=== PATIENT | female | born 1940 | race Caucasian/White ===

== ENCOUNTER 2020-01-11 17:25 | Emergency (ER) | payer MEDICARE, OTHER ==
[~2020-01-11] VITALS: Ht 167.6 cm; Wt 65.8 kg
--- OUTSIDE RECORDS SUMMARY | ~2020-01-11 | XMS | Encounter Summary ---
Demographics + + + | Address | [address] | | | [place] [address] | + + + | Home Phone | | + + + | Preferred Language | Unknown | + + + | Marital Status | | + + + | Uatsdin Affiliation | Unknown | + + + | Race | Unknown | + + + | Ethnic Group | Unknown | + + + Author + + + | Author | [facility] | | | and Petey | + + + | Organization | [facility] | | | and [place] | + + + | Address | Unknown | + + + | Phone | Unavailable | + + + Support + + + + + | Name | Relationship | Address | Phone | + + + + + | Alejandro Corea | ECON | [address] | | | | | [place] [address] | | + + + + + Care Team Providers + +------+ + | Care Embryology Teacher Name | Role | Phone | + +------+ + | Avel Neville MD | PCP | | + +------+ + Reason for Visit + + + | Reason | Comments | + + + | Hand Pain | hands locking | + + + Evaluate & Treat (Routine) +--------+--------+ + + + + | Status | Reason | Specialty | Diagnoses / | Referred By | Referred To | | | | | Procedures | Contact | Contact | +--------+--------+ + + + + | Closed | | Physical | Diagnoses | | [place], | | | | Medicine and | Disturbance | [place], | Aristides Moran MD | | | | Rehabilitatio | of skin | Aristides Moran MD | [address] | | | | n | sensation | [address] | [place] | | | | | Procedures | [place] | [place], [place] | | | | | [place] | [place], [place] | [address] Phone: | | | | | &/SENS 1-2 | [address] | [phone] | | | | | NRV CNDJ | Phone: | Fax: | | | | | PRECONF | [phone] | [phone] | | | | | ELTRODE LIMB | Fax: | | | | | | bilateral | [phone] | | | | | | upper ext | | | | | | | NCS/EMG-weak | | | | | | | ness, | | | | | | | possible CT | | | +--------+--------+ + + + + Encounter Details +--------+ + + + + | Date | Type | Department | Care Team | Description | +--------+ + + + + | 05/08/ | Procedure | [facility] [place] | Aristides Fernandez | Hand weakness | | 2013 | visit | PHYSIATRY [address] | [address] | (Primary Dx) | | | | [address] | [place] | | | | | [place], [place] | [address] | | | | | [address] | | | | | | [phone] | | | +--------+ + + + + Social History + + + +--------+------+ | Tobacco Use | Types | Packs/Day | Years | Date | | | | | Used | | + + + +--------+------+ | Former Smoker | Cigarettes | 1 | 20 | | + + + +--------+------+ + + +---------+ + | Alcohol Use | Drinks/Week | oz/Week | Comments | + + +---------+ + | Yes | | | 1 drink per day | + + +---------+ + + + + | Sex Assigned at | Date Recorded | | | | + + + | Not on file | | + + + + + + + | Job Start Date | Occupation | Industry | + + + + | Not on file | Not on file | Not on file | + + + + + + + + | Travel History | Travel Start | Travel End | + + + + + + | No recent travel history available. | + + documented as of this encounter Last Filed Vital Signs + + + + + | Vital Sign | Reading | Time Taken | Comments | + + + + + | Blood Pressure | 120/74 | 05/08/2014 11:17 AM | | | | | PDT | | + + + + + | Pulse | 59 | 05/08/2014 11:17 AM | | | | | PDT | | + + + + + | Temperature | - | - | | + + + + + | Respiratory Rate | - | - | | + + + + + | Oxygen Saturation | - | - | | + + + + + | Inhaled Oxygen | - | - | | | Concentration | | | | + + + + + | Weight | 67.1 kg (148 lb) | 05/08/2014 11:17 AM | | | | | PDT | | + + + + + | Height | 166.4 cm (5' 5.5") | 05/08/2014 11:17 AM | | | | | PDT | | + + + + + | Body Mass Index | 24.25 | 05/08/2014 11:17 AM | | | | | PDT | | + + + + + documented in this encounter Progress Notes Aristides Fernandez MD - 05/09/2014 7:14 AM PDT [facility] Musculoskeletal, Sports and Spine, Physiatry [facility] [address] [address] Test Date: 05/08/2014 Patient Name: Yen Corea : 1940 Physician: Aristides Fernandez MD MR #: [id number] Sex: Female Referring Physician: Clayton [place] MD HISTORY: Ms. Yen Corea is a pleasant 73 year-old female who is being seen today at the request of Dr. Clayton [place] for complaints of bilateral hand cramping and pain. She has a lso noticed atrophy of the muscles of the thenar eminences, especially on the left, and weak ness of the hands. She denies any hand cramping. She also denies any significant pain. Geronimo dumont has had a thyroidectomy and takes thyroid supplements. She denies any diabetes, cancer or alcohol abuse. Nerve Conduction Studies Anti Sensory Summary Table Site NR Peak (ms) Norm Peak (ms) P-T Amp (V) Norm P-T Amp Site1 Site2 Delta-P (ms) Dist (cm) Mervin (m/s) Norm Mervin (m/s) Left Radial Anti Sensory (Base 1st Digit) Wrist 3.0 <3.1 33.9 Wrist Base 1st Digit 3.0 0.0 Motor Summary Table Site NR Onset (ms) Norm Onset (ms) O-P Amp (mV) Norm O-P Amp Site1 Site2 Delta-0 (ms) Dist (cm) Mervin (m/s) Norm Mervin (m/s) Left Median Motor (Abd Poll Brev) Wrist 3.7 <4.2 10.6 >5 Elbow Wrist 3.9 22.0 56 >50 Elbow 7.6 9.1 Left Ulnar Motor (Abd Dig Minimi) Wrist 3.1 <4.2 6.7 >3 B Elbow Wrist 3.7 20.0 54 >53 B Elbow 6.8 6.6 A Elbow B Elbow 1.8 10.0 56 >53 A Elbow 8.6 6.1 Comparison Summary Table Site NR Peak (ms) Norm Peak (ms) P-T Amp (V) Site1 Site2 Delta-P (ms) Norm Delta (ms) Left Median/Ulnar Palm Comparison (Wrist - 8cm) Median Palm 2.0 <2.2 108.8 Median Palm Ulnar Palm 0.1 <0.3 Ulnar Palm 2.1 <2.2 30.4 Nerve Conduction Studies Motor Left/Right Comparison Site L Lat (ms) R Lat (ms) L-R Lat (ms) L Amp (mV) R Amp (mV) L-R Amp (%) Site1 Site2 L Ve l (m/s) R Mervin (m/s) L-R Mervin (m/s) Median Motor (Abd Poll Brev) Wrist 3.7 10.6 Elbow Wrist 56 Elbow 7.6 9.1 Ulnar Motor (Abd Dig Minimi) Wrist 3.1 6.7 B Elbow Wrist 54 B Elbow 6.8 6.6 A Elbow B Elbow 56 A Elbow 8.6 6.1 Anti Sensory Left/Right Comparison Site L Lat (ms) R Lat (ms) L-R Lat (ms) L Amp (V) R Amp (V) L-R Amp (%) Site1 Site2 L Mervin (m/s) R Mervin (m/s) L-R Mervin (m/s) Radial Anti Sensory (Base 1st Digit) Wrist 3.0 33.9 Wrist Base 1st Digit Comparison Left/Right Comparison Site L Lat (ms) R Lat (ms) L-R Lat (ms) L Amp (V) R Amp (V) L-R Amp (%) Median/Ulnar Palm Comparison (Wrist - 8cm) Median Palm 2.0 108.8 Ulnar Palm 2.1 30.4 NCV FINDINGS: All nerve conduction studies (as indicated in the preceding tables) were well within normal limits. EMG FINDINGS: No needle EMG was performed today per the patient s request. IMPRESSION: Normal nerve conduction studies on the left upper extremity without any neurologic explanat ion for the patient s symptoms. Specifically, there was no evidence of carpal tunnel syndrome, ulnar neuropathy or peripher al neuropathy. She does report a history of chronic cramping of the feet and hands. She has noticed that this improves with good hydration and intake of electrolytes such as potassium. She does also have a lot of arthritis in the hands which may have contributed to some disco mfort and weakness. I do often see thenar eminence atrophy without denervation in patients with significant 1st CMC arthritis. The study was requested as testing of bilateral upper extremities but after the left upper extremity was found to be normal testing was discontinued per the patient request. Thank you for allowing me to perform neurodiagnostic testing on your patient. If you have a ny further questions or comments, please do not hesitate to call. Aristides Fernandez MD Fellow, [employer]. documented in thi s encounter Plan of Treatment +--------+---------+ + + + | Date | Type | Specialty | Care Team | Description | +--------+---------+ + + + | 05/27/ | Office | Cardiology | [place], | | | 2019 | Visit | | MD [address]ooja LEAL | | | | | | [place] | | | | | | [address] | | | | | | | | +--------+---------+ + + + documented as of this encounter Visit Diagnoses + + | Diagnosis | + + | Hand weakness - Primary Muscle weakness (generalized) | + + documented in this encounter
--- OUTSIDE RECORDS SUMMARY | ~2020-01-11 | XMS | Encounter Summary ---
Demographics + + + | Address | [address] | | | [place] [address] | + + + | Home Phone | | + + + | Preferred Language | Unknown | + + + | Marital Status | | + + + | Yarsanism Affiliation | Unknown | + + + | Race | Unknown | + + + | Ethnic Group | Unknown | + + + Author + + + | Author | [facility] | | | and [place]ey | + + + | Organization | [facility] | | | and [place] | + + + | Address | Unknown | + + + | Phone | Unavailable | + + + Support + + + + + | Name | Relationship | Address | Phone | + + + + + | Alejandro Corea | ECON | [address] | | | | | [place] [address] | | + + + + + Care Team Providers + +------+ + | Care Cold Water Machine Operator Name | Role | Phone | + +------+ + PCP | Unavailable | + +------+ + Encounter Details +--------+ + + + + | Date | Type | Department | Care Team | Description | +--------+ + + + + | 06/06/ | Hospital | [facility] | | | | 1990 - | Encounter | MED CTR GENERIC OP | | | | | | CONV DEPT [address] | | | | 09/05/ | | [place], | | | | 1990 | | [place] [address] | | | | | | [phone] | | | +--------+ + + + + Social History + +-------+ +--------+------+ | Tobacco Use | Types | Packs/Day | Years | Date | | | | | Used | | + +-------+ +--------+------+ | Never Assessed | | | | | + +-------+ +--------+------+ + + + | Sex Assigned at [...] + + documented as of this encounter Plan of Treatment +--------+---------+ + + + | Date | Type | Specialty | Care Team | Description | +--------+---------+ + + + | 02/14/ | Office | Cardiology | [place], | | | 2019 | Visit | | MD [address]ooja LEAL | | | | | | [place] | | | | | | [id number] | | | | | | | | +--------+---------+ + + + documented as of this encounter Visit Diagnoses Not on filedocumented in this encounter"
--- OUTSIDE RECORDS SUMMARY | ~2020-01-11 | XMS | Encounter Summary ---
Demographics + + + | Address | [address] | | | [place] [address] | + + + | Home Phone | | + + + | Preferred Language | Unknown | + + + | Marital Status | | + + + | Baptist Affiliation | Unknown | + + + | Race | Unknown | + + + | Ethnic Group | Unknown | + + + Author + + + | Author | [facility] | | | and [place] | + + + | Organization | [facility] | | | and [place] | + + + | Address | Unknown | + + + | Phone | Unavailable | + + + Support + + + + + | Name | Relationship | Address | Phone | + + + + + | Alejandro Corea | ECON | [address] | | | | | [place] [address] | | + + + + + Care Team Providers + +------+ + | Care Deburring And Tooling Machine Operator Name | Role | Phone | + +------+ + | Avel Neville MD | PCP | | + +------+ + Reason for Visit +--------+ + | Reason | Comments | +--------+ + | Asthma | follow up | +--------+ + Encounter Details +--------+---------+ + + + | Date | Type | Department | Care Team | Description | +--------+---------+ + + + | 12/17/ | Office | [facility] [place] | [place], | Chronic bronchitis | | 2016 | Visit | PULMONARY [address] | Bela Funez MD | with productive | | | | [place], | | mucopurulent cough | | | | [place] [address] | | (HCC) (Primary Dx); | | | | [phone] | | Moderate persistent | | | | | | asthma with acute | | | | | | exacerbation; | | | | | | Allergic rhinitis | | | | | | due to pollen | +--------+---------+ + + + Social History + + + +--------+ + | Tobacco Use | Types | Packs/Day | Years | Date | | | | | Used | | + + + +--------+ + | Former Smoker | Cigarettes | 0.7 | 30 | Quit: 09/04/1999 | + + + +--------+ + + + +---------+ + | Alcohol Use | Drinks/Week | oz/Week | Comments | + + +---------+ + | Yes | 7 Standard drinks | 7.0 | About 2oz per day | | | or equivalent | | | + + +---------+ + + + [...] + + + | Blood Pressure | 104/62 | 12/18/2015 3:05 PM | | | | | PDT | | + + + + + | Pulse | 71 | 12/18/2015 3:05 PM | | | | | PDT | | + + + + + | Temperature | - | - | | + + + + + | Respiratory Rate | - | - | | + + + + + | Oxygen Saturation | 98% | 12/18/2015 3:05 PM | | | | | PDT | | + + + + + | Inhaled Oxygen | - | - | | | Concentration | | | | + + + + + | Weight | 72.3 kg (159 lb 8 | 12/18/2015 3:05 PM | | | | oz) | PDT | | + + + + + | Height | 167.6 cm (5' 6") | 12/18/2015 3:05 PM | | | | | PDT | | + + + + + | Body Mass Index | 25.74 | 12/18/2015 3:05 PM | | | | | PDT | | + + + + + documented in this encounter Patient Instructions Patient Instructions Bela Eric MD - 12/18/2015 4:02 PM PDTNo changes today. I think overall you are doing well. We will give you the methylprednisolone injection today. If you do not improve, let me know . documented in this encounter Progress Notes Bela Eric MD - 12/18/2015 3:11 PM PDTFormatting of this note might be differe nt from the original. Pulmonary Follow Up Note HPI Yen Corea is a 75 y.o. female patient of Avel Neville here today for follo w up of asthma and chronic bronchitis. At their last visit, we increased her Advair to twice daily. They return today for routine follow up. Since last seen, she feels like overall she has done well. She has not been sick or had to take prednisone. Her controller regimen consists of Advair 250 mcg 1 inhalation twice daily theophylline 300 mg daily and Singulair 10mg daily. She used her albuterol once since last seen. She notes that in the spring, she usually gets a cough with a sticky clear mucous and hoars e voice. She often gets a Kenalog shot for this as she finds it helps. She typically gets on e steroid shot per year. She does not have symptoms of nasal congestion, rhinorrhea and post nasal drip. She is on c etirizine 10mg daily for treatment of this. She does have symptoms of heartburn or acid reflux. She is taking Prilosec once daily. Past Medical History Past Medical History Diagnosis Date Asthma Allergic rhinitis Fractured nose Osteopenia COPD (chronic obstructive pulmonary disease) ([facility]) Constipation, chronic Hyperlipidemia Hypothermia due to non-environmental cause Hypothyroidism Lichen planus Osteoarthritis Raynaud's syndrome Spinal stenosis Thrombophlebitis Vitamin D deficiency Radiculopathy, lumbosacral region Edema Essential hypertension GERD (gastroesophageal reflux disease) Low back pain Menopausal disorder Osteoarthrosis Exanthem Contact urticaria Varicose veins of lower extremities with complications Venous insufficiency Vaginitis TIA (transient ischemic attack) echo @ [facility] 08/06/15 unsrue of results Heart beat abnormality Anxiety Osteoporosis Bilateral low back pain with sciatica 11/19/2015 Lumbar radiculopathy 11/19/2015 Past Surgical History Past Surgical History Procedure Laterality Date Anastacio and bso 1979 Appendectomy Thyroidectomy 2000 Tonsillectomy Micro venectomy Bilateral 01/04/2014 legs Breast cyst excision Total knee arthroplasty 01/2015 Dr. 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 Social History Main Topics Smoking status: Former Smoker -- 0.70 packs/day for 30 years Types: Cigarettes Quit date: 09/04/1999 Smokeless tobacco: Not on file Alcohol Use: 4.2 oz/week 7 Standard drinks or equivalent per week Comment: About 2oz per day Drug Use: No Sexual Activity: No Other Topics Concern None Social History Narrative Lives: in [place] With: her anastasiya Grew up: in [place], [place] Has previously lived in: [place], [place], [place], [place] Exposure to toxic chemicals: yes, not sure of type Exposure to asbestos: no Exposure to tuberculosis: no Has had a PPD or Quantiferon before: yes, last many years ago Has pets at home: 1 cat Has ever owned birds: no Other animal exposures: no Hobbies: art, travel camping, fishing Allergies: Allergies Allergen Reactions Amoxicillin Hives and Rash Dust Mite Extract Meperidine Molds & Smuts Oxycodone Medications: Outpatient Encounter Prescriptions as of 12/18/2015 Medication Sig Dispense Refill albuterol (PROAIR HFA) 90 mcg/puff inhaler Inhale 2 puffs into the lungs every 6 hours as needed for Wheezing or Shortness of Breath. 1 Inhaler 3 albuterol 2.5 mg/3 mL nebulizer solution Take 2.5 mg by nebulization every 6 hours as n eeded. aspirin 325 mg tablet Take 325 mg by mouth Daily. busPIRone (BUSPAR) 10 MG tablet Take 5 mg by mouth every morning. CTGLQRY-SPSRODLEX-WCXP PO TABS. 2 tablets by mouth daily Calcium-Vitamin D 600-200 MG-UNIT TABS Take 1 tablet by mouth Daily. cetirizine (ZYRTEC) 10 mg tablet Take 1 tablet by mouth Daily. 30 tablet 11 Cholecalciferol (VITAMIN D3 PO) CAPS. 2 capsules by mouth daily Cranberry 300 MG TABS Take 1 tablet by mouth Daily. estradiol (CHAD) 0.05 mg/24 hr One tablet by mouth daily fluticasone (FLONASE) 50 mcg/nasal spray instill 2 sprays into each nostril once daily 16 g 11 fluticasone-salmeterol (ADVAIR DISKUS) 250-50 mcg/puff diskus inhaler inhale 1 dose by mouth twice a day 60 each 6 HYDROcodone-acetaminophen (VICODIN) 5-500 mg per tablet Take 1 tablet by mouth every 6 hours as needed. ipratropium (ATROVENT HFA) 17 mcg/puff inhaler 2 puffs inhaled every 4 hours as needed for shortness of breath Lactobacillus (ACIDOPHILUS) TABS 4 tablets by mouth daily levothyroxine (LEVOXYL) 112 mcg tablet Take 112 mcg by mouth Every other day. montelukast (SINGULAIR) 10 mg tablet Take 1 tablet by mouth Daily. 30 tablet 6 multivitamin (THERAGRAN) per tablet 1 tablet by mouth daily omeprazole (PRILOSEC) 40 MG capsule Take 40 mg by mouth every morning (before breakfast ). potassium chloride (KLOR-CON) 10 mEq CR tablet Take 20 mEq by mouth 2 times daily. promethazine-codeine (PHENERGAN WITH CODEINE) 6.25-10 mg/5 mL syrup Take 5-10 mLs by [facility] 4 times daily as needed for Cough. tacrolimus (PROTOPIC) 0.1 % ointment Apply topically 2 times daily. theophylline (THEOPHYLLINE) 300 mg 12 hr tablet Take 300 mg by mouth 2 times daily. thyroid (ARMOUR) 15 MG tablet Take 15 mg by mouth Daily. triamcinolone (KENALOG) 0.1% paste Place onto teeth 2 times daily. triamterene-hydrochlorothiazide (MAXZIDE) 75-50 mg per tablet Take 75-50 mg by mouth as needed. No facility-administered encounter medications on file as of 12/18/2015. Review of Systems: General: [x]Weight loss/gain (over 10 lbs) []Fever/chills/sweats []Night sweats EENT: []Hearing loss []Vision loss/change [x]Sinus congestion/nasal drainage []Nosebleeds []Hoarseness Cardiac: []Chest pain []Palpitations/heart racing []Swelling of legs/ankles []Waking up at night s hort of breath []Difficulty sleeping flat Gastrointestinal: []Nausea/vomiting []Difficulty swallowing [x]Heartburn/acid reflux []Loss of appetite []A bdominal pain Urologic: []Blood in urine []Frequent urination at night []Burning/painful urination []Difficulty wit h urination Objective BP 104/62 mmHg | Pulse 71 | Ht 1.676 m (5' 6") | Wt 72.349 kg (159 lb 8 oz) | BMI 25.76 kg/ m2 | SpO2 98% General Appearance: Alert, cooperative, no distress, appears stated age Head: Normocephalic, without obvious abnormality, atraumatic Eyes: PERRL, conjunctiva clear, no scleral icterus, EOM's intact Ears: Normal TM's, external auditory canals, normal acuity Nose: Nares normal, septum midline, mucosa edematous Mouth: No oral lesions or exudate Neck: Supple, symmetrical, no adenopathy Lungs: No accessory muscle use, breath sounds are somewhat diminished bilaterally with so me prolongation of the expiratory phase, no wheezes, crackles or rhonchi Chest Wall: No deformity Heart: Regular rate and rhythm, no murmur, rub or gallop Abdomen: Soft, non-tender, non-distended Extremities: No cyanosis, clubbing, or edema Pulses: Radial pulses 2+ and symmetric Skin: Warm and dry Lymph nodes: Cervical and supraclavicular nodes normal Data: Immunization History Administered Date(s) Administered INFLUENZA, TRIVALENT PRESERVATIVE FREE (PED/ADOL/ADULT) 05/05/2015 PNEUMOCOCCAL CONJUGATE 13-VALENT (PCV13) 05/05/2015 Assessment ICD-10-CM ICD-9-CM 1. Chronic bronchitis with productive mucopurulent cough (HCC) J41.1 491.1 She feels she ne eds a steroid injection today as she is slipping down the pathway towards worsening. Otherwise we will continue her current regimen. methylprednisoLONE acetate (DEPO-MEDROL) 80 mg/mL injection 80 mg 2. Moderate persistent asthma with acute exacerbation J45.41 493.92 On Singulair, Advair an d theophylline. She feels like this has worked well for some time for her. 3. Allergic rhinitis due to pollen J30.1 477.0 No current symptoms. On Singulair, cetirizin e and fluticasone nasal spray. Plan 1.Continue on Advair 250 mcg dose. If she has more exacerbations, consider change to 500 mc g dose, though as I recall, she never felt she did better on this. 2.Continue theophylline 300mg once daily. 3.Continue on montelukast 10mg daily. 4. Continue on fluticasone nasal spray 2 sprays to each nostril daily and cetirizine 10mg d aily. 5. Medications were refilled for 1 year. 6. Methylprednisolone 80mg IM given x 1 today. She was advised to call if new pulmonary symptoms were to develop. Return to clinic in 6 months, or sooner with concerns. CC: Avel Neville Portions of this report were transcribed using voice recognition software. Every effort wa s made to ensure accuracy; however, inadvertent computerized corporate claims examiner errors may be pre sent. documented in t his encounter Plan of Treatment +--------+---------+ + + + | Date | Type | Specialty | Care Team | Description | +--------+---------+ + + + | 02/14/ | Office | Cardiology | [place], | | | 2019 | Visit | | MD [address]ooja LEAL | | | | | | [place] | | | | | | [id number] | | | | | | | | +--------+---------+ + + + documented as of this encounter Visit Diagnoses + + | Diagnosis | + + | Chronic bronchitis with productive mucopurulent cough (HCC) - Primary Mucopurulent | | chronic bronchitis | + + | Moderate persistent asthma with acute exacerbation | + + | Allergic rhinitis due to pollen | + + documented in this encounter
--- OUTSIDE RECORDS SUMMARY | ~2020-01-11 | XMS | Encounter Summary ---
Demographics + + + | Address | [address] | | | [place] [address] | + + + | Home Phone | | + + + | Preferred Language | Unknown | + + + | Marital Status | | + + + | Zoroastrianism Affiliation | Unknown | + + + | Race | Unknown | + + + | Ethnic Group | Unknown | + + + Author + + + | Author | [facility] | | | and [place] | + + + | Organization | [facility] | | | and [place] | + + + | Address | Unknown | + + + | Phone | Unavailable | + + + Support + + + + + | Name | Relationship | Address | Phone | + + + + + | Alejandro Corea | ECON | [address] | | | | | [place] [address] | | + + + + + Care Team Providers + +------+ + | Care Structural Drafter Name | Role | Phone | + +------+ + PCP | Unavailable | + +------+ + Encounter Details +--------+ + + + + | Date | Type | Department | Care Team | Description | +--------+ + + + + | 06/02/ | Abstract | [place] [facility] | DATA MIGRATION JONATHAN | | | 2011 | | Conversion Location | SR | | | | | [facility] | | | | | | [place], [place] | | | | | | [address] | | | | | | [phone] | | | +--------+ + + + [...] + + + | Blood Pressure | 120/78 | 04/21/2012 12:00 AM | | | | | PDT | | + + + + + | Pulse | - | - | | + [...] + + + + | Weight | 71.4 kg (157 lb 8 | 04/21/2012 12:00 AM | | | | oz) | PDT | | + + + + + | Height | 168.9 cm (5' 6.5") | 05/13/2010 12:00 AM | | | | | PDT | | + + + + + | Body Mass Index | 25.04 | 05/13/2010 12:00 AM | | | | | PDT | | + + + + + documented in this encounter Plan of Treatment +--------+---------+ + + + | Date | Type | Specialty | Care Team | Description | +--------+---------+ + + + | 02/14/ | Office | Cardiology | Jon [place], | | | 2019 | Visit | | MD Pooja LEAL | | | | | | [place] | | | | | | [address] | | | | | | | | +--------+---------+ + + + documented as of this encounter Visit Diagnoses Not on filedocumented in this encounter
--- OUTSIDE RECORDS SUMMARY | ~2020-01-11 | XMS | Encounter Summary ---
Demographics + + + | Address | [address] | | | [place] [address] | + + + | Home Phone | | + + + | Preferred Language | Unknown | + + + | Marital Status | | + + + | Synagogue Affiliation | Unknown | + + + | Race | Unknown | + + + | Ethnic Group | Unknown | + + + Author + + + | Author | [facility] | | | and [place] | + + + | Organization | [facility] | | | and [place] | + + + | Address | Unknown | + + + | Phone | Unavailable | + + + Support + + + + + | Name | Relationship | Address | Phone | + + + + + | Alejandro Corea | ECON | [address] | | | | | [place] [address] | | + + + + + Care Team Providers + +------+ + | Care Electric Meter Tester Name | Role | Phone | + +------+ + | Avel Neville MD | PCP | | + +------+ + Reason for Referral Surgical (Routine) +--------+ + + + + + | Status | Reason | Specialty | Diagnoses / | Referred By | Referred To | | | | | Procedures | Contact | Contact | +--------+ + + + + + | Closed | Specialty | Surgery / | Diagnoses | Field, | Field, | | | Services | General | Varicose | Jignesh Roca, | Jignesh Roca, | | | Required | Surgery | veins of | MD, FACS | MD, FACS [address] | | | | | lower | [address] | [address] | | | | | extremities | [place], | | | | | with other | [place], [place] | [place] [address] | | | | | complication | [id number] | Phone: | | | | | s | Phone: | [phone] | | | | | Procedures | [phone] | Fax: | | | | | SD PHLEB | Fax: | [phone] | | | | | VEINS - | [phone] | | | | | | EXTREM - TO | | | | | | | [address] SD | | | | | | | INJECTION | | | | | | | THERAPY | | | | | | | VEIN,MULT | | | | | | | VEINS | | | +--------+ + + + + + Reason for Visit + + + | Reason | Comments | + + + | 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 | Jignesh Benjamin | Varicose veins of | | 2012 | Visit | SURGERY [address] | MD Chanelle, FACS [address] | lower extremities | | | | [place], [place] | [address] [facility] | with other | | | | [address] | [place] [address] | complications | | | | [phone] | [phone] | (Primary Dx) | | | | | | | +--------+---------+ + + + Social History [...] Comments | + + +---------+ + | Not Asked | | | | + + +---------+ + [...] + + + | Blood Pressure | 122/68 | 08/10/2013 9:09 AM | | | | | PST | | + + + + + | Pulse | 60 | 08/10/2013 9:09 AM | | | | | PST | | + + + + + | Temperature | 35.8 C (96.5 F) | 08/10/2013 9:09 AM | | | | | PST | | + + + + + | Respiratory Rate | - | - | | + + + + + | Oxygen Saturation | 100% | 08/10/2013 9:09 AM | | | | | PST | | + + + + + | Inhaled Oxygen | - | - | | | Concentration | | | | + + + + + | Weight | 64 kg (141 lb) | 08/10/2013 9:09 AM | | | | | PST | | + + + + + | Height | 166.4 cm (5' 5.5") | 08/10/2013 9:09 AM | | | | | PST | | + + + + + | Body Mass Index | 23.11 | 08/10/2013 9:09 AM | | | | | PST | | + + + + + documented in this encounter Progress Notes Ines Bullard RN - 08/11/2013 4:19 PM PST Fr max Hawthorne MD - 08/10/2013 9:07 AM PSTFormatting of this note might be different from the o riginal. Patient Identification: Yen Corea 1940 Is a 73 y.o. female, a patient of Avel Neville. 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 Eg- pain, heaviness, unsightly, bleeding, clots. Burning, deep ache , bleed easily--if scratches, then gets knots and the veins bleed. Oft en bleeds in the shower. Puts legs up. Which leg is the worst? right When did you start getting varicose veins ? In the 80's, or early 70;s Have you tried wearing compression or support stockings? yes Have you had previous treatment for varicosities? Eg injection sclerotherapy, laser or r adiofrequency ablation or surgery ? Yes, laser treatments--Dr from [place] to the [facility] in [place]. Turned brown a nd stayed there. Was the little veins. Physician notes: Notes the big veins bother her. Had ultrasound at [facility] and said the valves are gone. And Dr Gary said unrepairable. Right one hurts the worse. Not concerned about appeara nce, just the health of her legs. When they break they burn and bleed. And it feels like a bite. Also deep inside, questionable ached. From calf to medial thigh. Relieved with Elevating legs. Pain runs through. --happens frequently, but doesn't stay. Wearing comp ression stockings helps somewhat. Wear with travel and plane. And when she exercises. Wa lked a [place] two years ago. Did the [place] Did 10 Hours. 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 4 lbs. Avel Neville's notes were reviewed in clinic today. PAST MEDICAL HISTORY She has a past medical history of Asthma; Allergic rhinitis; Sprained ankle; Fractured nose ; and BRONCHITIS, OBSTRUCTIVE CHRONIC. Past Surgical History She Past Surgical History Procedure Date Anastacio and bso Appendectomy Thyroidectomy Tonsillectomy Allergies Allergen Reactions Amoxicillin Oxycodone Medications: She has a current medication list which includes the following prescription(s): advair disk us, proair hfa, thyroid, buspirone, lpttaxh-cxsakfffv-aivy, caltrate 600+d, cholecalciferol, kvng, fluticasone, atrovent hfa, acidophilus, levothyroxine, levothyroxine, claritin, mult ivitamin, omeprazole, potassium chloride, theophylline, triamterene-hydrochlorothiazide, and accolate. Family History: Her family history includes Allergies in her father; Colon cancer in an unspecified family member; and Coronary artery disease in her father. Social History: She reports that she has quit smoking. Her smoking use included Cigarettes. She has a 20 pa ck-year smoking history. She does not have any smokeless tobacco history on file. REVIEW OF SYSTEMS General: []Weight loss/gain (over 10 lbs) []Fever/chills []Night sweats Hematologic: []Bleeding/brusing tendencies []Blood transfusion []Anemia Heent: []Hearing loss []Vision loss []Sinus problems/nosebleeds []Hoarseness Respiratory: []Wheezing []Shortness of breat [x]Cough []Spitting up blood []On oxygen Cardiac: []Chest pain []Palpitations/heart racing []Swelling of ankles/hands []Unusual shortness of breath []Difficulty sleeping flat Gastrointestinal: []Nausea/vomiting []Difficulty swallowing [x]Heartburn []Loss of appetite []Abdominal mateo n []Stomach Ulcers []Diarrhea []Constipation []Blood in stool Vascular: []Perry/TIAs []Fainting []Difficulty with speech [x]Leg cramps []Pain in feet/legs at rest []Foot ulcers/sores [x]Varicose veins []Phlebitis/blood clots Musculoskeletal: [x]Joint stiffness/swelling []Join pain []Back pain []Arthritis []Gout Urologic: []Blood in urine []Frequent urination at night []Burning/painful urination []Kidney stones []Difficulty urination [x]Sexual difficulties Neuro/Psychiatric: []Headaches []Seizures []Depression []Pain/anxiety attacks []Memory loss or confusion PHYSICAL EXAM BP 122/68 | Pulse 60 | Temp 35.8 C (96.5 F) (Temporal) | Ht 1.664 m (5' 5.5") | Wt 63.9 57 kg (141 lb) | BMI 23.11 kg/m2 | SpO2 100% General Appearance: Alert, cooperative, no distress, appears stated age Head: Normocephalic, without obvious abnormality, atraumatic Eyes: PERRL, conjunctiva/corneas clear, EOM's intact Ears: Hearing adequate Nose: Nares normal Throat: Lips, mucosa, and tongue normal; teeth and gums normal Neck: Supple, symmetrical, no adenopathy, no neck bruits Lungs: Breath sounds are equal bilaterally, no wheezes or crackles Chest Wall/Back: No tenderness or deformity. No CVA tenderness Heart: Regular rate and rhythm, no murmur. Abdomen: Soft, non-tender, no pulsatile nor other masses, scars Extremities: Varicosities: LEFT leg Knee 3 mm varicosity , fonseca 3 mm varicosity RIGHT leg 5 mm varicosity, Anterior thigh maria del rosario 4 mm varicosity. Skin: Hemosiderin scattered ankle Ulceration none Edema: None Palpable Pulses*: Femoral Popliteal Dorsalis pedis Post tibial LEFT 2+ 2+ trace 2+ RIGHT 2+ 2+ 2+ 2+ Ultrasound: See report. Neurologic: Cranial nerves II-XII grossly intact, Gait normal ULTRASOUND REPORT: PATIENT NAME : Yen Corea EQUIPMENT: SonDataSync M-Turbo with 10-5 mHertz probe. INDICATIONS: Bleeding spider varicosities bilateral ankles FINDING: Right: GSV 2.9 mm with no reflux and becomes subcutaneous in the mid thigh. LSV 1.8 mm with no reflux. Left: GSV 2.4 mm with no reflux and becomes subcutaneous in the mid thigh. IMPRESSION: No significant refluxing greater or lesser saphenous veins, bilateral. Assessment Yen was seen today for new patient. Diagnoses and associated orders for this visit: Varicose veins of lower extremities with other complications - Ambulatory referral to General Surgery Plan 1)Recommend bilateral microvenectomy (left and right leg), two days off work.) Then one m onth later will need schlerotherapy.--probably 2-3 sessions per leg. Once obliteration of varicosities had accomplished then may benefit from diprosone cream. Return to clinic per patients schedule. Jignesh Benjamin MD, FACS Vascular and General Surgery CC: Avel Neville documented in this encounter Plan of Treatment +--------+---------+ + + + | Date | Type | Specialty | Care Team | Description | +--------+---------+ + + + | 02/14/ | Office | Cardiology | Jon Koehler, | | | 2019 | Visit | | MD Pooja LEAL | | | | | | [place] | | | | | | [address] | | | | | | | | +--------+---------+ + + + + + +--------+ + + | Name | Type | Priori | Associated Diagnoses | Order Schedule | | | | ty | | | + + +--------+ + + | Ambulatory referral | Outpatient | Routin | Varicose veins of | Ordered: 08/11/2013 | | to General Surgery | Referral | e | lower extremities | | | | | | with other | | | | | | complications | | + + +--------+ + + documented as of this encounter Visit Diagnoses + + | Diagnosis | + + | Varicose veins of lower extremities with other complications - Primary | + + documented in this encounter
--- OUTSIDE RECORDS SUMMARY | ~2020-01-11 | XMS | Encounter Summary ---
Demographics + + + | Address | [address] | | | [place] [address] | + + + | Home Phone | | + + + | Preferred Language | Unknown | + + + | Marital Status | | + + + | Christian Affiliation | Unknown | + + + | Race | Unknown | + + + | Ethnic Group | Unknown | + + + Author + + + | Author | [facility] | | | and Petey | + + + | Organization | [facility] | | | and [place] | + + + | Address | Unknown | + + + | Phone | Unavailable | + + + Support + + + + + | Name | Relationship | Address | Phone | + + + + + | Alejandro Corea | ECON | [address] | | | | | [place] [address] | | + + + + + Care Team Providers + +------+ + | Care Double Needle Operator Lockstitch Name | Role | Phone | + +------+ + | Avel Neville MD | PCP | | + +------+ + Reason for Referral Evaluate & Treat (Routine) +--------+ + + + + + | Status | Reason | Specialty | Diagnoses / | Referred By | Referred To | | | | | Procedures | Contact | Contact | +--------+ + + + + + | Closed | Specialty | Physical | Diagnoses | | [facility] | | | Services | Therapy | Bilateral | Danette, | ANTON[facility] | | | Required | | low back | Misty, | HOSPITAL | | | | | pain with | PA-C [address] | | | | | sciatica, | [address], | [address]VE | | | | | sciatica | [address] | [place], [place] | | | | | laterality | [place] | [address] | | | | | unspecified | [address] | Phone: | | | | | Spinal | Phone: | [phone] | | | | | stenosis of | [phone] | Fax: | | | | | lumbar | Fax: | [phone] | | | | | region | [phone] | | | | | | Lumbar | | | | | | | radiculopath | | | | | | | y | | | +--------+ + + + + + Reason for Visit + + + | Reason | Comments | + + + | Back Pain | low back pain | + + + | Groin Pain | both, right worse than left | + + + Evaluate & Treat (Routine) +--------+ + + + + + | Status | Reason | Specialty | Diagnoses / | Referred By | Referred To | | | | | Procedures | Contact | Contact | +--------+ + + + + + | Closed | Specialty | Physical | Diagnoses | Derek, | Rebecca, | | | Services | Medicine and | Acquired | Rene Franco, | Aristides Moran MD | | | Required | Rehabilitatio | spondylolist | PA-C [address] | | | | n | hesis | [address] | [address] [place] | | | | | Lumbar | [address] | [place], [place] | | | | | spinal | [place], | [address] Phone: | | | | | stenosis | [place] [address] | [phone] | | | | | Lumbar | Phone: | Fax: | | | | | foraminal | [phone] | [phone] | | | | | stenosis | Fax: | | | | | | Lumbar | [phone] | | | | | | radiculopath | | | | | | | y | | | +--------+ + + + + + Encounter Details +--------+---------+ + + + | Date | Type | Department | Care Team | Description | +--------+---------+ + + + | / | Office | [facility] | Danette, | Bilateral low back | | 2015 | Visit | PHYSIATRY [address] | [address] | pain with sciatica, | | | | [address] | [address] | sciatica laterality | | | | [place], [place] | [place] [address] | unspecified (Primary | | | | [address] | [phone] | Dx); Spinal | | | | [phone] | | stenosis of lumbar | | | | | | region; Lumbar | | | | | | radiculopathy | +--------+---------+ + + + Social History [...] + + + | Blood Pressure | 111/68 | 11/19/2015 1:47 PM | | | | | PST | | + + + + + | Pulse | 70 | 11/19/2015 1:47 PM | | | | | PST | | + + + + + | Temperature | - | - | | + + + + + | Respiratory Rate | 16 | 11/19/2015 1:47 PM | | | | | PST | | + + + + + | Oxygen Saturation | - | - | | + + + + + | Inhaled Oxygen | - | - | | | Concentration | | | | + + + + + | Weight | 70.9 kg (156 lb 4.8 | 11/19/2015 1:47 PM | | | | oz) | PST | | + + + + + | Height | 167.6 cm (5' 6") | 11/19/2015 1:47 PM | | | | | PST | | + + + + + | Body Mass Index | 25.23 | 11/19/2015 1:47 PM | | | | | PST | | + + + + + documented in this encounter Patient Instructions Patient Instructions Misty Samaniego PA-C - 11/19/2015 2:30 PM PST1) [facility]. I'd like them to do the [facility] Therapy Protocol 2) Steroid injection with Dr. Fernandez Foraminal Stenosis/Radicular Pain: Foraminal stenosis is a narrowing of the spinal foramen, the hole through which passes a s roman nerve as it exits the spine. It is usually a form of degenerative spine disease which occurs slowly over time with wear and tear of the spinal column. Arthritic changes of the s pine, a herniated discs, soft tissue swelling and bony growth can all impinge on the formal foramen and compress the nerve. Because the narrowing (stenosis) of the foramen pinches a nerve, the primary symptoms relat ed to this disorder is directly related to that nerve which is affected. This obviously vari es depending on which foramina are involved. The pinched nerve can lead to basically two cl asses of symptoms. Symptoms include pain in the distribution of that nerve as well as numbne ss, tingling and or weakness can occur. Steroids are a very strong anti-inflammatory, this helps reduce pain by reducing swelling. Complications of steroids are bleeding, infection, and an increase of blood sugars if you are diabetic. correction risk can lead to osteoporosis which is why we limited the number of injections to 3 times per year. With an epidural injection, the nerve root that comes out of the spine and travels down your leg is targeted. The procedure is about 20 minutes long . You will lie on your back while x-rays are taken. Once the region is marked, it is numbe d and then injected with steroids. Spinal Stenosis: Stenosis refers to the narrowing of the spinal cord. This most often occurs with age and generative changes of the spine. Narrowing of the spinal cord causes compression and inflam mation of nerves in the lower back and can cause numbness, pain, and weakness in the back, b uttocks and legs. You may notice you have more pain with standing and walking. It feels be tter to walk more bent over at the waist, while pushing a grocery cart or walker. You get r elief with sitting down. Treatment includes pain medicine, gabapentin, transforaminal epidu ral steroid injections to help reduce swelling, physical therapy and surgery. Steroids are a very strong anti-inflammatory, this helps reduce pain by reducing swelling. Complications of steroids are bleeding, infection, and an increase of blood sugars if you are diabetic. correction risk can lead to osteoporosis which is why we limited the number of injections to 3 times per year. Epidural injections target the spinal stenosis by putting the steroid around the nerves that come out of the spine with hopes the steroid gets into t he region of the stenosis. The procedure is about 20 minutes long. You will lie on your gianfranco k while x-rays are taken. Once the region is marked, it is numbed and then injected with st eroids. Follow-up at the hospital thirty minutes before your scheduled procedure to allow for time to check in. You may eat and drink as usual on the day of the procedure. If you are scheduled for an epidural injection do not take any blood thinning medications f or at least 5-7 days prior to your procedure unless you have been instructed by another phys ician not to discontinue blood thinning medications. If you are having a procedure other than an epidural injection (i.e. facet injection, media l branch block, SI joint injection or other joint injection) it is not absolutely necessary to discontinue blood thinning medications but doing so will decrease the risk of bruising or bleeding. If you have had a prior stroke, DVT or PE or if you are taking blood thinning medication be cause you have atrial fibrillation, a prosthetic cardiac valve replacement or heart stenting do not stop taking your blood thinning medications unless you have permission from your car diologist or primary care provider. All other medications should be taken as usual on the day of the procedure. Common blood thinning medications include: Aspirin (a baby aspirin is o.k.) Ibuprofen (Advil or Motrin) Naproxen (Aleve) Nabumetone (Relafen) Clopidogrel (Plavix) Dipyridamole/ASA (Aggrenox) Warfarin (Coumadin) Dabigatran (Pradaxa) Rivaroxaban (Xarelto) There are many others. If you have questions about your medications and whether or not you should stop any medications please contact our office. If you are having an epidural injection or if you take any medication for relaxation/sedati on on the day of the procedure you must provide a service parts driver to take you home. For all procedur es it is recommended that someone else drive you home. documented in this encounter Progress Notes Misty Samaniego PA-C - 11/19/2015 1:51 PM PSTFormatting of this note might be differe nt from the original. CHIEF COMPLAINT: Chief Complaint Patient presents with Back Pain low back pain Groin Pain both, right worse than left HISTORY OF PRESENT ILLNESS: The patient is a 75 y.o. female being seen today for complaint s of low back pain that began over 25 years ago, but she states has worsened in the last yea r from no known injury or insult. She describes the pain as a aching and sharp feeling to her buttocks region. She rates the pain as mild. Her symptoms worsen with walking. Her symptoms improve with sitting. She reports to have leg symptoms bilaterally, they go into her anterior thighs and posterio r thighs. The patient does not describe numbness of the legs. She does report weakness of the legs and states last month walking with her girlfriends and she was in extreme pain with walking. She does not have bowel and bladder dysfunction. She does not have saddle anesthesia. Treatments for these complaints have included PT over 1-year ago, massage, TENS unit, NSAID S, muscle relaxants. Patient's medications, allergies, past medical, surgical, social and family histories were reviewed and updated as appropriate. PAST MEDICAL HISTORY: Past Medical History Diagnosis Date Asthma Allergic rhinitis Fractured nose Osteopenia COPD (chronic obstructive pulmonary disease) (HCC) Constipation, chronic Hyperlipidemia Hypothermia due to non-environmental cause Hypothyroidism Lichen planus Osteoarthritis Raynaud's syndrome Spinal stenosis Thrombophlebitis Vitamin D deficiency Radiculopathy, lumbosacral region Edema Essential hypertension GERD (gastroesophageal reflux disease) Low back pain Menopausal disorder Osteoarthrosis Exanthem Contact urticaria Varicose veins of lower extremities with complications Venous insufficiency Vaginitis TIA (transient ischemic attack) echo @ [facility] 08/06/15 unsrue of results Heart beat abnormality Anxiety Osteoporosis Bilateral low back pain with sciatica 11/19/2015 Lumbar radiculopathy 11/19/2015 PAST SURGICAL HISTORY: Past Surgical History Procedure Laterality Date Anastacio and bso 1979 Appendectomy Thyroidectomy 2000 Tonsillectomy Micro venectomy Bilateral 01/04/2014 legs Breast cyst excision Total knee arthroplasty 01/2015 [facility] CURRENT MEDICATIONS: Current Outpatient Prescriptions Medication Sig Dispense Refill albuterol (PROAIR HFA) [...] Take 5 mg by mouth every morning. [id number] PO TABS. 2 tablets by mouth daily [...] mg/5 mL syrup Take 5-10 mLs [facility] 4 times daily as needed for Cough. [...] 75-50 mg by mouth as needed. No current facility-administered medications for this visit. ALLERGIES: Allergies Allergen Reactions Amoxicillin Hives and Rash Dust Mite Extract Meperidine Molds & Smuts Oxycodone SOCIAL HISTORY: The patient reports that she quit smoking about 16 years ago. Her smoking use included Cig arettes. She has a 21 pack-year smoking history. She does not have any smokeless tobacco his tory on file. She reports that she drinks about 4.2 oz of alcohol per week. She reports that she does not use illicit drugs. FAMILY HISTORY: Family History Problem Relation Age of Onset Coronary artery disease Father Allergies Father Cancer Father lymphoma Colon cancer Paternal Grandmother Lung cancer Sister Muscle Disease Mother ALS Hypertension Brother Heart disease Maternal Grandfather Cancer Maternal Grandmother REVIEW OF SYSTEMS: GENERALLY: No fever, chills, no night sweats, + weight gain, no weight loss, no anemia, n o fatigue. EYES: No eye problems, no impaired sight, + eye glasses/contacts, no eye injury, no double vision, no transient blindness. EARS, NOSE, THROAT and MOUTH: No change in sense taste/smell, no hearing difficulty, no ri nging in ears, no drainage from ears, no ear injury, no dizziness, no voice change, no diffi culty swallowing, no snoring, no sleep apnea/CPAP, no sinus trouble, no dental work. NEUROMUSCULAR: No numbness/pain of arms, no numbness/pain of legs, no awake with numbness/ pain, + weakness, + muscle aching, no coordination difficulty, + change in walk, no head inj ury, no neck injury, no back injury, + pain in neck, + pain in back, no stroke, no fainting spells, no loss of consciousness, no tremor/shaking, no seizures, no headaches, no migraines , no memory loss, no speech difficulty, no confusion, no numbness of face. PSYCHIATRIC: No depression, no difficulty sleeping, + anxiety, no bipolar disorder. CARDIOVASCULAR/PULMONARY: No heart attack, + heart murmur, no fluttering heart, no shortne ss of breath, no cough, no Tuberculosis, no chest pain, no swelling ankles, no bloody coughi ng, + asthma, + COPD/emphysema. GASTROINTESTINAL: No bowel disease, no nausea/vomiting, no rectal bleeding/hemorroids, + c onstipation, no fecal/stool incontinence, no liver/gallbladder disease, no abdominal pain. KIDNEY DISEASE: No frequent urination, no painful/difficult with urination, + urinary incon tinence, no bladder problems, no impotence, no irregular period, no vaginal discharge. ENDOCRINE: No diabetes, + thyroid disease, + osteoporosis/osteopenia, no drainage from taryn sts. INTEGUMENTARY/SKIN: No lump in breasts, no skin disease or skin changes, no rash/itch. HEMATOLOGIC: No enlarged lymph nodes, no ease or unusual bleeding, no cancer. RHEUMATOLOGIC: + joint pain/arthritis, no Rheumatoid Arthritis PHYSICAL EXAMINATION: Filed Vitals: 11/19/15 1347 BP: 111/68 Pulse: 70 Resp: 16 PainSc: 3 PainLoc: Buttocks Body mass index is 25.24 kg/(m^2). GENERAL: The patient is well developed and well nourished. She does not appear uncomfortab le when seated. HEENT: HEAD/FACE: EYES: EARS: NASOPHARNYX: OROPHARNYX: Normocephalic and atraumatic. There are no areas of recent trauma. Normal sclerae without icterus. No drainage or tenderness. Clear without drainage. Clear without erythema. SKIN Limited skin exam shows no significant rashes or lesions. There are not scars in the lumbar region. CHEST: The patient is in no acute respiratory distress with unlabored respirations. HEART: There is not lower extremity edema. ABDOMEN: The patient is not overweight. NEUROLOGIC: The patient is awake, alert, and oriented to time, place, person. She follows simple and complex commands. Her speech is fluent. She comprehends speech well. She has no apparent deficits with short or alf memory. She has appropriate fund of knowledge Cranial nerves 2-12 appear grossly intact. Sensory exam does not show diminished sensation to light touch in the lower extremities. REFLEX: RIGHT LEFT PATELLAR 2+ 2+ ACHILLES 1+ 1+ MUSCULOSKELETAL There is no major palpable deformity of the spine. Straight leg raise and slump-sit are negative. Rico's maneuver and impingement testing were negative for any groin pain. There was no tenderness to palpation over the greater tr ochanters or sacral sulci. The patient localized the majority of the pain to the gluteal cl eff region. Lumbar facet loading was negative. Strength testing showed 5/5 strength throug hout the lower extremities. The patient was able to heel and toe walk without difficulty. There was no redness, effusion, warmth or joint line tenderness in the knees or ankles. RADIOGRAPHIC REVIEW: The patient's imaging was reviewed in detail with the patient today during the visit. The Lumbar MRI from January 2013 shows levoscoliosis of the upper lumbar spine. There is significant degenerative disc disease with near [id number] articulation of multiple lumbar vertebrae. There is facet arthropathy with hypertrophy causing varying degrees of spinal stenosis rang ing from mild to moderately severe. There is also spondylolisthesis noted at L2-L3. There is also multiple levels of foraminal stenosis that are worse on the left. ASSESSMENT: 1. Bilateral low back pain with sciatica, sciatica laterality unspecified 2. Spinal stenosis of lumbar region 3. Lumbar radiculopathy PLAN: 1. We discussed patients symptoms and lumbar MRI. She appears to be suffering from lumbar spinal stenosis as it's worse at L4-L5 and L5-S1. We discussed steroid injections and she would like to try this, I have ordered bilateral L5/S1 TFESI to be done in the near future. 2. We discussed physical therapy, she has never done the [facility]ice Protocol for spinal steno sis, she would like to learn this, I have sent a rx to [facility] to have this done. 3. She may be a candidate in the future for neuropathic pain medications. 4. She will mail in the post-injection questionnaire and we will call her for follow up. ELECTRONICALLY SIGNED BY: Misty Samaniego PA-C, 11/19/2015 CC: Jamin documented in t his encounter Plan of Treatment +--------+---------+ + + + | Date | Type | Specialty | Care Team | Description | +--------+---------+ + + + | 02/14/ | Office | Cardiology | Jon Koehler, | | | 2019 | Visit | | MD Pooja LEAL | | | | | | [place] | | | | | | [id number] | | | | | | | | +--------+---------+ + + + + + +--------+ + + | Name | Type | Priori | Associated Diagnoses | Order Schedule | | | | ty | | | + + +--------+ + + | * [facility] | Outpatient | Routin | Bilateral low back | Ordered: 11/19/2015 | | Therapy - AMB | Referral | e | pain with sciatica, | | | Referral | | | sciatica laterality | | | | | | unspecified Spinal | | | | | | stenosis of lumbar | | | | | | region Lumbar | | | | | | radiculopathy | | + + +--------+ + + documented as of this encounter Results [facility]IZ Lumbar Transforaminal (12/11/2015 2:45 PM PDT) + + | Specimen | + + | | + + + + + | Narrative | Performed At | + + + | 12/11/2015 Bilateral Transforaminal Epidural Steroid Injections | [facility] | | Diagnosis: Lumbar radiculopathy ICD-10 Code M54.16 Yen | Samy GIN | | Rylee Anmol presents to the fluoroscopy suite for | [facility] | | fluoroscopically-guided bilateral L5-S1 transforaminal epidural | - IMAGING | | steroid injections as part of conservative management for chronic | | | pain with lumbar radiculopathy and degenerative disk disease. After | | | informed consent was obtained, the patient lay in the prone position | | | on the fluoroscopy table. The areas were identified under | | | fluoroscopic guidance. The areas were prepped and draped in sterile | | | fashion. A 25-gauge, 1.5-inch needle was inserted into each region | | | and approximately 3 mL of buffered 1% lidocaine was infused. Then, a | | | 22-gauge spinal needle was inserted into the posterior superior | | | transforaminal space bilaterally and advanced into the epidural | | | space under fluoroscopic guidance. Confirmation into the epidural | | | space was obtained with infusion of approximately 1 mL of Omnipaque | | | contrast which showed epidural flow as well as nerve sheath flow. | | | Then, a combination of 2 mL of 1% lidocaine and 2 mL of 6 mg/mL | | | Celestone was infused, divided between the two sides. The patient | | | tolerated the procedure well without complications. Pre- and | | | post-procedure blood pressures were stable. The patient was given | | | verbal as well as written follow-up instructions. Prior to the | | | start of the procedure, the following were performed and/or | | | verified, including correct patient identity, correct site/side marked | | | and visible, agreement on the procedure to be done, correct patient | | | positioning and an accurate procedure consent form. Any safety | | | precautions based on clinical history and/or medication use have | | | been addressed. I personally performed the procedure above. | | | Estimated blood loss: Minimal Complications: None Findings: As | | | expected Anesthesia: Local 1% Lidocaine | | + + + + + + + + | Performing | Address | City/State/Zipcode | Phone Number | | Organization | | | | + + + + + | [facility] | [address] | [place] | [phone] | | [facility] | | [address] | | | - IMAGING | | | | + + + + + documented in this encounter Visit Diagnoses + + | Diagnosis | + + | Bilateral low back pain with sciatica, sciatica laterality unspecified - Primary | + + | Spinal stenosis of lumbar region Spinal stenosis, lumbar region, without neurogenic | | claudication | + + | Lumbar radiculopathy Thoracic or lumbosacral neuritis or radiculitis, unspecified | + + documented in this encounter
--- OUTSIDE RECORDS SUMMARY | ~2020-01-11 | XMS | Encounter Summary ---
Demographics + + + | Address | [address] | | | [place] [address] | + + + | Home Phone | | + + + | Preferred Language | Unknown | + + + | Marital Status | | + + + | Protestant Affiliation | Unknown | + + + | Race | Unknown | + + + | Ethnic Group | Unknown | + + + Author + + + | Author | [facility] | | | and [place] | + + + | Organization | [facility] | | | and [place] | + + + | Address | Unknown | + + + | Phone | Unavailable | + + + Support + + + + + | Name | Relationship | Address | Phone | + + + + + | Alejandro Corea | ECON | [address] | | | | | [place] [address] | | + + + + + Care Team Providers + +------+ + | Care Die Designer Apprentice Name | Role | Phone | + +------+ + | Avel Neville MD | PCP | | + +------+ + Reason for Visit +---------+ + | Reason | Comments | +---------+ + | Post Op | vein stripping | +---------+ + Encounter Details +--------+---------+ + + + | Date | Type | Department | Care Team | Description | +--------+---------+ + + + | 01/10/ | Office | [facility] | Jignesh Benjamin | Varicose veins of | | 2013 | Visit | SURGERY [address] | MD Chanelle, FACS [address] | lower extremities | | | | [place], [place] | [address] [place] | with other | | | | [address] | [place] [address] | complications | | | | [phone] | [phone] | (Primary Dx) | | | | [...] + + + | Blood Pressure | 110/64 | 01/10/2014 9:37 AM | | | | | PDT [...] + + + + | Weight | 65.3 kg (144 lb) | 01/10/2014 9:37 AM | | | | | PDT | | + + + + + | Height | 166.4 cm (5' 5.5") | 01/10/2014 9:37 AM | | | | | PDT | | + + + + + | Body Mass Index | 23.6 | 01/10/2014 9:37 AM | | | | | PDT | | + + + + + documented in this encounter Progress Notes Jignesh Benjamin MD - 01/10/2014 9:38 AM PDT Patient Identification: Yen Corea 1940 Is a 73 y.o. female , a patient o lucía Neville. Patient is here alone . S: Date of surgery 01/04/2014 . Title of surgery : Bilateral microvenectomy . Physician notes: Patient with mild pain after procedure. She was able to keep the dressings in place. Past Medical History She has a past medical history of Asthma; Allergic rhinitis; Sprained ankle; Fractured nose ; BRONCHITIS, OBSTRUCTIVE CHRONIC; and Osteopenia. Past Surgical History She Past Surgical History Procedure Date Anastacio and bso Appendectomy Thyroidectomy Tonsillectomy Microvenectomy 01/04/2014 Bilateral legs Allergies Allergen Reactions Amoxicillin Oxycodone Medications: She has a current medication list which includes the following prescription(s): advair disk us, proair hfa, thyroid, buspirone, oomrlru-tznmfzmzf-ened, caltrate 600+d, cholecalciferol, chad, fluticasone, atrovent hfa, acidophilus, levothyroxine, levothyroxine, claritin, mult ivitamin, omeprazole, potassium chloride, theophylline, triamterene-hydrochlorothiazide, and accolate. Outpatient Encounter Prescriptions as of 01/10/2014 Medication Sig Dispense Refill ADVAIR DISKUS 250-50 MCG/DOSE diskus inhaler inhale 1 dose by mouth twice a day 60 eac h 11 albuterol (PROAIR HFA) 90 mcg/puff inhaler 2 puffs every 4 hours as needed for shortnes s of breath ARMOUR THYROID PO Take 1 tablet by mouth Daily. busPIRone (BUSPAR) 10 MG tablet Take 5 mg by mouth every morning. YCXRXON-XPTIFINFQ-YDJF PO TABS. 2 tablets by mouth daily calcium-vitamin D (CALTRATE 600+D) 600-400 MG-UNIT TABS 2 tablets by mouth daily Cholecalciferol (VITAMIN D3 PO) CAPS. 2 capsules by mouth daily estradiol (CHAD) 0.05 mg/24 hr One tablet by mouth daily fluticasone (FLONASE) 50 mcg/nasal spray instill 2 sprays into each nostril once daily 16 g 11 ipratropium (ATROVENT HFA) 17 mcg/puff inhaler 2 puffs inhaled every 4 hours as needed for shortness of breath Lactobacillus (ACIDOPHILUS) TABS 4 tablets by mouth daily levothyroxine (LEVOXYL) 112 mcg tablet Take 112 mcg by mouth Every other day. levothyroxine (LEVOXYL) 125 mcg tablet Take 125 mcg by mouth Every other day. loratadine (CLARITIN) 10 mg tablet Take 10 mg by mouth Daily. multivitamin (THERAGRAN) per tablet 1 tablet by mouth daily omeprazole (PRILOSEC) 20 mg capsule Take 20 mg by mouth every morning (before breakfast ). potassium chloride (KLOR-CON) 10 mEq CR tablet Take 20 mEq by mouth 2 times daily. theophylline (THEOPHYLLINE) 300 mg 12 hr tablet Take 300 mg by mouth 2 times daily. triamterene-hydrochlorothiazide (MAXZIDE) 75-50 mg per tablet Take 75-50 mg by mouth as needed. zafirlukast (ACCOLATE) 20 mg tablet Take 20 mg by mouth 2 times daily. Family History: Her family history includes Allergies in her father; Colon cancer in an unspecified family member; and Coronary artery disease in her father. Social History: She reports that she has quit smoking. Her smoking use included Cigarettes. She has a 20 pa ck-year smoking history. She does not have any smokeless tobacco history on file. PE: Lower extremities: Incisions clean and dry. All sutures removed and wounds were Steri-St ripped. A: Good recovery status post microvenectomy bilateral. P: Wear compression wraps in any leg swelling. Return in 4-5 months for possible injection sclerotherapy. Jignesh Benjamin MD, FACS Vascular and General Surgery documented in this encounter Plan of Treatment +--------+---------+ + + + | Date | Type | Specialty | Care Team | Description | +--------+---------+ + + + | 02/14/ | Office | Cardiology | Jon [address], | | | 2019 | Visit | | MD [address] | | | | | | [place] | | | | | | [address] | | | | | | | | +--------+---------+ + + + documented as of this encounter Visit Diagnoses + + | Diagnosis | + + | Varicose veins of lower extremities with other complications - Primary | + + documented in this encounter
--- OUTSIDE RECORDS SUMMARY | ~2020-01-11 | XMS | Encounter Summary ---
Demographics + + + | Address | [address] | | | [place] [address] | + + + | Home Phone | | + + + | Preferred Language | Unknown | + + + | Marital Status | | + + + | Voodoo Affiliation | Unknown | + + + | Race | Unknown | + + + | Ethnic Group | Unknown | + + + Author + + + | Author | [facility] | | | and [place] | + + + | Organization | [facility] | | | and [place] | + + + | Address | Unknown | + + + | Phone | Unavailable | + + + Support + + + + + | Name | Relationship | Address | Phone | + + + + + | Alejandro Corea | ECON | [address] | | | | | [place] [address] | | + + + + + Care Team Providers + +------+ + | Care Monorail Car Operator Name | Role | Phone | + +------+ + | Avel Neville MD | PCP | | + +------+ + Reason for Visit + + + | Reason | Comments | + + + | Procedure | | + + + Encounter Details +--------+ + + + + | Date | Type | Department | Care Team | Description | +--------+ + + + + | 09/07/ | Telephone | [facility] | Jignesh Benjamin | Procedure | | 2012 | | SURGERY [address] | MD Chanelle, FACS [address] | | | | | [place], [place] | [address] [facility] | | | | | [address] | [place] [address] | | | | | [phone] | [phone] | | | | | | | | +--------+ + + + [...] | | | | | [place] | | | | | | [address] | | | | | | | | +--------+---------+ + + + documented as of this encounter Visit Diagnoses Not on filedocumented in this encounter"
--- OUTSIDE RECORDS SUMMARY | ~2020-01-11 | XMS | Encounter Summary ---
Demographics + + + | Address | [address] | | | [place] [address] | + + + | Home Phone | | + + + | Preferred Language | Unknown | + + + | Marital Status | | + + + | Gnosticism Affiliation | Unknown | + + + | Race | Unknown | + + + | Ethnic Group | Unknown | + + + Author + + + | Author | [facility] | | | and [place] | + + + | Organization | [facility] | | | and [place] | + + + | Address | Unknown | + + + | Phone | Unavailable | + + + Support + + + + + | Name | Relationship | Address | Phone | + + + + + | Alejandro Corea | ECON | [address] | | | | | [place] [address] | | + + + + + Care Team Providers + +------+ + | Care Passenger Conductor Name | Role | Phone | + +------+ + | Mynor Vogt MD | PCP | | + +------+ + Reason for Visit + + + | Reason | Comments | + + + | Medication Refill | | + + + Encounter Details +--------+--------+ + + + | Date | Type | Department | Care Team | Description | +--------+--------+ + + + | 05/31/ | Refill | [facility] [place] | [facility] | Medication Refill | | 2014 | | PULMONARY [address] | [address] | | | | | [place], | [place], [place] | | | | | [place] [address] | [address] | | | | | [phone] | | | +--------+--------+ + + + Social History + + [...] | | | | | [place], [place] | | | | | | [address] | | | | | | | | +--------+---------+ + + + documented as of this encounter Visit Diagnoses Not on filedocumented in this encounter"
--- OUTSIDE RECORDS SUMMARY | ~2020-01-11 | XMS | Encounter Summary ---
Demographics + + + | Address | [address] | | | [place] [address] | + + + | Home Phone | | + + + | Preferred Language | Unknown | + + + | Marital Status | | + + + | Yarsani Affiliation | Unknown | + + + | Race | Unknown | + + + | Ethnic Group | Unknown | + + + Author + + + | Author | [facility] | | | and [place] | + + + | Organization | [facility] | | | and [place] | + + + | Address | Unknown | + + + | Phone | Unavailable | + + + Support + + + + + | Name | Relationship | Address | Phone | + + + + + | Alejandro Corea | ECON | [address] | | | | | [place] [address] | | + + + + + Care Team Providers + +------+ + | Care Manager Credit Collections Name | Role | Phone | + [...] | | | | | Lumbar | [address] | [place], [place] | | | | | spinal | [place], | [address] Phone: | | | | | stenosis | [place] [address] | [phone] | | | | | Lumbar | Phone: | Fax: | | | | | foraminal | [phone] | [phone] | | | | | stenosis | Fax: | | | | | | Lumbar | [phone] | | | | | | radiculopath | | | | | | | y | | | +--------+ + + + + + Reason for Visit + + + | Reason | Comments | + + + | New Patient | Back pain | + + + Evaluate & Treat (Routine) +--------+--------+ + + + + | Status | Reason | Specialty | Diagnoses / | Referred By | Referred To | | | | | Procedures | Contact | Contact | +--------+--------+ + + + + | Closed | | Neurosurgery | Diagnoses | Jamin, | Chandra, | | | | | | Avel | Alex Rosales DO | | | | | Radiculopath | MD Caleb | [address] | | | | | y, | [address] | [address] | | | | | lumbosacral | [place] | [place] | | | | | region | [address] | [address] Phone: | | | | | Procedures | Shai, | [phone] | | | | | [place] OFFICE | [place] | Fax: | | | | | CONSULTATION | [address] | [phone] | | | | | NEW/ESTAB | Phone: | | | | | | PATIENT 60 | [phone] | | | | | | MIN | Fax: | | | | | | | [phone] | | +--------+--------+ + + + + Encounter Details +--------+---------+ + + + | Date | Type | Department | Care Team | Description | +--------+---------+ + + + | 10/05/ | Office | [facility] [place] | Rene Reed Joan, | Acquired | | 2015 | Visit | NEUROSURGERY [address] | PA-C [address] | spondylolisthesis | | | | [address] | [address] [place] | (Primary Dx); Lumbar | | | | [place], [place] | [place] [address] | spinal stenosis; | | | | [address] | [phone] | Lumbar foraminal | | | | [phone] | | stenosis; Lumbar | | | | | | radiculopathy | +--------+---------+ + + + Social History + + + +--------+ + | Tobacco Use | Types | Packs/Day | Years | Date | | | | | Used | | + + + +--------+ + | Former Smoker | Cigarettes | 0.7 | 30 | Quit: 09/04/1990 | + + + +--------+ + + [...] + + + | Blood Pressure | 109/64 | 10/05/2015 9:49 AM | | | | | PST | | + + + + + | Pulse | 62 | 10/05/2015 9:49 AM | | | | | PST | | + + + + + | Temperature | - | - | | + + + + + | Respiratory Rate | 16 | 10/05/2015 9:49 AM | | | | | PST | | + + + + + | Oxygen Saturation | - | - | | + + + + + | Inhaled Oxygen | - | - | | | Concentration | | | | + + + + + | Weight | 65.8 kg (145 lb) | 10/05/2015 9:49 AM | | | | | PST | | + + + + + | Height | 167.6 cm (5' 6") | 10/05/2015 9:49 AM | | | | | PST | | + + + + + | Body Mass Index | 23.4 | 10/05/2015 9:49 AM | | | | | PST | | + + + + + documented in this encounter Patient Instructions Patient Instructions Rene Reed PA - 10/05/2015 10:54 AM PSTI would encourage you t o continue and do walking as you have done. This is extremely good for your core and will m inimize how rapidly your back deteriorates. In the meantime, I am sending you to Dr. Itzel nelson to establish care. He will help you maximize nonsurgical treatment options. If you're symptoms progress and her pain becomes more severe I would be happy to see you to consider surgery if you have failed conservative treatment with Dr. Fernandez. documented in this encounter Progress Notes Tsering Smith, Database Operator - 10/05/2015 10:09 AM PST RENEA Yost [address] [facility], [address] [place] [address] FAX: NEUROSURGERY HISTORY AND PHYSICAL EXAMINATION CHIEF COMPLAINT: Chief Complaint Patient presents with New Patient Back pain HISTORY OF PRESENT ILLNESS: The patient is a 75 y.o. female with the complaint of back mateo n symptoms that began 40 years ago. However, it wasn't until November 2014 the patient experie nced severe back pain and severe bilateral leg pain. Since then her symptoms have improved significantly. The patient now describes mild to moderate back pain. Her worst pain occurs in the certified cytotechnologist when she first gets up and rates her pain as a 5-6 out of 10. Once th e patient goes to work her pain is down to about a 2 out of 10 and remains there until 2 in the afternoon. After this her back pretty typically will worsen to about a 5 out of 10. Th e pain she has in her back is constant with varying degrees of severity. Usually her pain i s described as an ache on occasion she can have sharp twinges of pain that come on unexpecte dly. Patient denies any weakness in her legs. Patient states she has no limitation in how far she can walk. As a matter of fact, 2 years ago patient ran a 26 mile marathon at the ag e of 73. Patient's symptoms are aggravated I sitting and relieved by walking. The pain reymundo t she has in her back on occasion it will radiate into her buttocks. Rarely does it radiate below her buttocks. Patient denies any trouble with balance or coordination. Patient has tried physical therapy, massage, TENS units, anti-inflammatories and muscle rel axers. All of these have given her partial temporary relief. She has not had any injection s up to this point time. PAST MEDICAL HISTORY: Past Medical History Diagnosis [...] of results Heart beat abnormality Anxiety Osteoporosis PAST SURGICAL HISTORY: Past Surgical History Procedure Laterality Date Anastacio and bso 1979 Appendectomy Thyroidectomy 1999 Tonsillectomy Micro venectomy Bilateral 01/04/2014 legs Breast cyst excision Total knee arthroplasty 01/2015 [facility] CURRENT MEDICATIONS: Current Outpatient Prescriptions Medication [...] Take 5 mg by mouth every morning. WJAXFIO-[id number]-NLPW PO TABS. 2 tablets by mouth daily [...] 112 mcg by mouth Every other day. loratadine (CLARITIN) 10 mg tablet Take 10 mg by mouth Daily. montelukast (SINGULAIR) 10 mg tablet Take 1 [...] mg/5 mL syrup Take 5-[address] [facility] 4 times daily as needed for Cough. [...] patient reports that she quit smoking about 25 years ago. Her smoking use included Cig [...] Maternal Grandfather Cancer Maternal Grandmother REVIEW OF SYSTEMS GENERALLY: + fever, + night sweats, + anemia, + fatigue, + recent profound weight changes . EYES: + eye problems, no use of corrective lenses, + eye injury, no double vision, no blin dness. EARS, NOSE, AND THROAT: No changes in taste or smell, no hearing difficulty, no ringing in the ears, no ear drainage, no dizziness, + voice changes, no difficulty swallowing, no sign ificant snoring, no sleep apnea, + sinus problems, + major dental work. NEUROLOGICALLY: Please see the review of systems discussed above in the history of present illness. In addition, the patient has numbness/pain of legs, weakness, muscle aching, pain in back. PSYCHIATRIC: No depression, no sleep disorders, + anxiety, no bipolar disorder, no psychot ic episodes. CARDIOVASCULAR: No heart attacks, no heart murmur, no heart fluttering, no chest pain, + a nkle swelling. LUNG DISEASE: No shortness of breath, + cough, no tuberculosis, +bloody cough, + asthma, + emphysema/COPD. GASTROINTESTINAL: No bowel disease, no nausea or vomiting, no rectal bleeding, + constipat ion, no stool incontinence, no liver disease, no gallbladder disease, no abdominal pain, no ulcers. KIDNEY DISEASE: No urinary frequency, no painful or difficult urination, + incontinence, v aginal discharge. ENDOCRINE: No diabetes, + thyroid disease, + osteopenia or no osteoporosis, no breast drai nage. SKIN: + breast lumps, no skin changes, no rashes, no itches. HEMATOLOGIC/LYMPHATIC: No enlarged lymph nodes, no easy or unusual bleeding, no personal h istory of cancer. RHEUMATOLOGIC: + joint arthritis, no rheumatoid arthritis. PHYSICAL EXAMINATION: Blood pressure 109/64, pulse 62, resp. rate 16, height 1.676 m (5' 6"), weight 65.772 kg (1 45 lb). Body mass index is 23.41 kg/(m^2). GENERAL: Yen Corea is in no acute distress with unlabored respirations. The yared ent does not appear uncomfortable throughout the exam today. HEENT: Head: Normocephalic/atraumatic with no areas of recent trauma. Eyes: Normal sclerae without icterus. Ears: No drainage or tenderness. Nasopharnyx: Clear without drainage. Oropharnyx: Clear without erythema. NECK (ANTERIOR): Supple and without palpable masses. CHEST: Clear to ausculation without crackles or wheeze. HEART: Regular rate and rhythm without murmurs. ABDOMEN: Soft, non-tender, non-distended, and without palpable masses. The patient is not o bese. SPINE: There is no tenderness of there cervical or thoracic spine. The lumbar spine shows there is no tenderness in the midline of the L1, L2, L3, L4, L5, S1 levels. To palpation, there is no significant myofascial tenderness. There is no significant pain to provacative testing of the SI joint. There is no major deformity noted. EXTREMITIES: No cyanosis, clubbing, or edema. Distal pulses are palpable. NEUROLOGICAL EXAM: MENTAL STATUS: The patient is awake, alert, and oriented. She follows simple and complex commands. Her speech is fluent, she comprehends speech well, and she repeats well. She has no apparent deficits with short or watermelon harvesting supervisor memory. CRANIAL NERVES: II: Acuity is intact. Fernandes are full to confrontation. III, IV, : The pupils are reactive. Extraocular movements are intact. No ptosis is note d. V: Facial sensation is intact and symmetric. VII: Facial movements are symmetric. VIII: Hearing is intact bilaterally. IX, X: The uvula and palate move appropriately. XI: Shrug is equal bilaterally. XII: Tongue protrusion is midline. MOTOR EXAM: (5 IS NORMAL) * Indicates pain limited MUSCLE/ MOVEMENT: RIGHT LEFT Deltoids 5 5 Biceps 5 5 Triceps 5 5 Wrist Flexion 5 5 Wrist Extension 5 5 Median Intrinsics 5 5 Ulnar Intrinsics 5 5 Publications Sales Representative Strength 5 5 Hip Flexion 5 5 Hip Extension 5 5 Knee Flexion 5 5 Knee Extension 5 5 Dorsiflexion 5 5 Extensor Hallicus Longus 5 5 Plantarflexion 5 5 SENSORY EXAM: Sensory exam shows diminished sensation to light touch through the left lower extremity . REFLEXES: (2 OR 2+ IS NORMAL) REFLEX: RIGHT LEFT BICEPS 2+ 2+ BRACHIORADIALIS 2+ 2+ TRICEPS 2+ 2+ PATELLAR 1+ 1+ ACHILLES 1+ 1+ RANGEL'S ABSENT ABSENT PLANTAR DOWNGOING DOWNGOING GAIT: Gait is steady. PERIPHERAL NERVE/MISC: Tinel is negative at the wrists and elbows bilaterally. Phalen is negative. Straight leg raise is negative bilaterally. Rico's test of the hips is negative bilaterally. TEST AND RADIOGRAPHIC REVIEW: The patient's imaging was reviewed in detail with the patient today during the visit. The MRI from January 2013 shows levoscoliosis of the upper lumbar spine. There is significant degen erative disc disease with near jhdj-fj-ebrl articulation of multiple lumbar vertebrae. Ther e is facet arthropathy with hypertrophy causing varying degrees of spinal stenosis ranging f rom mild to moderately severe. There is also spondylolisthesis noted at L2-L3. There is al so multiple levels of foraminal stenosis that are worse on the left. Lumbar x-rays show spondylolisthesis at L2-L3 on flexion extension views. There is also si gnificant degenerative disc disease with near croa-kb-bevs articulation of the endplates at multiple vertebral bodies. ASSESSMENT: NEUROSURGICAL DIAGNOSES: Encounter Diagnoses Name Primary? Acquired spondylolisthesis Yes Lumbar spinal stenosis Lumbar foraminal stenosis Lumbar radiculopathy GENERAL DIAGNOSES: Past Medical History Diagnosis Date Asthma Allergic rhinitis Fractured nose Osteopenia COPD (chronic obstructive pulmonary disease) ([facility]) Constipation, chronic Hyperlipidemia Hypothermia due to [...] of results Heart beat abnormality Anxiety Osteoporosis PLAN: This pleasure meeting with wrist today discussing her neurosurgical concerns and her back p athology. The patient's MRI and plain x-rays are somewhat impressive. However, they seem t o be minimally affecting her quality of life at this time. She is coping very well and has not been limited in her activities of daily living since her leg is so much better in February. I do not think that she is a good surgical candidate at this time since there is very littl e to gain. I do feel that it is appropriate for her to establish care with physiatry and alem krueger nonsurgical options. For this, I have sent her to see Dr. Fernandez. If, in the fu ture, or back and leg symptoms return and do not respond to conservative treatment and be navarro ppy to meet with her again and discuss appropriate surgical options at that time. ELECTRONICALLY SIGNED BY: RENEA Yost, 10/05/2015 11:10 documented in this encounter Plan of Treatment +--------+---------+ + + + | Date | Type | Specialty | Care Team | Description | +--------+---------+ + + + | 02/14/ | Office | Cardiology | Jon Koehler, | | | 2019 | Visit | | MD Pooja LEAL | | | | | | [facility] [place] | | | | | | [address] | | | | | | | | +--------+---------+ + + + + + +--------+ + + | Name | Type | Priori | Associated Diagnoses | Order Schedule | | | | ty | | | + + +--------+ + + | Ambulatory referral | Outpatient | Routin | Acquired | Ordered: 10/05/2015 | | to Physical Medicine | Referral | e | spondylolisthesis | | | Rehab | | | Lumbar spinal | | | | | | stenosis Lumbar | | | | | | foraminal stenosis | | | | | | Lumbar radiculopathy | | + + +--------+ + + documented as of this encounter Visit Diagnoses + + | Diagnosis | + + | Acquired spondylolisthesis - Primary | + + | Lumbar spinal stenosis Spinal stenosis, lumbar region, without neurogenic | | claudication | + + | Lumbar foraminal stenosis Spinal stenosis, lumbar region, without neurogenic | | claudication | + + | Lumbar radiculopathy Thoracic or lumbosacral neuritis or radiculitis, unspecified | + + documented in this encounter
--- OUTSIDE RECORDS SUMMARY | ~2020-01-11 | XMS | Encounter Summary ---
Demographics + + + | Address | [address] | | | [place] [address] | + + + | Home Phone | | + + + | Preferred Language | Unknown | + + + | Marital Status | | + + + | Gnosticist Affiliation | Unknown | + + + | Race | Unknown | + + + | Ethnic Group | Unknown | + + + Author + + + | Author | [facility] | | | and [place] | + + + | Organization | [facility] | | | and [place] | + + + | Address | Unknown | + + + | Phone | Unavailable | + + + Support + + + + + | Name | Relationship | Address | Phone | + + + + + | Alejandro Corea | ECON | [address] | | | | | [place] [address] | | + + + + + Care Team Providers + +------+ + | Care Inspector Toys Name | Role | Phone | + +------+ + | Avel Neville MD | PCP | | + +------+ + Reason for Visit + + + | Reason | Comments | + + + | Follow-up | | + + + Encounter Details +--------+---------+ + + + | Date | Type | Department | Care Team | Description | +--------+---------+ + + + | 06/08/ | Office | [facility] | [place] | Asthma, intrinsic, | | 2013 | Visit | PULMONARY [address] | MD Eunice CHE | uncomplicated | | | | [place], | [facility], [place] | (Primary Dx); | | | | [place] [phone] | [address] | Allergic rhinitis | | | | [phone] | | due to pollen; | | | | | | Hoarseness of voice | +--------+---------+ + + + Social History [...] + + + | Blood Pressure | 106/62 | 06/08/2014 9:13 AM | | | | | PDT | | + + + + + | Pulse | 63 | 06/08/2014 9:13 AM | | | | | PDT | | + + + + + | Temperature | - | - | | + + + + + | Respiratory Rate | - | - | | + + + + + | Oxygen Saturation | 97% | 06/08/2014 9:13 AM | | | | | PDT | | + + + + + | Inhaled Oxygen | - | - | | | Concentration | | | | + + + + + | Weight | 64.5 kg (142 lb 3.2 | 06/08/2014 9:13 AM | | | | oz) | PDT | | + + + + + | Height | 166.4 cm (5' 5.5") | 06/08/2014 9:13 AM | | | | | PDT | | + + + + + | Body Mass Index | 23.3 | 06/08/2014 9:13 AM | | | | | PDT | | + + + + + documented in this encounter Patient Instructions Patient Instructions Perry Nuñez MD - 06/08/2014 9:31 AM PDTGreat job getting yo ur flu shot already. Continue your Advair and theophylline as you are. Try montelukast (Singulair) In place of Accolate. You only need to take it once daily. You may continue loratidine daily. Use Atrovent inhaler if needed. You could also use albuterol inhaler. Keep up the good work. documented in this encounter Progress Notes Perry Nuñez MD - 06/08/2014 9:44 AM PDTFormatting of this note might be differen t from the original. Perry Nuñez MD [facility] [address] [place] [address] 06/08/2014 Yen Corea 1940 History Yen Corea is a 73 y.o. female followed for asthma and chronic bronchitis, since . When first seen she did have some atypical chest pain as well. She does have a past his tory of smoking that may also have contributed to her chronic airway disease. When first see n, her inhaled steroid dose was increased and later she was placed on Advair and she noted s ignificant improvement in her respiratory symptoms. At present she is using short acting bro nchodilators very infrequently. In the past we did try to reduce her Advair to the lowest st rength, but she gradually had increased symptoms requiring a return to the medium strength. She has had a relatively good year, regarding her asthma. She only recalls using a relieve r inhaler a couple times the past year. At present, her reliever is Atrovent, but she has u sed albuterol in the past as well. Cost of medications are an issue. She asks about an alte rnative to Accolate, which now costs her over $100 per month. She has had some life stresses. Her recently had a myocardial infarction and was h ospitalized at [facility] for almost 2 weeks. He will be going home soon. She anticipates that she will need a right total knee replacement in the next year. She wa s getting steroid shots but they are no longer helping with her pain. Her last serious airway exacerbation of which I am aware was in June 2010. She remains v jonas satisfied with her current medication regimen. In addition to taking Advair, she takes t heophylline twice daily, and Claritin daily. She also uses fluticasone nasal spray most of t he time. Pertinent Prior Medical History Her asthma and most often flares in the fall around June. At those times she has found a single injection of Kenalog most helpful. Patient Active Problem List Diagnosis BRONCHITIS, OBSTRUCTIVE CHRONIC ASTHMA, INTRINSIC ALLERGIC RHINITIS DUE TO POLLEN ASTHMA, EXTRINSIC OTHER VOICE AND RESONANCE DISORDERS Hoarseness of voice Varicose veins of lower extremities with other complications Current Outpatient Prescriptions Medication Sig Dispense Refill ADVAIR DISKUS 250-50 MCG/DOSE diskus inhaler inhale 1 dose by mouth twice a day 60 eac h 5 albuterol (PROAIR HFA) 90 mcg/puff inhaler 2 puffs every 4 hours as needed for shortnes s of breath albuterol 2.5 mg/3 mL nebulizer solution Take 2.5 mg by nebulization every 6 hours as n eeded. ALPRAZolam (XANAX) 0.5 mg tablet Take 0.5 mg by mouth Daily. ARMOUR THYROID PO Take 1 tablet by mouth Daily. busPIRone (BUSPAR) 10 MG tablet Take 5 mg by mouth every morning. BJAZJVN-QTYMBLQZZ-VHME PO TABS. 2 tablets by mouth daily calcium-vitamin D (CALTRATE 600+D) 600-400 MG-UNIT TABS 2 tablets by mouth daily Cholecalciferol (VITAMIN D3 PO) CAPS. 2 capsules by mouth daily estradiol (CHAD) 0.05 mg/24 hr One tablet by mouth daily estrogens, conjugated, (PREMARIN) 0.3 mg tablet Take 0.3 mg by mouth Daily. fluticasone (FLONASE) 50 mcg/nasal spray instill 2 sprays into each nostril once daily 16 g 11 HYDROcodone-acetaminophen (VICODIN) 5-500 mg per tablet Take [...] tablet by mouth Daily. 30 tablet 11 multivitamin (THERAGRAN) per tablet 1 tablet by [...] Take 75-50 mg by mouth as needed. Current Facility-Administered Medications Medication Dose Route Frequency Provider Last Rate Last Dose lidocaine-prilocaine (EMLA) cream Topical PRN Jignesh Benjamin MD Allergies Allergen Reactions Amoxicillin Hives Past Medical History was reviewed and updated in the electronic record. Review of Systems Right knee pain is most significant. She has not been having edema if she is not standing all day. Physical Examination: BP 106/62 | Pulse 63 | Ht 1.664 m (5' 5.5") | Wt 64.501 kg (142 lb 3.2 oz) | BMI 23.29 kg/m 2 | SpO2 97% General: Pleasant middle-aged woman looking younger than chronologic age. Voice mildly hoar se. HEENT: Oropharynx clear. No thrush. Neck: No adenopathy. Lungs: Normal resonance to percussion. Breath sounds clear bilaterally without wheezes, woodworking craftsman ckles, rhonchi. Heart: Regular rate and rhythm. Extremities: No clubbing, cyanosis, or edema. Skin: No rash or eczema. Assessment: 1. Asthma, intrinsic, uncomplicated She may also have a slight component of chronic bronchitis related to her 15 to 20 year smo jacobo history. She has done very well the past year. She remains on medium strength Advair, a lthough is frequently only using one puff daily. She did not tolerate earlier attempts to re duce to low strength Advair. She has had cataract surgery in the past but has no other obvio us manifestations of steroid exposure. She continues to find theophylline beneficial. She navarro s already obtained a flu vaccine for the coming season. She remains very active. 2. Allergic rhinitis due to pollen She remains on Claritin, Accolate, and fluticasone nasal spray. Her symptoms are reasonably controlled. Largely for cost considerations, she will try montelukast in place of Accolate . 3. Hoarseness of voice She often developed hoarseness in response to exposure to allergens or dust. Dr. Montaño has previously performed laryngoscopy which has shown only some swelling of the larynx probably related to allergies. We have noted no significant progression of her hoarseness over the 1 1 years that I have followed her. PLAN: 1. Continue Advair Diskus 250/50 mcg one puff once to twice a day. 2. Discontinue Accolate and she will try montelukast in its place. 3. Continue theophylline 300 mg by mouth twice a day. 4. Continue Atrovent inhaler as needed for reliever. 5. Continue Claritin 10 mg by mouth daily. 6. Continue fluticasone nasal spray 50 mcg 2 sprays in each nostril daily as needed. 7. She was congratulated on obtaining the flu vaccine already this season. 8. Followup in one year or earlier if problems. Perry Nuñez Cc: Boris Neville. Portions of this documentation were transcribed using voice recognition software. Every eff ort has been made to ensure accuracy; however, unintended grammatical and/or spelling errors may be present due to inadvertent computerized turn out worker errors. If there are any ques tions regarding the turn out worker, please contact our office. documented in th is encounter Plan of Treatment +--------+---------+ + + + | Date | Type | Specialty | Care Team | Description | +--------+---------+ + + + | 02/14/ | Office | Cardiology | Jon [place], | | | 2019 | Visit | | MD Pooja LEAL | | | | | | [place] | | | | | | [id number] | | | | | | | | +--------+---------+ + + + documented as of this encounter Visit Diagnoses + + | Diagnosis | + + | Asthma, intrinsic, uncomplicated - Primary | + + | Allergic rhinitis due to pollen | + + | Hoarseness of voice Dysphonia | + + documented in this encounter
--- OUTSIDE RECORDS SUMMARY | ~2020-01-11 | XMS | Encounter Summary ---
Demographics + + + | Address | [address] | | | [place] [address] | + + + | Home Phone | | + + + | Preferred Language | Unknown | + + + | Marital Status | | + + + | Uatsdin Affiliation | Unknown | + + + | Race | Unknown | + + + | Ethnic Group | Unknown | + + + Author + + + | Author | [facility] | | | and [place] | + + + | Organization | [facility] | | | and [place] | + + + | Address | Unknown | + + + | Phone | Unavailable | + + + Support + + + + + | Name | Relationship | Address | Phone | + + + + + | Alejandro Corea | ECON | [address] | | | | | [place] [address] | | + + + + + Care Team Providers + +------+ + | Care Counter Top Maker Name | Role | Phone | + +------+ + | Avel Neville MD | PCP | | + +------+ + Reason for Visit + + + | Reason | Comments | + + + | Dressing Change | | + + + Encounter Details +--------+---------+ + + + | Date | Type | Department | Care Team | Description | +--------+---------+ + + + | 01/06/ | Office | [facility] | Jignesh Benjamin | Varicose vein | | 2013 | Visit | SURGERY [address] | MD Chanelle, FACS [address] | (Primary Dx) | | | | [place], [place] | [address] [facility] | | | | | [address] | [place] [address] | | | | | [phone] | [phone] | | | | | | | [...] + + documented as of this encounter Progress Notes Ines Bullard RN - 01/06/2014 12:31 PM PDTPatient arrived with leg wraps in place. State d her pain has been controlled with Tylenol. Her discomfort has primarily been over the left fonseca. Outer wraps came off easily. Two gauze pads soaked with saline, then removed easily. Sutures all intact but quite tender for patient and slightly red. Did not remove sutures, re-wrapped and instructed patient to leave them in place until Thursday's visit with Dr. Misha soni. Patient verbalized and understanding and stated that it is no problem for her to take s ponge baths until sutures are removed on Thursday. Instructed patient to call if she had any concerns or questions. documented in this encounter Plan of Treatment +--------+---------+ + + + | Date | Type | Specialty | Care Team | Description | +--------+---------+ + + + | 02/14/ | Office | Cardiology | Jon [place], | | | 2019 | Visit | | MD Pooja LEAL | | | | | | [place], [place] | | | | | | [address] | | | | | | | | +--------+---------+ + + + documented as of this encounter Visit Diagnoses + + | Diagnosis | + + | Varicose vein - Primary Asymptomatic varicose veins | + + documented in this encounter"
--- OUTSIDE RECORDS SUMMARY | ~2020-01-11 | XMS | Encounter Summary ---
Demographics + + + | Address | [address] | | | [place] [address] | + + + | Home Phone | | + + + | Preferred Language | Unknown | + + + | Marital Status | | + + + | Sabianist Affiliation | Unknown | + + + | Race | Unknown | + + + | Ethnic Group | Unknown | + + + Author + + + | Author | [facility] | | | and [place] | + + + | Organization | [facility] | | | and [place] | + + + | Address | Unknown | + + + | Phone | Unavailable | + + + Support + + + + + | Name | Relationship | Address | Phone | + + + + + | Alejandro Corea | ECON | [address] | | | | | [place] [address] | | + + + + + Care Team Providers + +------+ + | Care Concaver Name | Role | Phone | + +------+ + | Avel Neville MD | PCP | | + +------+ + Encounter Details +--------+ + + + + | Date | Type | Department | Care Team | Description | +--------+ + + + + | 07/05/ | Abstract | [facility] [place] | [place], | | | 2014 | | PULMONARY [address] | Bela Funez MD | | | | | [place], | | | | | | [place] [id number] | | | | | | [phone] | | | +--------+ + + + [...] | 7 Standard drinks | 7.0 | 1 drink per day | | | or equivalent [...] | | | | | | [place] | | | | | | [id number] | | | | | | | | +--------+---------+ + + + documented as of this encounter Procedures + +--------+ + + + | Procedure Name | Priori | Date/Time | Associated Diagnosis | Comments | | | ty | | | | + +--------+ + + + | EXTERNAL LAB: BUN | Routin | 01/05/2015 | | Results for this | | | e | | | procedure are in the | | | | | | results section. | + +--------+ + + + | EXTERNAL LAB: | Routin | 01/05/2015 | | Results for this | | GLUCOSE | e | | | procedure are in the | | | | | | results section. | + +--------+ + + + | EXTERNAL LAB: ALT | Routin | 01/05/2015 | | Results for this | | | e | | | procedure are in the | | | | | | results section. | + +--------+ + + + | EXTERNAL LAB: AST | Routin | 01/05/2015 | | Results for this | | | e | | | procedure are in the | | | | | | results section. | + +--------+ + + + | EXTERNAL LAB: | Routin | 01/05/2015 | | Results for this | | ALKALINE PHOSPHATASE | e | | | procedure are in the | | | | | | results section. | + +--------+ + + + | EXTERNAL LAB: | Routin | 01/05/2015 | | Results for this | | BILIRUBIN, TOTAL | e | | | procedure are in the | | | | | | results section. | + +--------+ + + + | EXTERNAL LAB: | Routin | 01/05/2015 | | Results for this | | ALBUMIN | e | | | procedure are in the | | | | | | results section. | + +--------+ + + + | EXTERNAL LAB: | Routin | 01/05/2015 | | Results for this | | PROTEIN, TOTAL | e | | | procedure are in the | | | | | | results section. | + +--------+ + + + | EXTERNAL LAB: | Routin | 01/05/2015 | | Results for this | | CALCIUM | e | | | procedure are in the | | | | | | results section. | + +--------+ + + + | EXTERNAL LAB: CARBON | Routin | 01/05/2015 | | Results for this | | DIOXIDE | e | | | procedure are in the | | | | | | results section. | + +--------+ + + + | EXTERNAL LAB: | Routin | 01/05/2015 | | Results for this | | CHLORIDE | e | | | procedure are in the | | | | | | results section. | + +--------+ + + + | EXTERNAL LAB: | Routin | 01/05/2015 | | Results for this | | POTASSIUM | e | | | procedure are in the | | | | | | results section. | + +--------+ + + + | EXTERNAL LAB: SODIUM | Routin | 01/05/2015 | | Results for this | | | e | | | procedure are in the | | | | | | results section. | + +--------+ + + + | EXTERNAL LAB: | Routin | 01/05/2015 | | Results for this | | URINALYSIS | e | | | procedure are in the | | | | | | results section. | + +--------+ + + + | EXTERNAL LAB: CBC | Routin | 01/05/2015 | | Results for this | | | e | | | procedure are in the | | | | | | results section. | + +--------+ + + + | EXTERNAL LAB: TSH | Routin | 01/05/2015 | | Results for this | | | e | | | procedure are in the | | | | | | results section. | + +--------+ + + + | EXTERNAL LAB: EGFR | Routin | 01/05/2015 | | Results for this | | | e | | | procedure are in the | | | | | | results section. | + +--------+ + + + | EXTERNAL LAB: | Routin | 01/05/2015 | | Results for this | | CREATININE | e | | | procedure are in the | | | | | | results section. | + +--------+ + + + | VITAMIN B-12 | Routin | 01/05/2015 | | Results for this | | | e | | | procedure are in the | | | | | | results section. | + +--------+ + + + | URINALYSIS, REFLEX | Routin | 01/05/2015 | | Results for this | | MICROSCOPIC AND/OR | e | | | procedure are in the | | CULTURE | | | | results section. | + +--------+ + + + | SEDIMENTATION RATE | Routin | 01/05/2015 | | Results for this | | | e | | | procedure are in the | | | | | | results section. | + +--------+ + + + | CBC WITH | Routin | 01/05/2015 | | Results for this | | DIFFERENTIAL | e | | | procedure are in the | | | | | | results section. | + +--------+ + + + | T3, FREE | Routin | 01/05/2015 | | Results for this | | | e | | | procedure are in the | | | | | | results section. | + +--------+ + + + | T4, FREE | Routin | 01/05/2015 | | Results for this | | | e | | | procedure are in the | | | | | | results section. | + +--------+ + + + | COMPREHENSIVE | Routin | 01/05/2015 | | Results for this | | METABOLIC PANEL | e | | | procedure are in the | | | | | | results section. | + +--------+ + + + documented in this encounter Results T4, Free (01/05/2015) + +-------+ + + + | Component | Value | Ref Range | Performed | Pathologist | | | | | At | Signature | + +-------+ + + + | FREE T4 | 1.67 | 0.71 1.7 | [facility] | | | (REF) | | | [facility] | | | | | | [facility] | | | | | | CENTER - | | | | | | LABORATORY | | + +-------+ + + + + + | Specimen | + + | Blood specimen | | (specimen) | + + + + + + + | Performing | Address | City/State/Zipcode | Phone Number | | Organization | | | | + + + + + | [facility] | [address] | [place], [place] | [phone] | | [facility] | | [id number] | | | - LABORATORY | | | | + + + + + External Lab: TSH (01/05/2015) + + + + + + | Component | Value | Ref Range | Performed | Pathologist | | | | | At | Signature | + + + + + + | TSH, | 0.133 (A) | 0.27 - 4.2 | EXTERNAL | | | External | | | LAB | | + + + + + + + + | Specimen | + + | Blood specimen | | (specimen) | + + + + | Resulting Agency Comment | + + | [facility] | + + + +---------+ + + | Performing | Address | City/State/Zipcode | Phone Number | | Organization | | | | + +---------+ + + | EXTERNAL LAB | | | | + +---------+ + + Urinalysis, Reflex Microscopic and/or Culture (01/05/2015) + + + + + + | Component | Value | Ref Range | Performed | Pathologist | | | | | At | Signature | + + + + + + | COLLECTION | Clean Catch | | [facility] | | | [facility] | | | [facility] | | | | | | MEDICAL | | | | | | CENTER - | | | | | | LABORATORY | | + + + + + + | Color | Straw | | [facility] | | | | | | [facility] | | | | | | [facility] | | | | | | CENTER - | | | | | | LABORATORY | | + + + + + + | Clarity | Clear | | [facility] | | | | | | [facility] | | | | | | [facility]ICAL | | | | | | CENTER - | | | | | | LABORATORY | | + + + + + + | Bilirubin, | Negative | Negative | [facility] | | | Urine | | | [facility] | | | | | | MEDICAL | | | | | | CENTER - | | | | | | LABORATORY | | + + + + + + | Nitrite, | Negative | Negative | [facility] | | | Urine | | | [facility] | | | | | | MEDICAL | | | | | | CENTER - | | | | | | LABORATORY | | + + + + + + | Urobilinoge | Normal | < 0.2 mg/dL, | [facility] | | | n, Urine | | 1.0 mg/dL, 4.0 | [facility] | | | | | mg/dL, Normal, | MEDICAL | | | | | 1.0 E.U./dL, | CENTER - | | | | | 0.2 E.U./dL, | LABORATORY | | | | | 0.2 mg/dL, | | | | | | Negative, 1 | | | | | | mg/dL, <2.0 | | | | | | mg/dL | | | + + + + + + | CASTS | Negative | | [facility] | | | | | | [facility] | | | | | | MEDICAL | | | | | | CENTER - | | | | | | LABORATORY | | + + + + + + | White Blood | 0-2 | 0 - 2 /HPF | [facility] | | | Cells, | | | [facility] | | | Urine | | | MEDICAL | | | | | | CENTER - | | | | | | LABORATORY | | + + + + + + | Epithelial | 1+Comment: epithelial | 0 1+ | [facility] | | | Cells, | Squamous | | [facility] | | | Fluid | | | MEDICAL | | | | | | CENTER - | | | | | | LABORATORY | | + + + + + + | Bacteria, | 1+ (A) | Negative /HPF | [facility] | | | Urine | | | [facility] | | | | | | MEDICAL | | | | | | CENTER - | | | | | | LABORATORY | | + + + + + + | CRYSTAL UA | 2+ | | [facility] | | | | | | [facility] | | | | | | MEDICAL | | | | | | CENTER - | | | | | | LABORATORY | | + + + + + + + + | Specimen | + + | Urine specimen | | (specimen) | + + + + + + + | Performing | Address | City/State/Zipcode | Phone Number | | Organization | | | | + + + + + | [facility] | [address] | [place] | [phone] | | [facility] | | [address] | | | - LABORATORY | | | | + + + + + Sedimentation Rate (01/05/2015) + +-------+ + + + | Component | Value | Ref Range | Performed | Pathologist | | | | | At | Signature | + +-------+ + + + | Erythrocyte | 20 | 0 - 20 mm/hr | [facility] | | | | | | [facility] | | | Sedimentati | | | MEDICAL | | | on Rate | | | CENTER - | | | | | | LABORATORY | | + +-------+ + + + + + | Specimen | + + | Blood specimen | | (specimen) | + + + + + + + | Performing | Address | City/State/Zipcode | Phone Number | | Organization | | | | + + + + + | [facility] | [address] | [place], [place] | [phone] | | [facility] | | [id number] | | | - LABORATORY | | | | + + + + + CBC with Differential (01/05/2015) + +-------+ + + + | Component | Value | Ref Range | Performed | Pathologist | | | | | At | Signature | + +-------+ + + + | MCH | 30.0 | 26.0 - 33.0 pg | | | + +-------+ + + + | MCHC | 33.0 | 30.0 - 36.0 % | | | + +-------+ + + + | % Basophils | 0.7 | 1.0 % | | | + +-------+ + + + + + | Specimen | + + | Blood specimen | | (specimen) | + + T3, Free (01/05/2015) + +-------+ + + + | Component | Value | Ref Range | Performed | Pathologist | | | | | At | Signature | + +-------+ + + + | T3, Free | 3.52 | 2.5 4.3 | [facility] | | | | | | [facility] | | | | | | MEDICAL | | | | | | CENTER - | | | | | | LABORATORY | | + +-------+ + + + + + | Specimen | + + | Blood specimen | | (specimen) | + + + + + + + | Performing | Address | City/State/Zipcode | Phone Number | | Organization | | | | + + + + + | [facility] | [address] | [place] | [phone] | | [facility] | | [address] | | | - LABORATORY | | | | + + + + + Vitamin B-12 (01/05/2015) + +-------+ + + + | Component | Value | Ref Range | Performed | Pathologist | | | | | At | Signature | + +-------+ + + + | Vitamin B12 | 485.4 | 211 - 946 | | | | Bind | | | | | | Capacity | | | | | + +-------+ + + + + + | Specimen | + + | Blood specimen | | (specimen) | + + Comprehensive Metabolic Panel (01/05/2015) + +-------+ + + + | Component | Value | Ref Range | Performed | Pathologist | | | | | At | Signature | + +-------+ + + + | Anion Gap | 16 | 7 - 21 mmol/L | [facility] | | | | | | [facility] | | | | | | MEDICAL | | | | | | CENTER - | | | | | | LABORATORY | | + +-------+ + + + | Bun/Creatin | 26.9 | 6.0 - 28.6 | [facility] | | | ine | | | [facility] | | | | | | MEDICAL | | | | | | CENTER - | | | | | | LABORATORY | | + +-------+ + + + | Globulin | 2.6 | 1.8 - 3.5 | [facility] | | | | | | [facility] | | | | | | MEDICAL | | | | | | CENTER - | | | | | | LABORATORY | | + +-------+ + + + | Albumin/Susan | 1.5 | 1.1 - 2.4 | [facility] | | | bulin Ratio | | | [facility] | | | | | | MEDICAL | | | | | | CENTER - | | | | | | LABORATORY | | + +-------+ + + + + + | Specimen | + + | Blood specimen | | (specimen) | + + + + + + + | Performing | Address | City/State/Zipcode | Phone Number | | Organization | | | | + + + + + | [facility] | [address] | [place], [place] | [phone] | | [facility] | | [address] | | | - LABORATORY | | | | + + + + + External Lab: LILLI (01/05/2015) + +-------+ + + + | Component | Value | Ref Range | Performed | Pathologist | | | | | At | Signature | + +-------+ + + + | BUN, | 21 | 6 - 23 | EXTERNAL | | | External | | | LAB | | + +-------+ + + + + + | Resulting Agency Comment | + + | [facility] | + + + +---------+ + + | Performing | Address | City/State/Zipcode | Phone Number | | Organization | | | | + +---------+ + + | EXTERNAL LAB | | | | + +---------+ + + External Lab: Glucose (01/05/2015) + +---------+ + + + | Component | Value | Ref Range | Performed | Pathologist | | | | | At | Signature | + +---------+ + + + | Glucose, | 139 (A) | 70 - 100 | EXTERNAL | | | External | | | LAB | | + +---------+ + + + + + | Resulting Agency Comment | + + | [facility] | + + + +---------+ + + | Performing | Address | City/State/Zipcode | Phone Number | | Organization | | | | + +---------+ + + | EXTERNAL LAB | | | | + +---------+ + + External Lab: ALT (01/05/2015) + +-------+ + + + | Component | Value | Ref Range | Performed | Pathologist | | | | | At | Signature | + +-------+ + + + | ALT, | 19 | 7 - 52 | EXTERNAL | | | External | | | LAB | | + +-------+ + + + + + | Resulting Agency Comment | + + | [facility] | + + + +---------+ + + | Performing | Address | City/State/Zipcode | Phone Number | | Organization | | | | + +---------+ + + | EXTERNAL LAB | | | | + +---------+ + + External Lab: AST (01/05/2015) + +-------+ + + + | Component | Value | Ref Range | Performed | Pathologist | | | | | At | Signature | + +-------+ + + + | AST, | 25 | 13 - 39 | EXTERNAL | | | External | | | LAB | | + +-------+ + + + + + | Resulting Agency Comment | + + | [facility] | + + + +---------+ + + | Performing | Address | City/State/Zipcode | Phone Number | | Organization | | | | + +---------+ + + | EXTERNAL LAB | | | | + +---------+ + + External Lab: Alkaline Phosphatase (01/05/2015) + +-------+ + + + | Component | Value | Ref Range | Performed | Pathologist | | | | | At | Signature | + +-------+ + + + | ALP, | 60 | 30 - 128 | EXTERNAL | | | External | | | LAB | | + +-------+ + + + + + | Resulting Agency Comment | + + | [facility] | + + + +---------+ + + | Performing | Address | City/State/Zipcode | Phone Number | | Organization | | | | + +---------+ + + | EXTERNAL LAB | | | | + +---------+ + + External Lab: Bilirubin, Total (01/05/2015) + +-------+ + + + | Component | Value | Ref Range | Performed | Pathologist | | | | | At | Signature | + +-------+ + + + | Bilirubin, | 0.6 | 0 - 1.2 | EXTERNAL | | | Total, | | | LAB | | | External | | | | | + +-------+ + + + + + | Resulting Agency Comment | + + | [facility] | + + + +---------+ + + | Performing | Address | City/State/Zipcode | Phone Number | | Organization | | | | + +---------+ + + | EXTERNAL LAB | | | | + +---------+ + + External Lab: Albumin (01/05/2015) + +-------+ + + + | Component | Value | Ref Range | Performed | Pathologist | | | | | At | Signature | + +-------+ + + + | Albumin, | 3.9 | 3.5 - 5 | EXTERNAL | | | External | | | LAB | | + +-------+ + + + + + | Resulting Agency Comment | + + | [facility] | + + + +---------+ + + | Performing | Address | City/State/Zipcode | Phone Number | | Organization | | | | + +---------+ + + | EXTERNAL LAB | | | | + +---------+ + + External Lab: Protein, Total (01/05/2015) + +-------+ + + + | Component | Value | Ref Range | Performed | Pathologist | | | | | At | Signature | + +-------+ + + + | Protein, | 6.5 | 6 - 8 | EXTERNAL | | | Total, | | | LAB | | | External | | | | | + +-------+ + + + + + | Resulting Agency Comment | + + | [facility] | + + + +---------+ + + | Performing | Address | City/State/Zipcode | Phone Number | | Organization | | | | + +---------+ + + | EXTERNAL LAB | | | | + +---------+ + + External Lab: Calcium (01/05/2015) + +-------+ + + + | Component | Value | Ref Range | Performed | Pathologist | | | | | At | Signature | + +-------+ + + + | Calcium, | 9.5 | 8.4 - 10.2 | EXTERNAL | | | External | | | LAB | | + +-------+ + + + + + | Resulting Agency Comment | + + | [facility] | + + + +---------+ + + | Performing | Address | City/State/Zipcode | Phone Number | | Organization | | | | + +---------+ + + | EXTERNAL LAB | | | | + +---------+ + + External Lab: Carbon Dioxide (01/05/2015) + +-------+ + + + | Component | Value | Ref Range | Performed | Pathologist | | | | | At | Signature | + +-------+ + + + | Carbon | 24 | 19 - 31 | EXTERNAL | | | Dioxide, | | | LAB | | | External | | | | | + +-------+ + + + + + | Resulting Agency Comment | + + | [facility] | + + + +---------+ + + | Performing | Address | City/State/Zipcode | Phone Number | | Organization | | | | + +---------+ + + | EXTERNAL LAB | | | | + +---------+ + + External Lab: Chloride (01/05/2015) + +-------+ + + + | Component | Value | Ref Range | Performed | Pathologist | | | | | At | Signature | + +-------+ + + + | Chloride, | 101 | 95 - 112 | EXTERNAL | | | External | | | LAB | | + +-------+ + + + + + | Resulting Agency Comment | + + | [facility] | + + + +---------+ + + | Performing | Address | City/State/Zipcode | Phone Number | | Organization | | | | + +---------+ + + | EXTERNAL LAB | | | | + +---------+ + + External Lab: Potassium (01/05/2015) + +-------+ + + + | Component | Value | Ref Range | Performed | Pathologist | | | | | At | Signature | + +-------+ + + + | Potassium, | 4.1 | 3.6 - 5.1 | EXTERNAL | | | External | | | LAB | | + +-------+ + + + + + | Resulting Agency Comment | + + | [facility] | + + + +---------+ + + | Performing | Address | City/State/Zipcode | Phone Number | | Organization | | | | + +---------+ + + | EXTERNAL LAB | | | | + +---------+ + + External Lab: Sodium (01/05/2015) + +-------+ + + + | Component | Value | Ref Range | Performed | Pathologist | | | | | At | Signature | + +-------+ + + + | Sodium, | 137 | 132 - 143 | EXTERNAL | | | External | | | LAB | | + +-------+ + + + + + | Resulting Agency Comment | + + | [facility] | + + + +---------+ + + | Performing | Address | City/State/Zipcode | Phone Number | | Organization | | | | + +---------+ + + | EXTERNAL LAB | | | | + +---------+ + + External Lab: Urinalysis (01/05/2015) + + + + + + | Component | Value | Ref Range | Performed | Pathologist | | | | | At | Signature | + + + + + + | UA Blood, | Negative | | EXTERNAL | | | External | | | LAB | | + + + + + + | UA Glucose, | Normal | | EXTERNAL | | | External | | | LAB | | + + + + + + | UA Ketones, | Negative | | EXTERNAL | | | External | | | LAB | | + + + + + + | UA Ph, | 7 | 5 - 9 | EXTERNAL | | | External | | | LAB | | + + + + + + | UA | Negative | | EXTERNAL | | | Proteins, | | | LAB | | | External | | | | | + + + + + + | UA RBC, | 0 | 0 - 4 | EXTERNAL | | | External | | | LAB | | + + + + + + | UA Specific | 1.013 | 1.005 - 1.03 | EXTERNAL | | | [place], | | | LAB | | | External | | | | | + + + + + + | UA | Negative | | EXTERNAL | | | Leukocyte | | | LAB | | | Esterase, | | | | | | External | | | | | + + + + + + + + | Resulting Agency Comment | + + | [facility] | + + + +---------+ + + | Performing | Address | City/State/Zipcode | Phone Number | | Organization | | | | + +---------+ + + | EXTERNAL LAB | | | | + +---------+ + + External Lab: CBC (01/05/2015) + + + + + + | Component | Value | Ref Range | Performed | Pathologist | | | | | At | Signature | + + + + + + | WBC, | 5.3 | 4.5 - 11 | EXTERNAL | | | External | | | LAB | | + + + + + + | HGB, | 12.7 | 12 - 16 | EXTERNAL | | | External | | | LAB | | + + + + + + | HCT, | 38 | 35 - 45 | EXTERNAL | | | External | | | LAB | | + + + + + + | PLT, | 354 | 140 - 440 | EXTERNAL | | | External | | | LAB | | + + + + + + | Neutrophils | 84.4 (A) | 39 - 80 | EXTERNAL | | | %, | | | LAB | | | External | | | | | + + + + + + | Lymphocytes | 13 (A) | 24 - 44 | EXTERNAL | | | %, | | | LAB | | | External | | | | | + + + + + + | Monocytes | 1.7 | 0 - 12 | EXTERNAL | | | %, External | | | LAB | | + + + + + + | Eosinophils | 0.2 | 0 - 6 | EXTERNAL | | | %, | | | LAB | | | External | | | | | + + + + + + | RBC, | 4.20 | 3.8 - 5.1 | EXTERNAL | | | External | | | LAB | | + + + + + + | MCV, | 92 | 81 - 99 | EXTERNAL | | | External | | | LAB | | + + + + + + | RDW, | 14 | 10.5 - 15 | EXTERNAL | | | External | | | LAB | | + + + + + + + + | Resulting Agency Comment | + + | [facility] | + + + +---------+ + + | Performing | Address | City/State/Zipcode | Phone Number | | Organization | | | | + +---------+ + + | EXTERNAL LAB | | | | + +---------+ + + External Lab: eGFR (01/05/2015) + +-------+ + + + | Component | Value | Ref Range | Performed | Pathologist | | | | | At | Signature | + +-------+ + + + | eGFR, | 73 | | EXTERNAL | | | External | | | LAB | | + +-------+ + + + + + | Specimen | + + | Blood specimen | | (specimen) | + + + + | Resulting Agency Comment | + + | [facility] | + + + +---------+ + + | Performing | Address | City/State/Zipcode | Phone Number | | Organization | | | | + +---------+ + + | EXTERNAL LAB | | | | + +---------+ + + External Lab: Creatinine (01/05/2015) + +-------+ + + + | Component | Value | Ref Range | Performed | Pathologist | | | | | At | Signature | + +-------+ + + + | Creatinine, | 0.78 | 0.7 - 1.18 | EXTERNAL | | | External | | | LAB | | + +-------+ + + + + + | Specimen | + + | Blood specimen | | (specimen) | + + + + | Resulting Agency Comment | + + | [facility] | + + + +---------+ + + | Performing | Address | City/State/Zipcode | Phone Number | | Organization | | | | + +---------+ + + | EXTERNAL LAB | | | | + +---------+ + + documented in this encounter Visit Diagnoses Not on filedocumented in this encounter"
--- OUTSIDE RECORDS SUMMARY | ~2020-01-11 | XMS | Encounter Summary ---
Demographics + + + | Address | [address] | | | [place] [address] | + + + | Home Phone | | + + + | Preferred Language | Unknown | + + + | Marital Status | | + + + | Anabaptist Affiliation | Unknown | + + + | Race | Unknown | + + + | Ethnic Group | Unknown | + + + Author + + + | Author | [facility] | | | and [place] | + + + | Organization | [facility] | | | and [place] | + + + | Address | Unknown | + + + | Phone | Unavailable | + + + Support + + + + + | Name | Relationship | Address | Phone | + + + + + | Alejandro Corea | ECON | [address] | | | | | [place] [address] | | + + + + + Care Team Providers + +------+ + | Care Ct Scan Special Procedures Technologist Name | Role | Phone | + +------+ + | Avel Neville MD | PCP | | + +------+ + Reason for Visit + + + | Reason | Comments | + + + | Procedure | bilateral microvenectomy | + + + Surgical (Routine) +--------+ + + + + + | Status | Reason | Specialty | Diagnoses / | Referred By | Referred To | | | | | Procedures | Contact | Contact | +--------+ + + + + + | Closed | Specialty | Surgery / | Diagnoses | Field, | Field, | | | Services | General | Varicose | Jignesh I, | Jignesh I, | | | Required | Surgery | veins of | MD, FACS | MD, FACS [address] | | | | | lower | [address] | [address] | | | | | extremities | [place], | | | | | with other | [place], [place] | [place] [address] | | | | | complication | [id number] | Phone: | | | | | s | Phone: | [phone] | | | | | Procedures | [phone] | Fax: | | | | | NE PHLEB | Fax: | [phone] | | | | | VEINS - | [phone] | | | | | | EXTREM - TO | | | | | | | [address] | | | | | | | INJECTION | | | | | | | THERAPY | | | | | | | VEIN,MULT | | | | | | | VEINS | | | +--------+ + + + + + Encounter Details +--------+ + + + + | Date | Type | Department | Care Team | Description | +--------+ + + + + | 01/04/ | Procedure | [facility] | Jignesh Benjamin | Varicose veins of | | 2013 | visit | SURGERY [address] | MD Chanelle, FACS [address] | lower extremities | | | | [place], [place] | [address] | with other | | | | [address] | [place] [address] | complications | | | | [phone] | [phone] | (Primary Dx) | | | | [...] + + + | Blood Pressure | 120/70 | 01/04/2014 1:04 PM | | | | | PDT | | + + + + + | Pulse | 68 | 01/04/2014 1:04 PM | | | | | PDT | | + + + + + | Temperature | 36.4 C (97.6 F) | 01/04/2014 1:04 PM | | | | | PDT | | + + + + + | Respiratory Rate | 16 | 01/04/2014 1:04 PM | | | | | PDT | | + + + + + | Oxygen Saturation | 99% | 01/04/2014 1:04 PM | | | | | PDT | | + + + + + | Inhaled Oxygen | - | - | | | Concentration | | | | + + + + + | Weight | 65.3 kg (144 lb) | 01/04/2014 1:04 PM | | | | | PDT | | + + + + + | Height | 166.4 cm (5' 5.5") | 01/04/2014 1:04 PM | | | | | PDT | | + + + + + | Body Mass Index | 23.6 | 01/04/2014 1:04 PM | | | | | PDT | | + + + + + documented in this encounter Patient Instructions Patient Instructions Jignesh Benjamin MD - 01/04/2014 3:17 PM PDT VARICOSE VEIN TREATMENT Microvenectomy POST-OPERATIVE INSTRUCTIONS 1. You will have an Dinh wrap in place when you leave the office. 2. Following this procedure, keep your leg elevated above the level of your heart. It is g ood to be up walking as needed. Avoid prolonged sitting still or standing. You should be up walking HOURLY during the day for the first 5 days following the procedure. No vigorous ex ercise for 1 week. 3. Sponge baths only for the first 2 days NO shower until after the Dinh wrap is removed. 4. If pain medication is needed, you may take Tylenol (acetaminophen), Motrin, Advil, Ibup rofen, Aleve. Avoid taking aspirin products. 5. You will be able to resume all your pre-procedure activities with-in a few days. Typ ically patients are off work 7 days. 6. If you are having extreme discomfort or bleeding notify the office immediately. 7. Resume a normal diet. Again, feel free to call the office if you have any questions - [phone] Benjamin: ____on Monday January 06, 2014 documented in this encounter Progress Notes Deneen Nava, Master of Arts - 01/04/2014 1:03 PM PDTPREOP DIAGNOSIS: VARICOSE VEINS Right and Left LEG SURGERY: Microvenectomy ANESTHESIA: Local anesthesia 1% xylocaine with epinephrine DURATION OF SURGERY: 1 hour FINDINGS: LEFT fonseca 4 sites of microvenectomy. RIGHT knee and fonseca- 12 sites of microvene ctomy PROCEDURE: The patient was brought to the procedure room after the nurse had confirmed the patient identification, patient allergies, and consent for signatures and procedure. W ith the patient in a standing position, I marked the protruding varicose veins with the fel t pen. The patient s Right and Left legs were prepped with Chloroprep and draped in a sterile m andrea. A pause for patient identification, procedure identification and review of allergies was performed. Xylocaine 0.5% plain was used to infiltrate at each site. Using the vein hook device, a 1 -2mm skin incision was made, the bulging varicosity was hooked using the armando hook. The v aricosity was withdrawn, clamped, divided and each end gently extracted as much as possible. Large veins were ligated with 4-0 Vicryl and smaller veins were compressed until no furthe r bleeding was noted. This process was repeated until all previously marked bulging varico sities were removed. A total of 4 microvenectomies on the left and 12 micro venectomies on the right were perfo rmed. Each wound was closed with 4-0 Vicryl or Steri-Strips. Gauze dressing, ABD dressing followed by snug compression wrap was then applied. Patient tolerated the procedure well. Was observed for 10-15 minutes allowed to be discharged home. Estimated blood loss: 2 ml Blood replace: none Specimen removed: varicose veins Jignesh Benjamin MD, FACS Vascular and General Surgery documented in this encounter Plan of Treatment +--------+---------+ + + + | Date | Type | Specialty | Care Team | Description | +--------+---------+ + + + | 02/14/ | Office | Cardiology | Jon Koehler, | | | 2019 | Visit | | MD Pooja LEAL | | | | | | [place], [place] | | | | | | [address] | | | | | | | | +--------+---------+ + + + documented as of this encounter Visit Diagnoses + + | Diagnosis | + + | Varicose veins of lower extremities with other complications - Primary | + + documented in this encounter
--- OUTSIDE RECORDS SUMMARY | ~2020-01-11 | XMS | Encounter Summary ---
Demographics + + + | Address | [address] | | | [place] [address] | + + + | Home Phone | | + + + | Preferred Language | Unknown | + + + | Marital Status | | + + + | Caodaism Affiliation | Unknown | + + + | Race | Unknown | + + + | Ethnic Group | Unknown | + + + Author + + + | Author | [facility] | | | and [place] | + + + | Organization | [facility] | | | and [place] | + + + | Address | Unknown | + + + | Phone | Unavailable | + + + Support + + + + + | Name | Relationship | Address | Phone | + + + + + | Alejandro Corea | ECON | [address] | | | | | [place] [address] | | + + + + + Care Team Providers + +------+ + | Care Clerical Adviser Name | Role | Phone | + +------+ + | Avel Neville MD | PCP | | + +------+ + Reason for Referral Diagnostic/Screening (Routine) +--------+--------+ + + + + | Status | Reason | Specialty | Diagnoses / | Referred By | Referred To | | | | | Procedures | Contact | Contact | +--------+--------+ + + + + | Closed | | Radiology | Diagnoses | | [address] | | | | | Chronic | [place], | [address] | | | | | bronchitis | Bela Funez, | [place], | | | | | with | [address] | [place] [address] | | | | | productive | [address] | Phone: | | | | | mucopurulent | [place], | [phone] | | | | | cough (HCC) | [place] [address] | Fax: | | | | | Procedures | | [phone] | | | | | CT Chest | | | | | | | wo Contrast | | | +--------+--------+ + + + + Reason for Visit Diagnostic/Screening (Routine) +--------+--------+ + + + + | Status | Reason | Specialty | Diagnoses / | Referred By | Referred To | | | | | Procedures | Contact | Contact | +--------+--------+ + + + + | Closed | | Radiology | Diagnoses | | [address] | | | | | Chronic | [place], | [address] | | | | | bronchitis | Bela B, | [place], | | | | | with | MD [address] | [place] [address] | | | | | productive | [address] | Phone: | | | | | mucopurulent | [place], | [phone] | | | | | cough (HCC) | [place] [address] | Fax: | | | | | Procedures | | [phone] | | | | | CT Chest | | | | | | | wo Contrast | | | +--------+--------+ + + + + Encounter Details +--------+ + + + + | Date | Type | Department | Care Team | Description | +--------+ + + + + | 07/31/ | Hospital | [facility] | [place], | Chronic bronchitis | | 2014 | Encounter | [facility] [address] | Bela Funez MD | with productive | | | | [address] [place], | | mucopurulent cough | | | | [place] [address] | | ([facility]) | | | | [phone] | | | +--------+ + + + + Social History + + + +--------+ + | Tobacco Use | Types | Packs/Day | Years | Date | | | | | Used | | + + + +--------+ + | Former Smoker | Cigarettes | 0.7 | 30 | Quit: 07/06/1991 | + + + +--------+ + + [...] + + documented as of this encounter Medications at Time of Discharge + + + +---------+ + + | Medication | Sig | Dispensed | Refills | Start | End Date | | | | | | Date | | + + + +---------+ + + | albuterol 2.5 mg/3 | Take 2.5 mg by | | 0 | | | | mL nebulizer | nebulization every 6 | | | | | | solution | hours as needed. | | | | | + + + +---------+ + + | aspirin 325 mg | Take 325 mg by mouth | | 0 | | | | tablet | Daily. | | | | | + + + +---------+ + + | busPIRone (BUSPAR) | Take 5 mg by mouth | | 0 | 06/03/20 | | | 10 MG tablet | every morning. | | | 12 | | + + + +---------+ + + | Calcium-Vitamin D | Take 1 tablet by | | 0 | | | | 600-200 MG-UNIT TABS | mouth Daily. | | | | | + + + +---------+ + + | Cranberry 300 MG | Take 1 tablet by | | 0 | | | | TABS | mouth Daily. | | | | | + + + +---------+ + + | levothyroxine | Take 1 tablet Thursday | | 0 | 06/03/20 | | | (LEVOXYL) 112 mcg | thru Thursday and | | | 12 | | | tablet | 1/2 tablet on Thursday | | | | | | | or as directed | | | | | + + + +---------+ + + | potassium chloride | Take 20 mEq by mouth | | 0 | 06/03/20 | | | (KLOR-CON) 10 mEq | 2 times daily. | | | 12 | | | CR tablet | | | | | | + + + +---------+ + + | thyroid (CASEY) | Take 15 mg by mouth | | 0 | | | | 15 MG tablet | Daily. | | | | | + + + +---------+ + + | albuterol (PROAIR | Inhale 2 puffs into | 1 | 3 | 07/06/20 | | | HFA) 90 mcg/puff | the lungs every 6 | Inhaler | | 15 | 7 | | inhaler | hours as needed for | | | | | | | Wheezing or | | | | | | | Shortness of Breath. | | | | | + + + +---------+ + + | | TABS. 2 tablets by | | 0 | 06/03/20 | | | RIMGKNN-PECJINYUX-YD | mouth daily | | | 12 | 7 | | NC PO | | | | | | + + + +---------+ + + | cetirizine | Take 1 tablet by | 30 | 11 | 07/31/20 | | | (ZYRTEC) 10 mg | mouth Daily. | tablet | | 15 | 7 | | tablet | | | | | | + + + +---------+ + + | Cholecalciferol | CAPS. 2 capsules by | | 0 | 06/03/20 | | | (VITAMIN D3 PO) | mouth daily | | | 12 | 7 | + + + +---------+ + + | estradiol (CHAD) | One tablet by mouth | | 0 | 06/30/20 | | | 0.05 mg/24 hr | daily | | | 12 | 7 | + + + +---------+ + + | fluticasone | instill 2 sprays | 16 g | 11 | 01/23/20 | | | (FLONASE) 50 | into each nostril | | | 15 | 6 | | mcg/nasal spray | once daily | | | | | + + + +---------+ + + | | inhale 1 dose by | 60 each | 6 | 07/11/20 | | | fluticasone-salmeter | mouth twice a day | | | 15 | 6 | | ol (ADVAIR DISKUS) | | | | | | | 250-50 mcg/puff | | | | | | | diskus inhaler | | | | | | + + + +---------+ + + | | Take 1 tablet by | | 0 | | | | HYDROcodone-acetamin | mouth every 6 hours | | | | 7 | | ophen (VICODIN) | as needed. | | | | | | 5-500 mg per tablet | | | | | | + + + +---------+ + + | ipratropium | 2 puffs inhaled | | 0 | 06/03/20 | | | (ATROVENT HFA) 17 | every 4 hours as | | | 12 | 6 | | mcg/puff inhaler | needed for shortness | | | | | | | of breath | | | | | + + + +---------+ + + | Lactobacillus | 4 tablets by mouth | | 0 | 06/03/20 | | | (ACIDOPHILUS) TABS | daily | | | 12 | 7 | + + + +---------+ + + | levothyroxine | Take 125 mcg by | | 0 | 06/03/20 | | | (LEVOXYL) 125 mcg | mouth Every other | | | 12 | 5 | | tablet | day. | | | | | + + + +---------+ + + | montelukast | Take 1 tablet by | 30 | 6 | 07/11/20 | | | (SINGULAIR) 10 mg | mouth Daily. | tablet | | 15 | 6 | | tablet | | | | | | + + + +---------+ + + | multivitamin | 1 tablet by mouth | | 0 | 06/03/20 | | | (THERAGRAN) per | daily | | | 12 | 7 | | tablet | | | | | | + + + +---------+ + + | omeprazole | Take 20 mg by mouth | | 0 | 07/30/20 | | | (PRILOSEC) 20 mg | every morning | | | 13 | 5 | | capsule | (before breakfast). | | | | | + + + +---------+ + + | tacrolimus | Apply topically 2 | | 0 | | | | (PROTOPIC) 0.1 % | times daily. | | | | 7 | | ointment | | | | | | + + + +---------+ + + | theophylline | Take 300 mg by mouth | | 0 | 06/03/20 | | | (THEOPHYLLINE) 300 | 2 times daily. | | | 12 | 6 | | mg 12 hr tablet | | | | | | + + + +---------+ + + | triamcinolone | Place onto teeth 2 | | 0 | | | | (KENALOG) 0.1% paste | times daily. | | | | 7 | + + + +---------+ + + | | Take 75-50 mg by | | 0 | 06/03/20 | | | triamterene-hydrochl | mouth as needed. | | | 12 | 7 | | orothiazide | | | | | | | (MAXZIDE) 75-50 mg | | | | | | | per tablet | | | | | | + + + +---------+ + + documented as of this encounter Plan of Treatment +--------+---------+ + + + | Date | Type | Specialty | Care Team | Description | +--------+---------+ + + + | 02/14/ | Office | Cardiology | Jon Koehler, | | | 2019 | Visit | | [address] | | | | | | [place], [place] | | | | | | [address] | | | | | | | | +--------+---------+ + + + documented as of this encounter Procedures + +--------+ + + + | Procedure Name | Priori | Date/Time | Associated Diagnosis | Comments | | | ty | | | | + +--------+ + + + | CT CHEST WO CONTRAST | Routin | 07/31/2015 | Chronic bronchitis | Results for this | | | e | 8:37 AM | with productive | procedure are in the | | | | PST | mucopurulent cough | results section. | | | | | (HCC) | | + +--------+ + + + documented in this encounter Results CT Chest wo Contrast (07/31/2015 8:37 AM PST) + + | Specimen | + + | | + + + + + | Narrative | Performed At | + + + | UNENHANCED CHEST CT 07/31/2015 8:28 AM CLINICAL HISTORY: chronic | [facility] | | cough for 2 months, history of COPD, did not resolve after treatment | . [facility] | | with steroids and antibiotics COMPARISON: None available | [facility] | | TECHNIQUE: Axial unenhanced images are performed through the chest, | - IMAGING | | along with multiplanar reformations. FINDINGS: There is minimal | | | calcified plaque within the thoracic aorta. The heart and thoracic | | | vasculature otherwise have an unremarkable unenhanced appearance. | | | Borderline enlarged right paratracheal node measuring 10 mm short | | | axis is noted on image 35, and additional subthreshold sized nodes are | | | scattered elsewhere throughout the mediastinum. No overtly | | | pathologic lymph node enlargement is evident on the basis of size | | | criteria. There is no pneumothorax or pleural effusion. There | | | is minimal biapical pleural thickening. Scattered mild bandlike | | | opacities in the basilar lungs favor atelectasis/scar. Few tiny, | | | calcified granulomata are present in the lungs. No suspicious | | | nodule, consolidation or airway abnormality is evident. There is | | | leftward upper thoracic curvature and mid to lower thoracic | | | degenerative disc disease and spondylosis. Bones, soft tissues and | | | imaged upper abdomen are otherwise unremarkable. IMPRESSION - | | | 1. MINIMAL DEPENDENT DENSITY AND BANDLIKE OPACITY IN THE BASILAR | | | LUNGS FAVORING ATELECTASIS/SCAR, WITHOUT CONSOLIDATION, SUSPICIOUS | | | NODULE, VISIBLE AIRWAY ABNORMALITY OR OTHER ABNORMALITY OF THE LUNG | | | ARCHITECTURE. 2. BORDERLINE ENLARGED RIGHT PARATRACHEAL LYMPH | | | NODE. 3. 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 Dictated and Signed by: Doc Ellis MD | | | Electronically signed: 07/31/2015 10:11 AM | | + + + + + | Procedure Note | + + | Luis, Rad Results In - 07/31/2015 10:14 AM PST UNENHANCED CHEST CT 07/31/2015 8:28 AM | | | | CLINICAL HISTORY: chronic cough for 2 months, history of COPD, did not resolve | | after treatment with steroids and antibiotics | | | | COMPARISON: None available | | | | TECHNIQUE: Axial unenhanced images are performed through the chest, along with | | multiplanar reformations. | | | | FINDINGS: There is minimal calcified plaque within the thoracic aorta. The | | heart and thoracic vasculature otherwise have an unremarkable unenhanced | | appearance. Borderline enlarged right paratracheal node measuring 10 mm short | | axis is noted on image 35, and additional subthreshold sized nodes are scattered | | elsewhere throughout the mediastinum. No overtly pathologic lymph node | | enlargement is evident on the basis of size criteria. There is no pneumothorax | | or pleural effusion. | | | | There is minimal biapical pleural thickening. Scattered mild bandlike opacities | | in the basilar lungs favor atelectasis/scar. Few tiny, calcified granulomata | | are present in the lungs. No suspicious nodule, consolidation or airway | | abnormality is evident. | | | | There is leftward upper thoracic curvature and mid to lower thoracic | | degenerative disc disease and spondylosis. Bones, soft tissues and imaged upper | | abdomen are otherwise unremarkable. | | | | IMPRESSION - | | 1. MINIMAL DEPENDENT DENSITY AND BANDLIKE OPACITY IN THE BASILAR LUNGS FAVORING | | ATELECTASIS/SCAR, WITHOUT CONSOLIDATION, SUSPICIOUS NODULE, VISIBLE AIRWAY | | ABNORMALITY OR OTHER ABNORMALITY OF THE LUNG ARCHITECTURE. | | | | 2. BORDERLINE ENLARGED RIGHT PARATRACHEAL LYMPH NODE. | | | | 3. 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 | | | | Dictated and Signed by: Doc Ellis MD | | Electronically signed: 07/31/2015 10:11 AM | + + + + + + + | Performing | Address | City/State/Zipcode | Phone Number | | Organization | | | | + + + + + | [facility] | [address] | [place] | [phone] | | [facility] | | [address] | | | - IMAGING | | | | + + + + + documented in this encounter Visit Diagnoses + + | Diagnosis | + + | Chronic bronchitis with productive mucopurulent cough (HCC) Mucopurulent chronic | | bronchitis | + + documented in this encounter"
--- OUTSIDE RECORDS SUMMARY | ~2020-01-11 | XMS | Encounter Summary ---
Demographics + + + | Address | [address] | | | [place] [address] | + + + | Home Phone | | + + + | Preferred Language | Unknown | + + + | Marital Status | | + + + | Hindu Affiliation | Unknown | + + + | Race | Unknown | + + + | Ethnic Group | Unknown | + + + Author + + + | Author | [facility] | | | and [place] | + + + | Organization | [facility] | | | and [place] | + + + | Address | Unknown | + + + | Phone | Unavailable | + + + Support + + + + + | Name | Relationship | Address | Phone | + + + + + | Alejandro Corea | ECON | [address] | | | | | [place] [address] | | + + + + + Care Team Providers + +------+ + | Care Shoe Stamper Name | Role | Phone | + [...] Description | +--------+--------+ + + + | 12/17/ | Refill | [facility] | [place], | Medication Refill | | 2015 | | PULMONARY [address] | [place] | | | | | [place], | | | | | | [place] [address] | | | | | | [phone] | | | +--------+--------+ + + + [...] | | | | | [place] | | | | | | [address] | | | | | | | | +--------+---------+ + + + documented as of this encounter Visit Diagnoses Not on filedocumented in this encounter"
--- OUTSIDE RECORDS SUMMARY | ~2020-01-11 | XMS | Clinical Summary ---
Demographics + + + | Address | [address] | | | [place] [address] | + + + | Home Phone | | + + + | Preferred Language | Unknown | + + + | Marital Status | | + + + | Sabianism Affiliation | Unknown | + + + | Race | Unknown | + + + | Ethnic Group | Unknown | + + + Author + + + | Author | [facility] | | | and [place] | + + + | Organization | [facility] | | | and [place] | + + + | Address | Unknown | + + + | Phone | Unavailable | + + + Support + + + + + | Name | Relationship | Address | Phone | + + + + + | Alejandro Corea | ECON | [address] [place] [address] | | | | | [place] [address] | | + + + + + Care Team Providers + +------+ + | Care Telecom Analyst Name | Role | Phone | + +------+ + | Mynor Vogt MD | PCP | | + +------+ + Allergies + + + + + + | Active Allergy | Reactions | Severity | Noted | Comments | | | | | Date | | + + + + + + | Amoxicillin | Hives, Rash | High | | | + + + + + + | Meperidine | | | 10/15/20 | | | | | | 15 | | + + + + + + | Dust Mite Extract | | | 09/19/20 | | | | | | 15 | | + + + + + + | Molds & Smuts | | | 09/19/20 | | | | | | 15 | | + + + + + + | Oxycodone | | | | | + + + + + + Medications + + + +---------+------+------+-------+ | Medication | Sig | Dispensed | Refills | Star | End | Statu | | | | | | t | Date | s | | | | | | Date | | | + + + +---------+------+------+-------+ | levothyroxine | Take 1 tablet Thursday | | 0 | 05/22 | | Activ | | (LEVOXYL) 112 mcg | thru Thursday and | | | 12/08 | | e | | tablet | 1/2 tablet on Thursday | | | 12 | | | | | or as directed | | | | | | + + + +---------+------+------+-------+ | potassium chloride | Take 20 mEq by mouth | | 0 | 05/22 | | Activ | | (KLOR-CON) 10 mEq | 2 times daily. | | | 12/08 | | e | | CR tablet | | | | 12 | | | + + + +---------+------+------+-------+ | busPIRone (BUSPAR) | Take 5 mg by mouth | | 0 | 05/22 | | Activ | | 10 MG tablet | every morning. | | | 3 | | e | | | | | | 12 | | | + + + +---------+------+------+-------+ | albuterol 2.5 mg/3 | Take 2.5 mg by | | 0 | | | Activ | | mL nebulizer | nebulization every 6 | | | | | e | | solution | hours as needed. | | | | | | + + + +---------+------+------+-------+ | thyroid (ARMOUR) | Take 15 mg by mouth | | 0 | | | Activ | | 15 MG tablet | Daily. | | | | | e | + + + +---------+------+------+-------+ | aspirin 325 mg | Take 325 mg by mouth | | 0 | | | Activ | | tablet | Daily. | | | | | e | + + + +---------+------+------+-------+ | Calcium-Vitamin D | Take 1 tablet by | | 0 | | | Activ | | 600-200 MG-UNIT TABS | mouth Daily. | | | | | e | + + + +---------+------+------+-------+ | Cranberry 300 MG | Take 1 tablet by | | 0 | | | Activ | | TABS | mouth Daily. | | | | | e | + + + +---------+------+------+-------+ | | Take 5-10 mLs by | | 0 | | | Activ | | promethazine-codeine | mouth 4 times daily | | | | | e | | (PHENERGAN WITH | as needed for Cough. | | | | | | | CODEINE) 6.25-10 | | | | | | | | mg/5 mL syrup | | | | | | | + + + +---------+------+------+-------+ | montelukast | Take 1 tablet by | 30 | 11 | 03/2 | | Activ | | (SINGULAIR) 10 mg | mouth Daily. | tablet | | 9/20 | | e | | tablet | | | | 16 | | | + + + +---------+------+------+-------+ | | inhale 1 dose by | 60 each | 11 | 03/2 | | Activ | | fluticasone-salmeter | mouth twice a day | | | 06/10 | | e | | ol (ADVAIR DISKUS) | | | | 16 | | | | 250-50 mcg/puff | | | | | | | | diskus inhaler | | | | | | | + + + +---------+------+------+-------+ | theophylline | Take 1 tablet by | 60 | 11 | /2 | | Activ | | (THEODUR) 300 mg 12 | mouth 2 times daily. | tablet | | 06/10 | | e | | hr tablet | | | | 16 | | | + + + +---------+------+------+-------+ | fluticasone | 2 sprays by Nasal | 16 g | 11 | 03/2 | | Activ | | (FLONASE) 50 | route Daily. | | | 06/10 | | e | | mcg/nasal spray | | | | 16 | | | + + + +---------+------+------+-------+ | estradiol | Take 0.5 mg by mouth | | 0 | 03/2 | | Activ | | (ESTRACE) 0.5 mg | Daily. | | | 20 | | e | | tablet | | | | 17 | | | + + + +---------+------+------+-------+ | | Take 1 tablet by | | 0 | | | Activ | | triamterene-hydrochl | mouth Daily. | | | | | e | | orothiazide | | | | | | | | (MAXZIDE) 75-50 mg | | | | | | | | per tablet | | | | | | | + + + +---------+------+------+-------+ | Acidophilus | Take 1 capsule by | | 0 | | | Activ | | Lactobacillus CAPS | mouth Daily. | | | | | e | + + + +---------+------+------+-------+ | acetaminophen | Take 500 mg by mouth | | 0 | | | Activ | | (TYLENOL) 500 mg | Twice daily as | | | | | e | | tablet | needed for Pain (For | | | | | | | | arthritis). | | | | | | + + + +---------+------+------+-------+ | albuterol (PROAIR | Inhale 2 puffs into | | 0 | | | Activ | | HFA) 90 mcg/puff | the lungs every 4 | | | | | e | | inhaler | hours as needed for | | | | | | | | Wheezing or | | | | | | | | Shortness of Breath. | | | | | | + + + +---------+------+------+-------+ | cetirizine | Take 10 mg by mouth | | 0 | | | Activ | | (ZYRTEC) 10 mg | Daily. 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 | + + + + + | Hoarseness of voice | 06/09/2013 | + + + | Moderate persistent asthma without complication | | + + + | Allergic rhinitis due to pollen | | + + + | COPD (chronic obstructive pulmonary disease) | | + + + | Osteopenia | | + + + | Hypothyroid | | + + + | Lichen planus | | + + + | Osteoarthritis | | + + + | Raynaud's syndrome | | + + + | Spinal stenosis | | + + + | Venous insufficiency | | + + + | Vitamin D deficiency | | + + + Immunizations + + + + | Name | Administration Dates | Next Due | + + + + | INFLUENZA 67 Y OR >, | 06/30/2016 | | | TRIVALENT HIGH-DOSE | | | + + + + | INFLUENZA PF 20 Y OR | 05/05/2015 | | | >,TRIVALENT | | | | RECOMBINANT | | | + + + + | PNEUMOCOCCAL | 09/28/2014 | | | CONJUGATE 13-VALENT | | | | (PCV13) | | | + + + + | PNEUMOCOCCAL | 07/24/2016 | | | POLYSACCHARIDE | | | | 23-VALENT (PPSV23) | | | + + + + | TDAP, (ADOL/ADULT) | 07/04/2014 | | + + + + Family History + + +------+ + | Medical History | Relation | Name | Comments | + + +------+ + | Hypertension | Brother | | | + + +------+ + | Allergies | Father | | | + + +------+ + | Cancer | Father | | lymphoma | + + +------+ + | Coronary artery | Father | | | | disease | | | | + + +------+ + | Heart disease | Maternal | | | | | Grandfath | | | | | er | | | + + +------+ + | Cancer | Maternal | | | | | Grandmoth | | | | | er | | | + + +------+ + | Muscle disease | Mother | | ALS | + + +------+ + | Colon cancer | Paternal | | | | | Grandmoth | | | | | er | | | + + +------+ + | Lung cancer | Sister | | | + + +------+ + + +------+ + + | Relation | Name | Status | Comments | + +------+ + + | Brother | | Alive | | + +------+ + + | Brother | | | | + +------+ + + | Father | | | lymphoma | | | | (Age | | | | | 95) | | + +------+ + + | Maternal Grandfather | | | | + +------+ + + | Maternal Grandmother | | | | + +------+ + + | Mother | | | ALS | | | | (Age | | | | | 76) | | + +------+ + + | Paternal Grandmother | | | | + +------+ + + | Sister | | Alive | | + +------+ + + Social History + + + +--------+ + | Tobacco Use | Types | Packs/Day | Years | Date | | | | | Used | | + + + +--------+ + | Former Smoker | Cigarettes | 0.7 | 30 | 04/26/1961 - | | | | | | 09/04/1999 | + + + +--------+ + + +---+---+---+ | Smokeless Tobacco: | | | | | Never Used | | | | + +---+---+---+ + + | Tobacco Cessation: Counseling Given: No | | Comments: "Closet Smoker" | + + + + +---------+ + | Alcohol [...] recent travel history available. | + + Last Filed Vital Signs + + + + + | Vital Sign | Reading | Time Taken | Comments | + + + + + | Blood Pressure | 110/76 | 02/24/2017 8:39 AM | | | | | PDT | | + + + + + | Pulse | 62 | 02/24/2017 8:39 AM | | | | | PDT | | + + + + + | Temperature | 36.6 C (97.8 F) | 02/24/2017 8:39 AM | | | | | PDT | | + + + + + | Respiratory Rate | 16 | 11/19/2015 1:47 PM | | | | | PST | | + + + + + | Oxygen Saturation | 100% | 02/24/2017 8:39 AM | | | | | PDT | | + + + + + | Inhaled Oxygen | - | - | | | Concentration | | | | + + + + + | Weight | 68 kg (150 lb) | 02/24/2017 8:39 AM | | | | | PDT | | + + + + + | Height | 167.6 cm (5' 6") | 02/24/2017 8:39 AM | | | | | PDT | | + + + + + | Body Mass Index | 24.21 | 02/24/2017 8:39 AM | | | | | PDT | | + + + + + Plan of Treatment +--------+---------+ + + + | Date | Type | Specialty | Care Team | Description | +--------+---------+ + + + | 02/14/ | Office | Cardiology | Jon Koehler, | | | 2019 | Visit | | MD [address] | | | | | | [place] | | | | | | [address] | | | | | | | | +--------+---------+ + + + + + + + + | Health Maintenance | Due Date | Last Done | Comments | + + + + + | Vaccine: Zoster (1 | | | | | of 2) | 2 | | | + + + + + | Breast Cancer | | | | | Screening | 7 | | | + + + + + | Adult Annual | | | | | Wellness Visit | 9 | | | + + + + + | Vaccine: Influenza | | 06/30/2016, 05/05/2015 | | | (Season Ended) | 0 | | | + + + + + | Vaccine: | | 07/04/2014 | | | Dtap/Tdap/Td (2 - | 4 | | | | Td) | | | | + + + + + | Vaccine: | Completed | 07/24/2016, 09/28/2014 | | | Pneumococcal 65+ | | | | + + + + + Results Not on filefrom Last 3 Months Insurance + +--------+ +--------+ +---------+--------+ | Payer | Benefi | Subscriber | Effect | Phone | Address | Type | | | t Plan | ID | yaw | | | | | | / | | Dates | | | | | | Group | | | | | | + +--------+ +--------+ +---------+--------+ | CIGNA | CIGNA | [id number] | Effect | [phone] | | Indemn | | | MDCR | | yaw | 1 | | ity | | | SUPPLE | | for | | | | | | MENT | | all | | | | | | SOLUTI | | dates | | | | | | ONS | | | | | | + +--------+ +--------+ +---------+--------+ | MEDICARE | MEDICA | [id number] | | [phone] | | Medica | | | RE | | 007-Pr | 5 | | re | | | PART A | | esent | | | | | | AND B | | | | | | + +--------+ +--------+ +---------+--------+ | MEDICARE | MEDICA | [id number] | | [phone] | | Medica | | | RE | | 007-Pr | 5 | | re | | | PART A | | esent | | | | | | AND B | | | | | | + +--------+ +--------+ +---------+--------+ | [employer] | TRANSA | [id number] | 09/21/19 | | | Indemn | | INSURANCE | MERICA | | 15-Pre | | | ity | | | LIFE | | sent | | | | | | [place] | | | | | | + +--------+ +--------+ +---------+--------+ + +--------+ +--------+ + + | Guarantor Name | Accoun | Relation to | Date | Phone | Billing Address | | | t Type | Patient | of | | | | | | | | | | + +--------+ +--------+ + + | Yen Corea | Person | Self | [birth year] | [address] | | | al/Fam | | 1940 | [phone] | [place] [address] | | | samm | | | 1 (Home) | | | | | | | [phone] | | | | | | | 1 (Work) | | + +--------+ +--------+ + + | Yen Corea | Person | Self | [birth year] | | [address] | | | al/Fam | | 1940 | [phone] | [place] [address] | | | samm | | | 1 (Home) | | | | | | | [phone] | | | | | | | 1 (Work) | | + +--------+ +--------+ + + Advance Directives + + + + + | Type | Date Recorded | Patient | Explanation | | | | Precision Agronomist | | + + + + + | Power of | | | | | Damascener | | | | + + + + + | Advance | | | | | Directive | | | | + + + + +
--- OUTSIDE RECORDS SUMMARY | ~2020-01-11 | XMS | Encounter Summary ---
Demographics + + + | Address | [address] | | | [place] [address] | + + + | Home Phone | | + + + | Preferred Language | Unknown | + + + | Marital Status | | + + + | Episcopal Affiliation | Unknown | + + + | Race | Unknown | + + + | Ethnic Group | Unknown | + + + Author + + + | Author | [facility] | | | and [place] | + + + | Organization | [facility] | | | and [place] | + + + | Address | Unknown | + + + | Phone | Unavailable | + + + Support + + + + + | Name | Relationship | Address | Phone | + + + + + | Alejandro Corea | ECON | [address] | | | | | [place] [address] | | + + + + + Care Team Providers + +------+ + | Care Commissary Manager Name | Role | Phone | + +------+ + | Avel Neville MD | PCP | | + +------+ + Reason for Visit +--------+ + | Reason | Comments | +--------+ + | Other | Confirm Appt Tomorrow | +--------+ + Encounter Details +--------+ + + + + | Date | Type | Department | Care Team | Description | +--------+ + + + + | 01/03/ | Telephone | [facility] | Jignesh Benjamin | Other (Confirm Appt | | 2013 | | SURGERY [address] | MD Chanelle, FACS [address] | Tomorrow) | | | | [place], [place] | [address] | | | | | [address] | [place] [address] | | | | | [phone] | [phone] | | | | | | | [...] | | | | | | [place] | | | | | | [address] | | | | | | | | +--------+---------+ + + + documented as of this encounter Visit Diagnoses Not on filedocumented in this encounter"
--- OUTSIDE RECORDS SUMMARY | ~2020-01-11 | XMS | Encounter Summary ---
Demographics + + + | Address | [address] | | | [place] [address] | + + + | Home Phone | | + + + | Preferred Language | Unknown | + + + | Marital Status | | + + + | Jainism Affiliation | Unknown | + + + | Race | Unknown | + + + | Ethnic Group | Unknown | + + + Author + + + | Author | [facility] | | | and [place] | + + + | Organization | [facility] | | | and [place] | + + + | Address | Unknown | + + + | Phone | Unavailable | + + + Support + + + + + | Name | Relationship | Address | Phone | + + + + + | Alejandro Corea | ECON | [address] | | | | | [place] [address] | | + + + + + Care Team Providers + +------+ + | Care Seam Stay Stitcher Name | Role | Phone | + +------+ + | Avel Neville MD | PCP | | + +------+ + Reason for Visit + + + | Reason | Comments | + + + | Appointment | Patient needs to be scheduled for a Microvenectomy | + + + Encounter Details +--------+ + + + + | Date | Type | Department | Care Team | Description | +--------+ + + + + | 09/16/ | Telephone | [facility] | Jignesh Benjamin | Appointment (Patient | | 2012 | | SURGERY [address] | MD Chanelle, FACS [address] | needs to be | | | | [place], [place] | [address] [facility] | scheduled for a | | | | [address] | [place] [address] | Microvenectomy) | | | | [phone] | [phone] | | | | | | | [...] | | | | | [place], [place] | | | | | | [address] | | | | | | | | +--------+---------+ + + + documented as of this encounter Visit Diagnoses Not on filedocumented in this encounter"
--- OUTSIDE RECORDS SUMMARY | ~2020-01-11 | XMS | Encounter Summary ---
Demographics + + + | Address | [address] | | | [place] [address] | + + + | Home Phone | | + + + | Preferred Language | Unknown | + + + | Marital Status | | + + + | Anglican Affiliation | Unknown | + + + | Race | Unknown | + + + | Ethnic Group | Unknown | + + + Author + + + | Author | [facility] | | | and [place] | + + + | Organization | [facility] | | | and [place] | + + + | Address | Unknown | + + + | Phone | Unavailable | + + + Support + + + + + | Name | Relationship | Address | Phone | + + + + + | Alejandro Corea | ECON | [address] | | | | | [place] [address] | | + + + + + Care Team Providers + +------+ + | Care Chip Separator Name | Role | Phone | + +------+ + | Avel Neville MD | PCP | | + +------+ + Reason for Visit + + + | Reason | Comments | + + + | Bronchitis | Yearly | + + + | Cough | | + + + Encounter Details +--------+---------+ + + + | Date | Type | Department | Care Team | Description | +--------+---------+ + + + | 02/24/ | Office | [facility] | Caleb Chery, | Chronic obstructive | | 2017 | Visit | PULMONARY [address] | asthma without | | | | [place], | [place] [address] | status asthmaticus | | | | [place] [address] | [phone] | ([facility]) (Primary Dx) | | | | [phone] | | | +--------+---------+ + + + [...] + documented in this encounter Progress Notes Caleb Chery MD - 02/24/2017 9:00 AM [id number] former smoker with well-c ontrolled chronic obstructive asthma HPI: She smoked about 6 cigarettes a day from 6644-5867 and quit when she got very sick. S he has never had another one. Asthma was diagnosed in 1966, when she was about 27 years old . When she was a child, however, she said she had a lot of bronchitis. She also had season al allergy when she was a child, as she does now. She only has phlegm when she is sick. He used to like to get a triamcinolone injection once a year but accepts that I won't give her 1. Wood, diesel, and other smoke is the worst provoking agent for her, along with viruses. She takes montelukast asked once daily, theophylline twice daily, and 1 puff of Advair disc us 250 twice daily. She carries albuterol but hasn't used it in one year. Past medical history: Her thyroid was removed. 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 She's had Raynaud's syndrome and arthritis since childhood. Adverse drug reactions: Artemus xicillin made her itch. Percodan made her vomit. Social history: She lives with her cat and her . Neither of them make her breathing worse. She drinks one cocktail a day after work. 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 Physical exam: She is a pleasant articulate woman in no distress. Weight 150 blood pressur e 110/76 pulse 62 and regular respirations 14 quiet temperature 97.8 oxygen saturation 100% on room air. HEENT: Pupils are reactive. Conjunctiva are pink. The oropharynx is normal. The neck is normal. The lung chew are completely clear with no wheeze and good airflow a t the mouth. The cardiac rhythm is regular with no murmur or gallop, although the heart is difficult to hear. The abdomen is soft and nontender. The extremities are normal. Laboratory evaluation: There is no new lab today. A chest CT from July 2015 shows medi astinal adenopathy but is otherwise negative. Impression and plan: 1. Chronic asthmatic rhonchi discus: This is stable and I recommend continued therapy as s he is doing. She seems all right with that. She can return in one year or sooner if she navarro s a problem. We spent 25 minutes, of which at least half was in counseling. [employer] Word processing was used and I apologize for uncorrected mistakes. Caleb Chery M.D. Pulmonary critical care documented in this encounter Plan of Treatment +--------+---------+ + + + | Date | Type | Specialty | Care Team | Description | +--------+---------+ + + + | 02/14/ | Office | Cardiology | Jon Koehler, | | | 2019 | Visit | | MD [address] | | | | | | [place] | | | | | | [address] | | | | | | | | +--------+---------+ + + + documented as of this encounter Visit Diagnoses + + | Diagnosis | + + | Chronic obstructive asthma without status asthmaticus (HCC) - Primary Chronic | | obstructive asthma, unspecified | + + documented in this encounter
--- OUTSIDE RECORDS SUMMARY | ~2020-01-11 | XMS | Encounter Summary ---
Demographics + + + | Address | [address] | | | [place] [address] | + + + | Home Phone | | + + + | Preferred Language | Unknown | + + + | Marital Status | | + + + | Yarsanism Affiliation | Unknown | + + + | Race | Unknown | + + + | Ethnic Group | Unknown | + + + Author + + + | Author | [facility] | | | and [place] | + + + | Organization | [facility] | | | and [place] | + + + | Address | Unknown | + + + | Phone | Unavailable | + + + Support + + + + + | Name | Relationship | Address | Phone | + + + + + | Alejandro Corea | ECON | [address] | | | | | [place] [address] | | + + + + + Care Team Providers + +------+ + | Care Cs Associate Name | Role | Phone | + +------+ + | Avel Neville MD | PCP | | + +------+ + Reason for Visit + + + | Reason | Comments | + + + | Follow-up | varicose veins of lower extremities with other complications | + + + Encounter Details +--------+---------+ + + + | Date | Type | Department | Care Team | Description | +--------+---------+ + + + | 02/08/ | Office | [facility] | Jignesh Benjamin | Varicose veins of | | 2013 | Visit | SURGERY [address] | MD Chanelle, FACS [address] | lower extremities | | | | [place], [place] | [facility] | with other | | | | [address] | [place] [address] | complications | | | | [phone] | [phone] | (Primary Dx) | | | | [...] + + + | Blood Pressure | 120/68 | 02/08/2014 9:04 AM | | | | | PDT | | + + + + + | Pulse | 60 | 02/08/2014 9:04 AM | | | | | PDT | | + + + + + | Temperature | 35.6 C (96.1 F) | 02/08/2014 9:04 AM | | | | | PDT | | + + + + + | Respiratory Rate | 16 | 02/08/2014 9:04 AM | | | | | PDT | | + + + + + | Oxygen Saturation | - | - | | + + + + + | Inhaled Oxygen | - | - | | | Concentration | | | | + + + + + | Weight | 67.1 kg (148 lb) | 02/08/2014 9:04 AM | | | | | PDT | | + + + + + | Height | - | - | | + + + + + | Body Mass Index | 24.25 | 01/10/2014 9:37 AM | | | | | PDT | | + + + + + documented in this encounter Progress Notes Jignesh Benjamin MD - 02/08/2014 9:02 AM PDT HISTORY OF PRESENT ILLNESS Patient Identification: Yen Corea 1940 Is a 73 y.o. female , a patient o lucía Neville. Patient is here alone. S: Date of surgery 01/04/14 . Title of surgery Microvenectomy. Patient is pleased with the results so far. Had sore spot on right calk. This has resolve d. No ankle swelling. Notes bleeding from spider veins at times. PAST MEDICAL HISTORY Past Medical History Diagnosis Date Asthma Allergic rhinitis Sprained ankle Fractured nose BRONCHITIS, OBSTRUCTIVE CHRONIC Osteopenia Past Surgical History Procedure Date Anastacio and bso Appendectomy Thyroidectomy Tonsillectomy Microvenectomy 01/04/2014 Bilateral legs Allergies Allergen Reactions Amoxicillin Hives Medications: Outpatient Encounter Prescriptions as of 02/08/2014 Medication Sig Dispense Refill ADVAIR DISKUS 250-50 MCG/DOSE diskus inhaler inhale 1 dose by mouth twice a day 60 eac h 11 albuterol (PROAIR HFA) 90 mcg/puff inhaler 2 puffs every 4 hours as needed for shortnes s of breath ALPRAZolam (XANAX) 0.5 mg tablet Take 0.5 mg by mouth Daily. ARMOUR THYROID PO Take 1 tablet by mouth Daily. busPIRone (BUSPAR) 10 MG tablet Take 5 mg by mouth every morning. DEGYGUN-SCMPPSRTZ-RWDE PO TABS. 2 tablets by mouth daily [...] mg by mouth 2 times daily. Family History Problem Relation Age of Onset Coronary artery disease Father Colon cancer grandmoter Allergies Father Social History: She reports that she has quit smoking. Her smoking use included Cigarettes. She has a 20 pa ck-year smoking history. She does not have any smokeless tobacco history on file. She report s that she drinks alcohol. She reports that she does not use illicit drugs. PHYSICAL EXAM Filed Vitals: 02/08/14 0904 BP: 120/68 Pulse: 60 Temp: 35.6 C (96.1 F) TempSrc: Temporal Resp: 16 Weight: 67.132 kg (148 lb) Lower extremities : Bilateral: Incisions healed. Several spider veins. Around ankle. RIGHT ankle liposclerosis. ASSESSMENT / PLAN Assessment/Plan: Yen was seen today for follow-up. Diagnoses and associated orders for this visit: Varicose veins of lower extremities with other complications Other Orders - ALPRAZolam (XANAX) 0.5 mg tablet; Take 0.5 mg by mouth Daily. Injection sclerotherapy in May, 2014. Prior lidocaine cream. Jignesh Benjamin MD, FACS Vascular and General Surgery documented in this encounter Plan of Treatment +--------+---------+ + + + | Date | Type | Specialty | Care Team | Description | +--------+---------+ + + + | 02/14/ | Office | Cardiology | Jon [place], | | | 2019 | Visit | | MD [address] | | | | | | [place] | | | | | | [address] | | | | | | | | +--------+---------+ + + + documented as of this encounter Visit Diagnoses + + | Diagnosis | + + | Varicose veins of lower extremities with other complications - Primary | + + documented in this encounter"
--- OUTSIDE RECORDS SUMMARY | ~2020-01-11 | XMS | Encounter Summary ---
Demographics + + + | Address | [address] | | | [place] [address] | + + + | Home Phone | | + + + | Preferred Language | Unknown | + + + | Marital Status | | + + + | Mandaeism Affiliation | Unknown | + + + [...] + | Alejandro Corea | ECON | [address] | | | | | [place] [address] | | + + + + + Care Team Providers + +------+ + | Care Welding Machine Operator Submerged Arc Name | Role | Phone | + +------+ + | Avel Neville MD | PCP | | + +------+ + Reason for Visit +--------+ + | Reason | Comments | +--------+ + | Other | Question on pain meds | +--------+ + Encounter Details +--------+ + + + + | Date | Type | Department | Care Team | Description | +--------+ + + + + | 02/07/ | Telephone | [facility] | Field Jignesh | Other (Question on | | 2013 | | [address] | MD Chanelle, FACS [address] | pain meds) | | | | [place], [place] | [facility] | | | | | [address] | [place] [address] | | | | | [phone] | [phone] | | | | | | | [...] | | | | | [place] | | | | | | [address] | | | | | | | | +--------+---------+ + + + documented as of this encounter Visit Diagnoses Not on filedocumented in this encounter"
--- OUTSIDE RECORDS SUMMARY | ~2020-01-11 | XMS | Encounter Summary ---
Demographics + + + | Address | [address] | | | [place] [address] | + + + | Home Phone | | + + + | Preferred Language | Unknown | + + + | Marital Status | | + + + | Baptism Affiliation | Unknown | + + + | Race | Unknown | + + + | Ethnic Group | Unknown | + + + Author + + + | Author | [facility] | | | and [place] | + + + | Organization | [facility] | | | and [place] | + + + | Address | Unknown | + + + | Phone | Unavailable | + + + Support + + + + + | Name | Relationship | Address | Phone | + + + + + | Alejandro Corea | ECON | [address] | | | | | [place] [address] | | + + + + + Care Team Providers + +------+ + | Care Oxidation Operator Name | Role | Phone | [...] Description | +--------+--------+ + + + | 12/27/ | Refill | [facility] | JoaquinPerry | Medication Refill | | 2013 | | PULMONARY [address] | MD Eunice [address] [address] | | | | | [place], | [place], [place] | | | | | [place] [address] | [address] | | | | | [phone] | | | +--------+--------+ + + + [...] | | | | | [place] | | | | | | [address] | | | | | | | | +--------+---------+ + + + documented as of this encounter Visit Diagnoses Not on filedocumented in this encounter"
--- OUTSIDE RECORDS SUMMARY | ~2020-01-11 | XMS | Encounter Summary ---
Demographics + + + | Address | [address] | | | [place] [address] | + + + | Home Phone | | + + + | Preferred Language | Unknown | + + + | Marital Status | | + + + | Yazdanism Affiliation | Unknown | + + + | Race | Unknown | + + + | Ethnic Group | Unknown | + + + Author + + + | Author | [facility] | | | and [place] | + + + | Organization | [facility] | | | and [place] | + + + | Address | Unknown | + + + | Phone | Unavailable | + + + Support + + + + + | Name | Relationship | Address | Phone | + + + + + | Alejandro Corea | ECON | [address] | | | | | [place] [address] | | + + + + + Care Team Providers + +------+ + | Care Credit Union Examiner Name | Role | Phone | + [...] | | Chronic | [place], | [address] | | | | | bronchitis | Bela Funez, | [place], | | | | | with | [address] | [place] [address] | | | | | productive | [address] | Phone: | | | | | mucopurulent | [place], | [phone] | | | | | cough (HCC) | [place] [address] | Fax: | | | | | Procedures | | [phone] | | | | | CT Chest | | | | | | | wo Contrast | | | +--------+--------+ + + + + Reason for Visit + + + | Reason | Comments | + + + | Establish Care | consult | + + + Encounter Details +--------+---------+ + + + | Date | Type | Department | Care Team | Description | +--------+---------+ + + + | 07/06/ | Office | [facility] | Silviaenstein, | COPD (chronic | | 2014 | Visit | PULMONARY [address] | Bela Funez MD | obstructive | | | | [place], | | pulmonary disease) | | | | [place] [address] | | ([facility]) (Primary Dx); | | | | [phone] | | Chronic bronchitis | | | | | | with productive | | | | | | mucopurulent cough | | | | | | ([facility]); Moderate | | | | | | persistent asthma | | | | | | without | | | | | | complication; | | | | | | Allergic [...] + | Blood Pressure | 120/70 | 07/06/2015 9:24 AM | | | | | PDT | | + + + + + | Pulse | 62 | 07/06/2015 9:24 AM | | | | | PDT | | + + + + + | Temperature | - | - | | + + + + + | Respiratory Rate | 20 | 07/06/2015 9:24 AM | | | | | PDT | | + + + + + | Oxygen Saturation | 99% | 07/06/2015 9:24 AM | | | | | PDT | | + + + + + | Inhaled Oxygen | - | - | | | Concentration | | | | + + + + + | Weight | 68 kg (150 lb) | 07/06/2015 9:24 AM | | | | | PDT | | + + + + + | Height | 167.6 cm (5' 6") | 07/06/2015 9:24 AM | | | | | PDT | | + + + + + | Body Mass Index | 24.21 | 07/06/2015 9:24 AM | | | | | PDT | | + + + + + documented in this encounter Patient Instructions Patient Instructions Bela Eric MD - 07/06/2015 10:03 AM PDTIf you are interest ed in getting a better mask, I would go to [employer] and look at what they have for chemica l protection. If you are just interested in something for dust, etc, you can buy an N95 mask, which you c an get at [employer], some pharmacies. Do an overnight oxygen test through [employer]. Call the [employer] before yo u pick it up to make sure they have a box available. You will pick pack worker a box at the [employer]. Do the test on room air. Wear the finger probe through the night and then return the box for a download the next day. We will give you a steroid shot today. I refilled the ProAir inhaler as well [facility]. Schedule the chest CT scan at your convenience. documented in this encounter Progress Notes Bela Eric MD - 07/06/2015 9:30 AM PDTFormatting of this note might be differe nt from the original. Pulmonary Consult Referring Provider: Perry Nuñez MD HORACIO Corea is a 75 y.o. female patient of Avel Neville here today for evalu ation of asthma and chronic bronchitis. She previously followed with Dr. Nuñez for asthma and chronic bronchitis, since 2001. W todd first seen she did have some atypical chest pain as well. She does have a past history o f smoking that also contributed to her chronic airway disease. When first seen, her inhaled steroid dose was increased and later she was placed on Advair and she noted significant impr ovement in her respiratory symptoms. At present she is using short acting bronchodilators ve ry infrequently. In the past, they did try to reduce her Advair to the lowest strength, but she gradually had increased symptoms requiring a return to the medium strength. Her last serious airway exacerbation was in June 2010. In addition to taking Advair, she takes theophylline twice daily, Singulair once daily and Claritin daily. She also uses flut icasone nasal spray most of the time. She notes that she had also tried going down to once daily on her Advair for financial reas ons. She notes that in May, she developed a lung infection, and she has had a difficul t time recovering from this. She went back up to twice daily on her Advair. She is still hav ing a lot of congestion in her lungs. She did take a course of steroids, azithromycin, and c ough syrup. This helped quite a bit, but she was left with the residual congestion. She takes ProAir as needed, and thinks hers is likely outdated as she uses it so infrequent ly. She has a nebulizer at home, but has only used it 3 times in the past. She notes she has a fairly good idea of what triggers her lung problems. This time she is q uite certain it was dust when she was cleaning. She also notes being out in the wind, cleani ng chemicals, etc, cause a lot of symptoms. She does have a lot of post nasal drip still. She is wondering if she can take something to help dry this up. She already takes Flonase 2 sprays once daily, and loratadine 10mg daily. In the past she has used Kenalog shots, which has worked fairly well. Currently they are able to walk 10 miles at their own pace on level ground. She did a 26 mi le walking marathon 4 years ago. She is walking less now as she has been busy with her mothe r in law having health problems, and her having health problems. She did a 5 mile wa lk this summer, and walks routinely, despite being busy, several miles most evenings. She has had to be hospitalized for breathing issues in the past. She worries about being ho spitalized again, and wants to avoid this. She has only had the one exacerbation in the past year. She has not been evaluated for nocturnal oxygen and does not use it. Past Medical History Past Medical History Diagnosis Date Asthma Allergic rhinitis Fractured nose Osteopenia COPD (chronic obstructive pulmonary disease) (HCC) Constipation, chronic Essential hypertension Hyperlipidemia Hypothermia due to non-environmental cause Hypothyroid Lichen planus Osteoarthritis Raynaud's syndrome Spinal stenosis Thrombophlebitis Contact urticaria Venous insufficiency Vitamin D deficiency Raynaud's syndrome Past Surgical History Past Surgical History Procedure Laterality Date Anastacio and bso Appendectomy Thyroidectomy Tonsillectomy Microvenectomy 01/04/2014 Bilateral legs Cyst removal From breast Family History: Family History Problem Relation Age of Onset Coronary artery disease Father Colon cancer grandmoter Allergies Father Cancer Sister lung cancer at 71 Social History: History Social History Marital Status: Spouse Name: N/A Number of Children: N/A Years of Education: N/A Social History Main Topics Smoking status: Former Smoker -- 1.00 packs/day for 20 years Types: Cigarettes Smokeless tobacco: None Alcohol Use: 4.2 oz/week 7 Not specified per week Comment: 1 drink per day Drug Use: No Sexual Activity: None Other Topics Concern None Social History Narrative Allergies: Allergies Allergen Reactions Amoxicillin Hives Meperidine Medications: Outpatient Encounter Prescriptions as of 07/06/2015 Medication Sig Dispense Refill ADVAIR DISKUS 250-50 MCG/DOSE diskus inhaler inhale 1 dose by mouth twice a day 60 each 5 albuterol (PROAIR HFA) 90 mcg/puff inhaler 2 puffs every 4 hours as needed for shortnes s of breath albuterol 2.5 mg/3 mL nebulizer solution Take 2.5 mg by nebulization every 6 hours as n eeded. [DISCONTINUED] ALPRAZolam (XANAX) 0.5 mg tablet Take 0.5 mg by mouth Daily. aspirin 325 mg tablet Take 325 mg by mouth Daily. busPIRone (BUSPAR) 10 MG tablet Take 5 mg by mouth every morning. PWHUOCA-TFRVNTOYA-TUIE PO TABS. 2 tablets by mouth daily Calcium-Vitamin D 600-200 MG-UNIT TABS Take 1 tablet by mouth Daily. Cholecalciferol (VITAMIN D3 PO) CAPS. 2 capsules by mouth daily Cranberry 300 MG TABS Take 1 tablet by mouth Daily. estradiol (CHAD) 0.05 mg/24 hr One tablet by mouth daily [DISCONTINUED] estrogens, conjugated, (PREMARIN) 0.3 mg tablet Take 0.3 mg by mouth Jocelyn ly. fluticasone (FLONASE) 50 mcg/nasal spray instill 2 [...] 20 mEq by mouth 2 times daily. tacrolimus (PROTOPIC) 0.1 % ointment Apply topically 2 times daily. theophylline (THEOPHYLLINE) 300 mg 12 hr tablet Take 300 mg by mouth 2 times daily. thyroid (ARMOUR) 15 MG tablet Take 15 mg by mouth Daily. triamcinolone (KENALOG) 0.1% paste Place onto teeth 2 times daily. triamterene-hydrochlorothiazide (MAXZIDE) 75-50 mg per tablet Take 75-50 mg by mouth as needed. Facility-Administered Encounter Medications as of 07/06/2015 Medication Dose Route Frequency Provider Last Rate Last Dose lidocaine-prilocaine (EMLA) cream Topical PRN Jignesh Benjamin MD Review of Systems: General: []Weight loss/gain (over 10 lbs) []Fever/chills/sweats []Night sweats Hematologic: [x]Bleeding/bruising tendencies []History of blood transfusion [x]Anemia [x]Enlarged lymph nodes EENT: []Hearing loss []Vision loss/change [x]Sinus congestion/nasal drainage []Nosebleeds [ x]Hoarseness Cardiac: []Chest pain []Palpitations/heart racing [x]Swelling of legs/ankles []Waking up at night short of breath []Difficulty sleeping flat Gastrointestinal: []Nausea/vomiting []Difficulty swallowing [x]Heartburn/acid reflux []Loss of appetite []Ab dominal pain Musculoskeletal: [x]Joint stiffness/swelling [x]Joint pain []Back pain [x]Arthritis []Gout Urologic: []Blood in urine []Frequent urination at night []Burning/painful urination []Difficulty wit h urination Neurological: []Headaches []Seizures []Memory loss or confusion []Numbness or tingling in feet or hands Psychiatric: []Depression [x]Anxiety/panic attacks []Suicidal ideation Sleep: []Difficulty falling asleep []Waking up at night frequently [x]Snoring []Stop breathing i n their sleep []Fall asleep frequently, or excessively tired Objective BP 120/70 mmHg | Pulse 62 | Resp 20 | Ht 1.676 m (5' 6") | Wt 68.04 kg (150 lb) | BMI 24.22 kg/m2 | SpO2 99% RA General Appearance: Alert, cooperative, no distress, appears stated age Head: Normocephalic, without obvious abnormality, atraumatic Eyes: PERRL, conjunctiva clear, no scleral icterus, EOM's intact Ears: Normal TM's, external auditory canals, normal acuity Nose: Nares normal, septum midline, mucosa mildly edematous with some clear drainage Mouth: No oral lesions or exudate Neck: Supple, symmetrical, no adenopathy Lungs: No accessory muscle use, breath sounds are diminished bilaterally with prolongatio n of the expiratory phase, no wheezes, crackles or rhonchi Chest Wall: No deformity Heart: Regular rate and rhythm, no murmur, rub or gallop Abdomen: Soft, non-tender, non-distended Extremities: No cyanosis, clubbing, trace lower extremity edema Pulses: Radial pulses 2+ and symmetric Skin: Warm and dry Lymph nodes: Cervical and supraclavicular nodes normal Data: Pulmonary function tests were performed on October 28, 2001 and were reviewed and interpret ed in clinic today. They show moderately severe obstructive disease. Labs: 01/04/2015 CMP normal x glu 119 B12 normal Free T3 normal CBC normal ESR 20 Avel Neville and Perry Nuñez's notes were reviewed in clinic today. Immunization History Administered Date(s) Administered INFLUENZA, TRIVALENT PRESERVATIVE FREE (PED/ADOL/ADULT) 05/05/2015 PNEUMOCOCCAL CONJUGATE 13-VALENT (PCV13) 05/05/2015 Assessment 1. COPD (chronic obstructive pulmonary disease) (HCC) - On Advair. Previous PFTs do suggest a large fixed obstructive component, but no bronchodilator was given. We could consider add ing an anti cholinergic, though she has had issues with constipation in the past. 2. Chronic bronchitis with productive mucopurulent cough (HCC) - Currently having more coug h after recent exacerbation. We will check a chest CT scan to exclude occult malignancy, bro nchiectasis or other issue. 3. Moderate persistent asthma without complication - On Advair, Singulair and theophylline. The theophylline she reports is more related to her vascular issues, as opposed to her lung disease. 4. Allergic rhinitis due to pollen - On nasal fluticasone spray and loratadine with general ly decent control. Plan 1.Continue current medication regimen. 2.Methylprednisolone injection given today at patient's request as she has found this helpf ul previously. 3.Check chest CT to exclude other causes of cough given risk factors. 4. Check overnight oximetry on room air. 5. High dose flu vaccine recommended. 6. I provided information on obtaining a mask to wear for protection. She was advised to call if new pulmonary symptoms were to develop. Return to clinic after chest CT scan. CC: Joaquin Becker, Perry Dawson MD Portions of this report were transcribed using voice recognition software. Every effort wa s made to ensure accuracy; however, inadvertent computerized certified retinal angiographer errors may be pre sent. documented in t his encounter Plan of Treatment +--------+---------+ + + + | Date | Type | Specialty | Care Team | Description | +--------+---------+ + + + | 02/14/ | Office | Cardiology | Rodo Alexarobyn, | | | 2019 | Visit | | [address] | | | | | | [place] | | | | | | [address] | | | | | | | | +--------+---------+ + + + + + +--------+ + + | Name | Type | Priori | Associated Diagnoses | Order Schedule | | | | ty | | | + + +--------+ + + | Overnight oximetry, | Respiratory | Routin | COPD (chronic | Expected: | | room air | Care | e | obstructive | 07/06/2015, Expires: | | | | | pulmonary disease) | 07/05/2016 | | | | | (HCC) | | + + +--------+ + + documented as of this encounter Results CT Chest wo Contrast (07/31/2015 8:37 AM PST) + + | Specimen | + + | | + + + + + | Narrative | Performed At | + + + | UNENHANCED CHEST CT 07/31/2015 8:28 AM CLINICAL HISTORY: chronic | [facility] | | cough for 2 months, history of COPD, did not resolve after treatment | [facility] | | with steroids and antibiotics COMPARISON: [...] | + + + + + | [facility] | [address] | [place] | [phone] | | [facility] | | [address] | | | - IMAGING | | | | + + + + + documented in this encounter Visit Diagnoses + + | Diagnosis | + + | COPD (chronic obstructive pulmonary disease) (HCC) - Primary Chronic airway | | obstruction, not elsewhere classified | + + | Chronic bronchitis with productive mucopurulent cough (HCC) Mucopurulent chronic | | bronchitis | + + | Moderate persistent asthma without complication Unspecified asthma | + + | Allergic rhinitis due to pollen | + + documented in this encounter Administered Medications + +--------+ +--------+------+ + | Medication Order | MAR | Action | Dose | Rate | Site | | | Action | Date | | | | + +--------+ +--------+------+ + | methylprednisoLONE acetate | Given | 07/06/20 | 120 mg | | Glut-Rig | | (DEPO-MEDROL) 80 mg/mL injection | | 15 11:27 | | | ht | | 120 mg 120 mg, Intramuscular, | | AM PDT | | | | | ONCE, 07/06/15 at 1115, For 1 | | | | | | | dose, Not for IV use., | | | | | | + +--------+ +--------+------+ + +---+---+ | | | +---+---+ documented in this encounter
--- OUTSIDE RECORDS SUMMARY | ~2020-01-11 | XMS | Encounter Summary ---
Demographics + + + | Address | [address] | | | [place] [address] | + + + | Home Phone | | + + + | Preferred Language | Unknown | + + + | Marital Status | | + + + | Zoroastrian Affiliation | Unknown | + + + | Race | Unknown | + + + | Ethnic Group | Unknown | + + + Author + + + | Author | [facility] | | | and [place] | + + + | Organization | [facility] | | | and [place] | + + + | Address | Unknown | + + + | Phone | Unavailable | + + + Support + + + + + | Name | Relationship | Address | Phone | + + + + + | Alejandro Corea | ECON | [address] | | | | | [place] [address] | | + + + + + Care Team Providers + +------+ + | Care Jerker Name | Role | Phone | + +------+ + | Avel Neville MD | PCP | | + +------+ + Reason for Visit + + + | Reason | Comments | + + + | Pre-op Exam | pre procedure/microvenectomy | + + + Encounter Details +--------+---------+ + + + | Date | Type | Department | Care Team | Description | +--------+---------+ + + + | 10/13/ | Office | [facility] | Jignesh Benjamin | Varicose veins of | | 2013 | Visit | SURGERY [address] | MD Chanelle, FACS [address] | lower extremities | | | | [place], [place] | [facility] | with other | | | | [address] | [place] [address] | complications | | | | [phone] | [phone] | (Primary Dx) | | | | [...] + + + | Blood Pressure | 116/70 | 10/13/2013 10:41 AM | | | | | PST | | + + + + + | Pulse | 58 | 10/13/2013 10:41 AM | | | | | PST | | + + + + + | Temperature | 36.6 C (97.8 F) | 10/13/2013 10:41 AM | | | | | PST | | + + + + + | Respiratory Rate | 16 | 10/13/2013 10:41 AM | | | | | PST | | + + + + + | Oxygen Saturation | 97% | 10/13/2013 10:41 AM | | | | | PST | | + + + + + | Inhaled Oxygen | - | - | | | Concentration | | | | + + + + + | Weight | 65.4 kg (144 lb 3.2 | 10/13/2013 10:41 AM | | | | oz) | PST | | + + + + + | Height | 166.4 cm (5' 5.5") | 10/13/2013 10:41 AM | | | | | PST | | + + + + + | Body Mass Index | 23.63 | 10/13/2013 10:41 AM | | | | | PST | | + + + + + documented in this encounter Progress Notes Jignesh Benjamin MD - 10/13/2013 10:32 AM PST Patient Identification: Yen Corea 1940 Is a 73 y.o. female , a patient o lucía Neville. Patient is here with her . S: Pre op for Microvenectomy Physician notes: Patient has concerns regarding her left knee. She is trying To sort out the pain from varicosities and the pain from right knee swelling. States she is seeing Dr Bobby marino. He has giving her injections in the right knee. RIGHT knee hurts when she walks on i t. Especially on the medial side. She notes no pain in varicosities, no firm or red vein s. Past Medical History She has a past medical history of Asthma; Allergic rhinitis; Sprained ankle; Fractured nose ; BRONCHITIS, OBSTRUCTIVE CHRONIC; and Osteopenia. Past Surgical History She Past Surgical History Procedure Date Anastacio and bso Appendectomy Thyroidectomy Tonsillectomy Allergies Allergen Reactions Amoxicillin Oxycodone Medications: She has a current medication list which includes the following prescription(s): advair disk us, proair hfa, thyroid, buspirone, ykvquoo-fuozprmyu-cbol, caltrate 600+d, cholecalciferol, chad, fluticasone, atrovent hfa, acidophilus, levothyroxine, levothyroxine, claritin, mult ivitamin, nitrofurantoin, omeprazole, potassium chloride, theophylline, triamterene-hydrochl orothiazide, and accolate. Outpatient Encounter Prescriptions as of 10/13/2013 Medication Sig Dispense Refill ADVAIR DISKUS 250-50 MCG/DOSE diskus inhaler inhale 1 dose by mouth twice a day 60 eac h 11 albuterol (PROAIR HFA) 90 mcg/puff inhaler 2 puffs every 4 hours as needed for shortnes s of breath ARMOUR THYROID PO Take 1 tablet by mouth Daily. busPIRone (BUSPAR) 10 MG tablet Take 5 mg by mouth every morning. EWQJAQB-[id number]-RCIB PO TABS. 2 tablets by mouth daily [...] per tablet 1 tablet by mouth daily nitrofurantoin (MACROBID) 100 mg capsule Take 100 mg by mouth 2 times daily. omeprazole (PRILOSEC) 20 mg capsule Take 20 [...] any smokeless tobacco history on file. PE: LE: RIGHT knee, joint slightly swollen, Tender medial right knee. 4-8 Mm serpiginous va ricosity right knee and anterior fonseca. Soft and non-tender. LEFT leg 4-6 Mm anterior fonseca varicosity. Soft and non-tender. IMP: RIGHT knee pain Due to internal knee derangement or arthritis. Pain is not due to v aricosity. PLAN: Recommend patient follow with Dr Koehler for right knee pain treatment prior to microv enectomy for varicosities. Patient will return when she is ready to proceed with bilateral microvenectomy (in procedure room, local anesthesia). Jignesh Benjamin MD, FACS Vascular and General [...] [place] | | | | | | [address] | | | | | | | | +--------+---------+ + + + documented as of this encounter Visit Diagnoses + + | Diagnosis | + + | Varicose veins of lower extremities with other complications - Primary | + + documented in this encounter
--- OUTSIDE RECORDS SUMMARY | ~2020-01-11 | XMS | Encounter Summary ---
Demographics + + + | Address | [address] | | | [place] [address] | + + + | Home Phone | | + + + | Preferred Language | Unknown | + + + | Marital Status | | + + + | Alevism Affiliation | Unknown | + + + | Race | Unknown | + + + | Ethnic Group | Unknown | + + + Author + + + | Author | [facility] | | | and [place] | + + + | Organization | [facility] | | | and [place] | + + + | Address | Unknown | + + + | Phone | Unavailable | + + + Support + + + + + | Name | Relationship | Address | Phone | + + + + + | Alejandro Corea | ECON | [address] | | | | | [place] [address] | | + + + + + Care Team Providers + +------+ + | Care Scrap Crusher Name | Role | Phone | + +------+ + | Avel Neville MD | PCP | | + +------+ + Reason for Visit +---------+ + | Reason | Comments | +---------+ + | Results | nocturnal oximetry | +---------+ + Encounter Details +--------+ + + + + | Date | Type | Department | Care Team | Description | +--------+ + + + + | 07/13/ | Telephone | [facility] | [place], | Results (nocturnal | | 2014 | | [address]ULMONARY [address] | Bela Funez MD | oximetry) | | | | [place], | | | | | | [place] [address] | | | | | | [phone] | | | +--------+ + + + [...] | | | | | [place] | | | | | | [address] | | | | | | | | +--------+---------+ + + + documented as of this encounter Visit Diagnoses Not on filedocumented in this encounter"
--- OUTSIDE RECORDS SUMMARY | ~2020-01-11 | XMS | Encounter Summary ---
Demographics + + + | Address | [address] | | | [place] [address] | + + + | Home Phone | | + + + | Preferred Language | Unknown | + + + | Marital Status | | + + + | Protestant Affiliation | Unknown | + + + | Race | Unknown | + + + | Ethnic Group | Unknown | + + + Author + + + | Author | [facility] | | | and [place] | + + + | Organization | [facility] | | | and [place] | + + + | Address | Unknown | + + + | Phone | Unavailable | + + + Support + + + + + | Name | Relationship | Address | Phone | + + + + + | Alejandro Corea | ECON | [address] | | | | | [place] [address] | | + + + + + Care Team Providers + +------+ + | Care Produce Weigher Name | Role | Phone | + [...] Description | +--------+--------+ + + + | 12/21/ | Refill | [facility] [place] | Silviaenstein, | Medication Refill | | 2016 | | PULMONARY [address] | Bela Funez MD | | | | | [place], | | | | | | [place] [address] | | | | | | [phone] | | | +--------+--------+ + + + [...] [place] | | | | | | [address] | | | | | | | | +--------+---------+ + + + documented as of this encounter Visit Diagnoses Not on filedocumented in this encounter"
--- OUTSIDE RECORDS SUMMARY | ~2020-01-11 | XMS | Encounter Summary ---
Demographics + + + | Address | [address] | | | [place] [address] | + + + | Home Phone | | + + + | Preferred Language | Unknown | + + + | Marital Status | | + + + | Jewish Affiliation | Unknown | + + + [...] + | Alejandro Corea | ECON | [address] | | | | | [place] [address] | | + + + + + Care Team Providers + +------+ + | Care Chief Yeoman Name | Role | Phone | + [...] Description | +--------+--------+ + + + | 06/23/ | Refill | [facility] [place] | NuñezPerry | Medication Refill | | 2014 | | [address]ULMON[address] | [address] | | | | | [place], | [place], [place] | | | | | [place] [address] | [address] | | | | | [phone] | | | +--------+--------+ + + + [...] | | | | | [place], [place] | | | | | | [address] | | | | | | | | +--------+---------+ + + + documented as of this encounter Visit Diagnoses Not on filedocumented in this encounter"
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
--- OUTSIDE RECORDS SUMMARY | ~2020-01-11 | XMS | Encounter Summary ---
Demographics + + + | Address | [address] | | | [place] [address] | + + + | Home Phone | | + + + | Preferred Language | Unknown | + + + | Marital Status | | + + + | Zoroastrianism Affiliation | Unknown | + + + | Race | Unknown | + + + | Ethnic Group | Unknown | + + + Author + + + | Author | [facility] | | | and [place] | + + + | Organization | [facility] | | | and [place] | + + + | Address | Unknown | + + + | Phone | Unavailable | + + + Support + + + + + | Name | Relationship | Address | Phone | + + + + + | Aljeandro Corea | ECON | [address] | | | | | [place] [address] | | + + + + + Care Team Providers + +------+ + | Care Nursing Program Coordinator Name | Role | Phone | + +------+ + | Avel Neville MD | PCP | | + +------+ + Encounter Details +--------+ + + + + | Date | Type | Department | Care Team | Description | +--------+ + + + + | 09/19/ | Abstract | [facility] [place] | Rene Reed, | | | 2014 | | NEUROSURGERY [address] | PA-C [address] | | | | | [address] | [address] | | | | | [place] | [place] [address] | | | | | [address] | [phone] | | | | | [phone] | | | +--------+ + + + [...] | 7 Standard drinks | 7.0 | | | | or equivalent | | [...] | | | | | [place] | | | | | | [id number] | | | | | | | | +--------+---------+ + + + documented as of this encounter Visit Diagnoses Not on filedocumented in this encounter"
--- OUTSIDE RECORDS SUMMARY | ~2020-01-11 | XMS | Encounter Summary ---
Demographics + + + | Address | [address] | | | [place] [address] | + + + | Home Phone | | + + + | Preferred Language | Unknown | + + + | Marital Status | | + + + | Yarsani Affiliation | Unknown | + + + | Race | Unknown | + + + | Ethnic Group | Unknown | + + + Author + + + | Author | [facility] | | | and [place] | + + + | Organization | [facility] | | | and [place] | + + + | Address | Unknown | + + + | Phone | Unavailable | + + + Support + + + + + | Name | Relationship | Address | Phone | + + + + + | Alejandro Corea | ECON | [address] | | | | | [place] [address] | | + + + + + Care Team Providers + +------+ + | Care Door Fitter Name | Role | Phone | + +------+ + PCP | Unavailable | + +------+ + Encounter Details +--------+ + + + + | Date | Type | Department | Care Team | Description | +--------+ + + + + | 10/28/ | [facility] | [facility] | Perry Nuñez | | | 2001 | Encounter | MED CTR GENERIC OP | [place] [address] [address] [address] | | | | | CONV DEPT [address] | [place], [place] | | | | | [place], | [address] | | | | | [place] [address] | | | | | | [phone] | | | +--------+ + + + [...] | | | | | | [facility] | | | | | | [address] | | | | | | | | +--------+---------+ + + + documented as of this encounter Visit Diagnoses Not on filedocumented in this encounter"
--- OUTSIDE RECORDS SUMMARY | ~2020-01-11 | XMS | Encounter Summary ---
Demographics + + + | Address | [address] | | | [place] [address] | + + + | Home Phone | | + + + | Preferred Language | Unknown | + + + | Marital Status | | + + + | Confucianist Affiliation | Unknown | + + + | Race | Unknown | + + + | Ethnic Group | Unknown | + + + Author + + + | Author | [facility] | | | and [place] | + + + | Organization | [facility] | | | and [place] | + + + | Address | Unknown | + + + | Phone | Unavailable | + + + Support + + + + + | Name | Relationship | Address | Phone | + + + + + | Alejandro Corea | ECON | [address] | | | | | [place] [address] | | + + + + + Care Team Providers + +------+ + | Care Welder Operator Name | Role | Phone | [...] Description | +--------+--------+ + + + | 02/03/ | Refill | [facility] [place] | Silviaenstein, | Medication Refill | | 2016 | | PULMONARY [address] | Bela Funez MD | | | | | [place], | | | | | | [place] [address] | | | | | | [phone] | | | +--------+--------+ + + + [...] [place] | | | | | | [address] | | | | | | | | +--------+---------+ + + + documented as of this encounter Visit Diagnoses Not on filedocumented in this encounter"
--- OUTSIDE RECORDS SUMMARY | ~2020-01-11 | XMS | Encounter Summary ---
Demographics + + + | Address | [address] | | | [place] [address] | + + + | Home Phone | | + + + | Preferred Language | Unknown | + + + | Marital Status | | + + + | Worship Affiliation | Unknown | + + + | Race | Unknown | + + + | Ethnic Group | Unknown | + + + Author + + + | Author | [facility] | | | and [place] | + + + | Organization | [facility] | | | and [place] | + + + | Address | Unknown | + + + | Phone | Unavailable | + + + Support + + + + + | Name | Relationship | Address | Phone | + + + + + | Alejandro Corea | ECON | [address] | | | | | [place] [address] | | + + + + + Care Team Providers + +------+ + | Care Cable Ferryboat Operator Name | Role | Phone | + +------+ + | Avel Neville MD | PCP | | + +------+ + Encounter Details +--------+ + + + + | Date | Type | Department | Care Team | Description | +--------+ + + + + | 07/06/ | Orders Only | [facility] [place] | Jen Freeman, | COPD (chronic | | 2014 | | PULMONARY [address] | RN | obstructive | | | | [place], | | pulmonary disease) | | | | [place] [address] | | (HCC) | | | | [phone] | | | +--------+ + + + [...] | | | | | [place], [place] | | | | | | [address] | | | | | | | | +--------+---------+ + + + documented as of this encounter Visit Diagnoses + + | Diagnosis | + + | COPD (chronic obstructive pulmonary disease) (HCC) Chronic airway obstruction, not | | elsewhere classified | + + documented in this encounter"
--- OUTSIDE RECORDS SUMMARY | ~2020-01-11 | XMS | Encounter Summary ---
Demographics + + + | Address | [address] | | | [place] [address] | + + + | Home Phone | | + + + | Preferred Language | Unknown | + + + | Marital Status | | + + + | Sabianism Affiliation | Unknown | + + + | Race | Unknown | + + + | Ethnic Group | Unknown | + + + Author + + + | Author | [facility] | | | and [place] | + + + | Organization | [facility] | | | and [place] | + + + | Address | Unknown | + + + | Phone | Unavailable | + + + Support + + + + + | Name | Relationship | Address | Phone | + + + + + | Alejandro Corea | ECON | [address] | | | | | [place] [address] | | + + + + + Care Team Providers + +------+ + | Care Therapeutic Radiologist Name | Role | Phone | + [...] Description | +--------+--------+ + + + | 11/22/ | Refill | [facility] [place] | JoaquinPerry | Medication Refill | | 2012 | | [address]ULMONARY [address] | [place] [address] [address] | | | | | [place], | [place], [place] | | | | | [place] [address] | [address] | | | | | [phone] | | | +--------+--------+ + + + Social History + +-------+ [...] [place] | | | | | | [address] | | | | | | | | +--------+---------+ + + + documented as of this encounter Visit Diagnoses Not on filedocumented in this encounter"
--- OUTSIDE RECORDS SUMMARY | ~2020-01-11 | XMS | Encounter Summary ---
Demographics + + + | Address | [address] | | | [place] [address] | + + + | Home Phone [...] + | Alejandro Corea | ECON | [address] | | | | | [place] [address] | | + + + + + Care Team Providers + +------+ + | Care Social Media Marketer Name | Role | Phone | + [...] Description | +--------+--------+ + + + | 01/22/ | Refill | [facility] [place] | NuñezPerry | Medication Refill | | 2014 | | [address]ULMONARY [address] | [address] [address] | | | | | [place], | [place], [place] | | | | | [place] [address] | [address] | | | | | [phone] | | | +--------+--------+ + + + [...] | | | | | [place], [place] | | | | | | [address] | | | | | | | | +--------+---------+ + + + documented as of this encounter Visit Diagnoses Not on filedocumented in this encounter"
--- OUTSIDE RECORDS SUMMARY | ~2020-01-11 | XMS | Encounter Summary ---
Demographics + + + | Address | [address] | | | [place] [address] | + + + | Home Phone | | + + + | Preferred Language | Unknown | + + + | Marital Status | | + + + | Mormon Affiliation | Unknown | + + + | Race | Unknown | + + + | Ethnic Group | Unknown | + + + Author + + + | Author | [facility] | | | and [place]ey | + + + | Organization | [facility] | | | and [place] | + + + | Address | Unknown | + + + | Phone | Unavailable | + + + Support + + + + + | Name | Relationship | Address | Phone | + + + + + | Alejandro Corea | ECON | [address] | | | | | [place] [address] | | + + + + + Care Team Providers + +------+ + | Care Pickling Drum Operator Name | Role | Phone | + +------+ + | Avel Neville MD | PCP | | + +------+ + Reason for Visit Service/Procedure (Routine) +--------+--------+ + + + + | Status | Reason | Specialty | Diagnoses / | Referred By | Referred To | | | | | Procedures | Contact | Contact | +--------+--------+ + + + + | Closed | | Radiology | Diagnoses | | [facility] | | | | | Lumbar | Rebecca, | [address] | | | | | radiculopath | Aristides Moran MD | [place], | | | | | y | [address] | [place] | | | | | Procedures | [place] | [address] | | | | | [place] INJECT | [place] | Phone: | | | | | ANES/STEROID | [address] | [phone] | | | | | FORAMEN | Phone: | Fax: | | | | | LUMBAR/SACRA | [phone] | [phone] | | | | | [address] IM[address] | Fax: | | | | | | GUIDE ,1 | [phone] | | | | | | LEVEL [place] | | | | | | | TRIAMCINOLON | | | | | | | E ACET INJ | | | | | | | NOS, 10 MG | | | | | | | Bilateral | | | | | | | L5-S1 TFESI | | | | | | | for lumbar | | | | | | | radiculopath | | | | | | | y | | | +--------+--------+ + + + + Encounter Details +--------+ + + + + | Date | Type | Department | Care Team | Description | +--------+ + + + + | 12/10/ | Hospital | [facility] | Danette, | Bilateral low back | | 2016 | Encounter | MED CTR XRAY [address] | [address] | pain with sciatica, | | | | [address] | [address] | sciatica laterality | | | | [place] [address] | [place] [address] | unspecified; Spinal | | | | [phone] | [phone] | stenosis of lumbar | | | | | | region; Lumbar | | | | | Editorial Director, [facility] | radiculopathy | | | | | [place] | | +--------+ + + + + [...] this encounter Last Filed Vital Signs + +---------+ + + | Vital Sign | Reading | Time Taken | Comments | + +---------+ + + | Blood Pressure | 140/74 | 12/11/2015 2:52 PM | | | | | PDT | | + +---------+ + + | Pulse | 62 | 12/11/2015 2:52 PM | | | | | PDT | | + +---------+ + + | Temperature | - | - | | + +---------+ + + | Respiratory Rate | - | - | | + +---------+ + + | Oxygen Saturation | - | - | | + +---------+ + + | Inhaled Oxygen | - | - | | | Concentration | | | | + +---------+ + + | Weight | - | - | | + +---------+ + + | Height | - | - | | + +---------+ + + | Body Mass Index | - | - | | + +---------+ + + documented in this encounter Medications at Time of Discharge [...] + +---------+ + + | | Take 5-10 mLs by | | 0 | | | | promethazine-codeine | mouth 4 times daily | | | | | | (PHENERGAN WITH | as needed for Cough. | | | | | | CODEINE) 6.25-10 | | | | | | | mg/5 mL syrup | | | | | | + + + +---------+ + + | thyroid (ARMOUR) | Take 15 mg [...] | 0 | 06/03/20 | | | DIZCEDC-YAZILEQAR-CJ | mouth daily | | | 12 [...] +---------+ + + | omeprazole | Take 40 mg by mouth | | 0 | | | | (PRILOSEC) 40 MG | every morning | | | | 7 | | capsule | (before breakfast). | [...] | | | | | [place], [place] | | | | | | [address] | | | | | | | | +--------+---------+ + + + documented as of this encounter Procedures + +--------+ + + + | Procedure Name | Priori | Date/Time | Associated Diagnosis | Comments | | | ty | | | | + +--------+ + + + | FL EPIDURAL STEROID | Routin | 12/11/2015 | Bilateral low back | Results for this | | INJECTION LUMBAR | e | 2:45 PM | pain with sciatica, | procedure are in the | | TRANSFORAMINAL | | PDT | sciatica laterality | results section. | | | | | unspecified Spinal | | | | | | stenosis of lumbar | | | | | | region Lumbar | | | | | | radiculopathy | | + +--------+ + + + documented in this encounter Results FL MOIZ Lumbar Transforaminal (12/11/2015 2:45 PM PDT) + + | Specimen | + + | | + + + + + | Narrative | Performed At | + + + | 12/11/2015 Bilateral Transforaminal Epidural Steroid Injections | [facility] | | Diagnosis: Lumbar radiculopathy ICD-10 Code M54.16 Yen | [facility] | | Rylee Corea presents to the fluoroscopy suite for [facility] | | fluoroscopically-guided bilateral L5-S1 transforaminal epidural [...] | + + + + + | [facility] | [address] | [place] | [phone] | | [facility] | | [address] | | | - IMAGING | | | | + + + + + documented in this encounter Visit Diagnoses + + | Diagnosis | + + | Bilateral low back pain with sciatica, sciatica laterality unspecified | + + | Spinal stenosis of lumbar region Spinal stenosis, lumbar region, without neurogenic | | claudication | + + | Lumbar radiculopathy Thoracic or lumbosacral neuritis or radiculitis, unspecified | + + documented in this encounter Administered Medications + +--------+ +-------+------+------+ | Medication Order | MAR | Action | Dose | Rate | Site | | | Action | Date | | | | + +--------+ +-------+------+------+ | betamethasone (CELESTONE | Given | 12/11/19 | 12 mg | | | | SOLUSPAN) injection 12 mg 12 mg, | | 16 2:45 | | | | | Other, EVERY 24 HOURS INTERVAL, | | PM PDT | | | | | First dose on Thu12/11/15 at | | | | | | | 1415, For 2 doses, Shake well. | | | | | | | Not for IV use., Radiology | | | | | | + +--------+ +-------+------+------+ +---+---+ | | | +---+---+ + +-------+ +-------+---+---+ | iohexol (OMNIPAQUE 300) 300 | Given | 12/11/19 | 2 mLs | | | | mg/mL injection 2 mL 2 mL, | | 16 2:40 | | | | | Other, ONCE PRN, Other, Starting | | PM PDT | | | | | Thu12/11/15 at 1352, For 1 dose, | | | | | | | Radiology | | | | | | + +-------+ +-------+---+---+ +---+---+ | | | +---+---+ + +-------+ +-------+---+---+ | lidocaine (PF) 1% injection 2 | Given | 12/11/19 | 2 mLs | | | | mL 2 mL, Other, ONCE, Tue | | 16 2:45 | | | | | 12/11/15 at 1415, For 1 dose, | | PM PDT | | | | | Radiology | | | | | | + +-------+ +-------+---+---+ +---+---+ | | | +---+---+ + +-------+ +-------+---+ + | lidocaine buffered 1% injection | Given | 12/11/19 | 6 mLs | | Other | | 6 mL 6 mL, Intradermal, ONCE, | | 16 2:38 | | | (Comment | | 12/11/15 at 1415, For 1 dose, | | PM PDT | | | ) | | Radiology | | | | | | + +-------+ +-------+---+ + +---+---+ | | | +---+---+ documented in this encounter"
--- OUTSIDE RECORDS SUMMARY | ~2020-01-11 | XMS | Encounter Summary ---
Demographics + + + | Address | [address] | | | [place] [address] | + + + | Home Phone | | + + + | Preferred Language | Unknown | + + + | Marital Status | | + + + | Buddhist Affiliation | Unknown | + + + [...] + | Alejandro Corea | ECON | [address] | | | | | [place] [address] | | + + + + + Care Team Providers + +------+ + | Care Embosser Operator Name | Role | Phone | [...] Description | +--------+--------+ + + + | 05/13/ | Refill | [facility] [place] | JoaquinPerry | Medication Refill | | 2012 | | PULMONARY [address] | [place] [address] | | | | | [place], | [place], [place] | | | | | [place] [address] | [address] | | | | | [phone] | | | +--------+--------+ + + + [...] [place] | | | | | | [address] | | | | | | | | +--------+---------+ + + + documented as of this encounter Visit Diagnoses Not on filedocumented in this encounter"
--- OUTSIDE RECORDS SUMMARY | ~2020-01-11 | XMS | Encounter Summary ---
Demographics + + + | Address | [address] | | | [place] [address] | + + + | Home Phone | | + + + | Preferred Language | Unknown | + + + | Marital Status | | + + + | Rastafari Affiliation | Unknown | + + + [...] + | Alejandro Corea | ECON | [address] | | | | | [place] [address] | | + + + + + Care Team Providers + +------+ + | Care County Court Judge Name | Role | Phone | + +------+ + | Avel Neville MD | PCP | | + +------+ + Reason for Visit +--------+ + | Reason | Comments | +--------+ + | Other | need for follow up | +--------+ + Encounter Details +--------+ + + + + | Date | Type | Department | Care Team | Description | +--------+ + + + + | 02/03/ | Telephone | [facility] | Silviaenstein, | Other (need for | | 2015 | | PULMONARY [address] | Bela Funez MD | follow up) | | | | [place], | | | | | | [place] [address] | | | | | | [phone] | | | +--------+ + + + [...] | | | | | [place] | | | | | | [address] | | | | | | | | +--------+---------+ + + + documented as of this encounter Visit Diagnoses Not on filedocumented in this encounter"
--- OUTSIDE RECORDS SUMMARY | ~2020-01-11 | XMS | Encounter Summary ---
Demographics + + + | Address | [address] | | | [place] [address] | + + + | Home Phone | | + + + | Preferred Language | Unknown | + + + | Marital Status | | + + + | Adventism Affiliation | Unknown | + + + | Race | Unknown | + + + | Ethnic Group | Unknown | + + + Author + + + | Author | [facility] | | | and [place]ey | + + + | Organization | [facility] | | | and [place] | + + + | Address | Unknown | + + + | Phone | Unavailable | + + + Support + + + + + | Name | Relationship | Address | Phone | + + + + + | Alejandro Corea | ECON | [address] | | | | | [place] [address] | | + + + + + Care Team Providers + +------+ + | Care Tool Shaper Setup Operator Name | Role | Phone | [...] Funez MD | | | | | [place], | | | | | | [place] [address] | | | | | | [phone] | | | +--------+ + + + [...] [place] | | | | | | [address] | | | | | | | | +--------+---------+ + + + documented as of this encounter Visit Diagnoses Not on filedocumented in this encounter"
--- OUTSIDE RECORDS SUMMARY | ~2020-01-11 | XMS | Encounter Summary ---
Demographics + + + | Address | [address] | | | [place] [address] | + + + | Home Phone | | + + + | Preferred Language | Unknown | + + + | Marital Status | | + + + | Jew Affiliation | Unknown | + + + [...] + | Alejandro Corea | ECON | [address] | | | | | [place] [address] | | + + + + + Care Team Providers + +------+ + | Care Deputy Sheriff Chief Name | Role | Phone | + [...] Description | +--------+--------+ + + + | 05/17/ | Refill | [facility] [place] | Joaquin Perry | Medication Refill | | 2013 | | [address]ULMONARY [address] | [address] | | | | | [place], | [place], [place] | | | | | [place] [address] | [address] | | | | | [phone] | | | +--------+--------+ + + + [...] | | | | | [place], [place] | | | | | | [address] | | | | | | | | +--------+---------+ + + + documented as of this encounter Visit Diagnoses Not on filedocumented in this encounter"
--- OUTSIDE RECORDS SUMMARY | ~2020-01-11 | XMS | Encounter Summary ---
Demographics + + + | Address | [address] | | | [place] [address] | + + + | Home Phone | | + + + | Preferred Language | Unknown | + + + | Marital Status | | + + + | Muslim Affiliation | Unknown | + + + [...] + | Alejandro Corea | ECON | [address] | | | | | [place] [address] | | + + + + + Care Team Providers + +------+ + | Care Waste Management Recycling Technician Name | Role | Phone | + +------+ + | Avel Neville MD | PCP | | + +------+ + Reason for Visit +--------+ + | Reason | Comments | +--------+ + | Other | follow up on CT this morning | +--------+ + Encounter Details +--------+---------+ + + + | Date | Type | Department | Care Team | Description | +--------+---------+ + + + | 07/31/ | Office | [facility] [place] | [place], | Moderate persistent | | 2014 | Visit | PULMONARY [address] | Bela Funez MD | asthma without | | | | [place], | | complication | | | | [place] [address] | | (Primary Dx); | | | | [phone] | | Allergic rhinitis | | | | | | due to pollen; | | | | | | Mucopurulent chronic | | | | | | bronchitis ([facility]); | | | | | | Gastroesophageal | | | | | | reflux disease | | | | | | without esophagitis | +--------+---------+ + + + Social History [...] + + + | Blood Pressure | 126/70 | 07/31/2015 8:51 AM | | | | | PST | | + + + + + | Pulse | 64 | 07/31/2015 8:51 AM | | | | | PST | | + + + + + | Temperature | - | - | | + + + + + | Respiratory Rate | 16 | 07/31/2015 8:51 AM | | | | | PST | | + + + + + | Oxygen Saturation | 95% | 07/31/2015 8:51 AM | | | | | PST | | + + + + + | Inhaled Oxygen | - | - | | | Concentration | | | | + + + + + | Weight | 68.5 kg (151 lb) | 07/31/2015 8:51 AM | | | | | PST | | + + + + + | Height | 167.6 cm (5' 6") | 07/31/2015 8:51 AM | | | | | PST | | + + + + + | Body Mass Index | 24.37 | 07/31/2015 8:51 AM | | | | | PST | | + + + + + documented in this encounter Patient Instructions Patient Instructions Bela Eric MD - 07/31/2015 9:42 AM PSTIf the radiologist finds anything else on your CT that warrants a follow up, we will call you. I would eat your large meal at lunch time, and a small dinner. When you get home, go walking on the treadmill. Have a small snack, then limit the gin to 1 -2 ounces in the evening. Instructions for Avoidance of Reflux 1. Elevate the head of your bed about 5 inches, using a cinder block, or other device. 2. Avoid eating about 4 hours before bed. 3. Avoid lying down about 1 hour after eating. 4. Avoid drinking caffeine. 5. Avoid drinking alcohol. 6. Avoid eating fatty or spicy foods. 7. Your largest meal should be at breakfast or lunch, instead of dinner. 8. Avoid large bolus meals, and eat small amounts frequently throughout the day. 9. Take your reflux medication, omeprazole, 30 minutes prior to eating. Change the loratadine to cetirizine 10mg daily. You may need to purchase this over the [facility] ter. I would also try going back up on the Advair to twice daily and see if some of the cough is from your lungs. Consider a [facility] Med Sinus Rinse Kit. It does work very well for post nasal drip and is avai lable over the counter. Saline Nasal Washes: Saline nasal washes help keep the nasal passages open by washing out thick or dried mucus. This simple remedy can help relieve symptoms of allergies, sinusitis, and colds. It also can make the nose feel more comfortable by keeping the mucous membranes moist. You may notice a little burning sensation in your nose the first few times you use the solution, but this us ually gets better in a few days. You can buy premixed salt packets and a squeeze bottle or other sinus rinse products at a [facility] (such as [facility] Med Sinus Rinse Kit). Read and follow the instructions on the label. Use lukewarm distilled or boiled and cooled water. Lean forward over the sink. Put the tip of the squeeze bottle a little way into one of your nostrils. Gently squirt into the nostril. Repeat with the other nostril. Some sneezing and gagging are normal at first. Gently blow your nose. Wipe the bottle tip clean after each use, wash out, and clean according to package directio ns. Use nasal washes gently if you have nosebleeds often. When should you call for help? Watch closely for changes in your health, and be sure to contact your doctor if: You often get nosebleeds. documented in this encounter Progress Notes Bela Eric MD - 07/31/2015 8:54 AM PSTFormatting of this note might be differe nt from the original. Pulmonary Follow Up HPI Yen Corea is a 75 y.o. female patient of Avel Neville here today for follo w up of asthma and chronic bronchitis. At their last visit, we had given her a methylprednisolone injection, which she felt helped a lot. She felt like this helped her get back to her baseline. She is currently on a regimen of Advair 250 mcg 1 inhalation once daily. She was doing twic e daily until she felt better, but cut back to once daily for financial reasons. She is not using her albuterol inhaler and has not used her albuterol nebulizer in a couple of years. S he returns today for routine follow up. She is still having some cough, which she thinks is coming from the post nasal drip. She is brining up mucous some of the time, which is white and clear in color. She has not had any hemoptysis. She has started walking on her treadmill, but not enough to say it is regular yet. Right no w, she is doing 3 times a week, for 30 minutes. She does have symptoms of heartburn or reflux. This is occuring just about every night. She takes omeprazole daily, and then takes Tums after dinner. She is still having symptoms of nasal drainage, mostly post nasal drip. She is not feeling sinus congestion, just the drainage, and then she coughs this up. She is on the Flonase 2 sp rays daily and loratadine 10mg daily. In the past, her nasal drainage has responded better t o allergy medications. This is the time of year her symptoms typically flare up. 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 Social History Main Topics Smoking status: Former Smoker -- 0.70 packs/day for 30 years Types: Cigarettes Quit date: 07/06/1991 Smokeless tobacco: None Alcohol Use: 4.2 oz/week 7 Not specified per week Comment: 1 drink per day Drug Use: No Sexual Activity: None Other Topics Concern None Social History Narrative Lives: in [place] With: her anastasiya Grew up: in [place], [place] Has previously lived in: [place], [place], [place], [place] Exposure to toxic chemicals: yes, not sure of type Exposure to asbestos: no Exposure to tuberculosis: no Has had a PPD or Quantiferon before: yes, last many years ago Has pets at home: 1 cat Has ever owned birds: no Other animal exposures: no Hobbies: art, travel camping, fishing Allergies: Allergies Allergen Reactions Amoxicillin Hives Meperidine Medications: Outpatient Encounter Prescriptions as of 07/31/2015 Medication Sig Dispense Refill albuterol (PROAIR HFA) [...] Take 5 mg by mouth every morning. [id number] PO TABS. 2 tablets by mouth daily [...] facility-administered encounter medications on file as of 07/31/2015. Review of Systems: General: [x]Weight loss/gain (over 10 lbs) []Fever/chills/sweats []Night sweats EENT: []Hearing loss []Vision loss/change [x]Sinus congestion/nasal drainage []Nosebleeds [ x]Hoarseness Cardiac: []Chest pain []Palpitations/heart racing [x]Swelling of legs/ankles []Waking up at night short of breath []Difficulty sleeping flat Gastrointestinal: []Nausea/vomiting []Difficulty swallowing [x]Heartburn/acid reflux []Loss of appetite []Ab dominal pain Urologic: []Blood in urine []Frequent urination at night []Burning/painful urination []Difficulty wit h urination Objective BP 126/70 mmHg | Pulse 64 | Resp 16 | Ht 1.676 m (5' 6") | Wt 68.493 kg (151 lb) | BMI 24.3 8 kg/m2 | SpO2 95% General Appearance: Alert, cooperative, no distress, appears younger than stated age Head: Normocephalic, without obvious abnormality, atraumatic Eyes: PERRL, conjunctiva clear, no scleral icterus, EOM's intact Ears: Normal TM's, external auditory canals, normal acuity Nose: Nares normal, septum midline, mucosa edematous with some clear drainage Mouth: No oral lesions or exudate Neck: Supple, symmetrical, no adenopathy Lungs: No accessory muscle use, breath sounds are slightly diminished bilaterally with so me prolongation of the expiratory phase, no wheezes, crackles or rhonchi Chest Wall: No deformity Heart: Regular rate and rhythm, no murmur, rub or gallop Abdomen: Soft, non-tender, non-distended Extremities: No cyanosis, clubbing, or edema Pulses: Radial pulses 2+ and symmetric Skin: Warm and dry Lymph nodes: Cervical and supraclavicular nodes normal Data: Chest CT scan was done prior to clinic today and was reviewed and interpreted in clinic toabiodun quijano. It shows a borderline enlarged paratracheal lymph node that does not meet criteria for p athologic enlargement at 9.7mm in size. No significant nodules were seen, though there are a few calcified granulomas. Overnight oximetry was done on July 09, 2015 on room air and was reviewed and interprete d in clinic today. It shows she spent 0.1 minutes with a saturation less than 88%. Avle Neville's notes were reviewed in clinic today. Immunization History Administered Date(s) Administered INFLUENZA, TRIVALENT PRESERVATIVE FREE (PED/ADOL/ADULT) 05/05/2015 PNEUMOCOCCAL CONJUGATE 13-VALENT (PCV13) 05/05/2015 Assessment ICD-10-CM ICD-9-CM 1. Moderate persistent asthma without complication J45.40 493.90 On Advair, but has dropped back to once daily. Her cough and sensation of mucous could be from this as well, so I aske d her to reincrease to twice daily for now. 2. Allergic rhinitis due to pollen J30.1 477.0 Still having sinus drainage. Unclear if this is allergic, vasomotor or possibly LPRD as she has symptoms to suggest each. I suggested a sinus rinse, but she does not think this is appealing. I suggested trying to work to control her reflux, and in addition, change her loratadine to cetirizine. 3. Mucopurulent chronic bronchitis (HCC) J41.1 491.1 On Advair, but only using once daily. Her increased cough may be related in part to her using this less frequently. CT scan shows very minor bronchial wall thickening. 4. Gastroesophageal reflux disease without esophagitis K21.9 530.81 On medication. We also discussed lifestyle modification, namely: time of largest meal, decreasing alcohol, and elev ating the head of their bed. Plan 1. Does not need routine CT scan follow up. 2. Lifestyle modification instructions for avoidance of reflux provided. 3. Limit alcohol intake. 4. Eat largest meal for lunch not dinner. 5. Resume regular walking. 6. Change the loratadine to cetirizine 10mg daily. 7. Increase the Advair back to twice daily. 8. Consider a [employer] Med Sinus Rinse Kit. Instructions provided. She was advised to call if new pulmonary symptoms were to develop. Return to clinic in 4 months, or sooner with concerns. CC: Avel Neville Portions of this report were transcribed using voice recognition software. Every effort wa s made to ensure accuracy; however, inadvertent computerized detective captain errors may be pre sent. documented in this encounter Plan of Treatment +--------+---------+ + + + | Date | Type | Specialty | Care Team | Description | +--------+---------+ + + + | 02/14/ | Office | Cardiology | Jon [place], | | | 2019 | Visit | | MD Pooja LEAL | | | | | | [place] | | | | | | [id number] | | | | | | | | +--------+---------+ + + + documented as of this encounter Visit Diagnoses + + | Diagnosis | + + | Moderate persistent asthma without complication - Primary Unspecified asthma | + + | Allergic rhinitis due to pollen | + + | Mucopurulent chronic bronchitis (HCC) Mucopurulent chronic bronchitis | + + | Gastroesophageal reflux disease without esophagitis Esophageal reflux | + + documented in this encounter
--- OUTSIDE RECORDS SUMMARY | ~2020-01-11 | XMS | Encounter Summary ---
Demographics + + + | Address | [address] | | | [place] [address] | + + + | Home Phone | | + + + | Preferred Language | Unknown | + + + | Marital Status | | + + + | Yarsani Affiliation | Unknown | + + + | Race | Unknown | + + + | Ethnic Group | Unknown | + + + Author + + + | Author | [facility] | | | and [place] | + + + | Organization | [facility] | | | and [place] | + + + | Address | Unknown | + + + | Phone | Unavailable | + + + Support + + + + + | Name | Relationship | Address | Phone | + + + + + | Alejandro Corea | ECON | [address] | | | | | [place] [address] | | + + + + + Care Team Providers + +------+ + | Care Appeals Coordinator Name | Role | Phone | + +------+ + PCP | Unavailable | + +------+ + Encounter Details +--------+ + + + + | Date | Type | Department | Care Team | Description | +--------+ + + + + | 06/30/ | Abstract | [facility] | Doctor | | | 2011 | | Medicine [place] [address] | | | | | | [facility] | | | | | | [address] [place] | | | | | | [address] | | | | | | [phone] | | | +--------+ + + + [...] | | | | | [place], [place] | | | | | | [address] | | | | | | | | +--------+---------+ + + + documented as of this encounter Visit Diagnoses Not on filedocumented in this encounter"
--- OUTSIDE RECORDS SUMMARY | ~2020-01-11 | XMS | Encounter Summary ---
Demographics + + + | Address | [address] | | | [place] [address] | + + + | Home Phone | | + + + | Preferred Language | Unknown | + + + | Marital Status | | + + + | Mormonism Affiliation | Unknown | + + + | Race | Unknown | + + + | Ethnic Group | Unknown | + + + Author + + + | Author | [facility] | | | and [place] | + + + | Organization | [facility] | | | and [place] | + + + | Address | Unknown | + + + | Phone | Unavailable | + + + Support + + + + + | Name | Relationship | Address | Phone | + + + + + | Alejandro Corea | ECON | [address] | | | | | [place] [address] | | + + + + + Care Team Providers + +------+ + | Care Radiation Protection Engineer Name | Role | Phone | + +------+ + | Avel Neville MD | PCP | | + +------+ + Encounter Details +--------+ + + + + | Date | Type | Department | Care Team | Description | +--------+ + + + + | 08/08/ | Orders Only | [facility] [place] | Alex Artis, | Back pain, | | 2014 | | NEUROSURGERY [address] | DO [address] | unspecified back | | | | [address] | [address] [place], [place] | pain laterality, | | | | [place], [place] | [address] | unspecified location | | | | [address] | | (Primary Dx) | | | | [phone] | | | +--------+ + + + [...] | | | | | [place] | | | | | | [address] | | | | | | | | +--------+---------+ + + + + +---------+--------+ + + | Name | Type | Priori | Associated Diagnoses | Order Schedule | | | | ty | | | + +---------+--------+ + + | XR Lumbar Spine 4 + | Imaging | Routin | Back pain | Expected: | | Vw | | e | | 08/08/2015, Expires: | | | | | | 08/08/2016 | + +---------+--------+ + + documented as of this encounter Visit Diagnoses + + | Diagnosis | + + | Back pain, unspecified back pain laterality, unspecified location - Primary | + + documented in this encounter"
--- OUTSIDE RECORDS SUMMARY | ~2020-01-11 | XMS | Encounter Summary ---
Demographics + + + | Address | [address] | | | [place] [address] | + + + | Home Phone | | + + + | Preferred Language | Unknown | + + + | Marital Status | | + + + | Yazidi Affiliation | Unknown | + + + | Race | Unknown | + + + | Ethnic Group | Unknown | + + + Author + + + | Author | [facility] | | | and [place] | + + + | Organization | [facility] | | | and [place] | + + + | Address | Unknown | + + + | Phone | Unavailable | + + + Support + + + + + | Name | Relationship | Address | Phone | + + + + + | Alejandro Corea | ECON | [address] | | | | | [place] [address] | | + + + + + Care Team Providers + +------+ + | Care Hog Trader Name | Role | Phone | + [...] | +--------+ + + + + | 07/11/ | Telephone | [facility] | Silviaenstein, | Medication Refill | | 2014 | | [address]ULMONARY [address] | Bela Funez MD | | | | | [place], | | | | | | [place] [address] | | | | | | [phone] | | | +--------+ + + + [...] [place] | | | | | | [address] | | | | | | | | +--------+---------+ + + + documented as of this encounter Visit Diagnoses Not on filedocumented in this encounter"
--- OUTSIDE RECORDS SUMMARY | ~2020-01-11 | XMS | Encounter Summary ---
Demographics + + + | Address | [address] | | | [place] [address] | + + + | Home Phone | | + + + | Preferred Language | Unknown | + + + | Marital Status | | + + + | Mormonism Affiliation | Unknown | + + + | Race | Unknown | + + + | Ethnic Group | Unknown | + + + Author + + + | Author | [facility] | | | and [place] | + + + | Organization | [facility] | | | and [place] | + + + | Address | Unknown | + + + | Phone | Unavailable | + + + Support + + + + + | Name | Relationship | Address | Phone | + + + + + | Alejandro Corea | ECON | [address] | | | | | [place] [address] | | + + + + + Care Team Providers + +------+ + | Care Aeronautics Teacher Name | Role | Phone | + +------+ + PCP | Unavailable | + +------+ + Encounter Details +--------+ + + + + | Date | Type | Department | Care Team | Description | +--------+ + + + + | 04/04/ | Abstract | [facility] [place] | Perry Nuñez | | | 2012 | | PULMONARY [address] | MD Eunice [address] | | | | | [place], | [place], [place] | | | | | [place] [address] | [address] | | | | | [phone] | | | +--------+ + + + [...] | | | | | [place] | | | | | | [address] | | | | | | | | +--------+---------+ + + + documented as of this encounter Visit Diagnoses Not on filedocumented in this encounter"
--- OUTSIDE RECORDS SUMMARY | ~2020-01-11 | XMS | Encounter Summary ---
Demographics + + + | Address | [address] | | | [place] [address] | + + + | Home Phone | | + + + | Preferred Language | Unknown | + + + | Marital Status | | + + + | Jew Affiliation | Unknown | + + + | Race | Unknown | + + + | Ethnic Group | Unknown | + + + Author + + + | Author | [facility] | | | and [place] | + + + | Organization | [facility] | | | and [place] | + + + | Address | Unknown | + + + | Phone | Unavailable | + + + Support + + + + + | Name | Relationship | Address | Phone | + + + + + | Alejandro Corea | ECON | [address] | | | | | [place] [address] | | + + + + + Care Team Providers + +------+ + | Care Upholstery Repairer Name | Role | Phone | + [...] Description | +--------+--------+ + + + | 02/17/ | Refill | [facility] [place] | Silviaenstein, | Medication Refill | | 2016 | | [address]ULMONARY [address] | Bela Funez MD | | | | | [place], | | | | | | [place] [address] | | | | | | [phone] | | | +--------+--------+ + + + [...] [place] | | | | | | [address] | | | | | | | | +--------+---------+ + + + documented as of this encounter Visit Diagnoses Not on filedocumented in this encounter"
[~2020-01-11 17:25] MED LIST: ADVAIR 250-501 EACH INH; ALBUTEROL2.5 MG/0.5 INH; ARMOUR THYROID15 MG PO; ASPIRIN EC81 MG PO; ASPIRIN325 MG PO; BUSPIRONE HCL10 MG PO; CALCIUM + D3 E1 EACH PO; CEPACOL SORE T1 EAC5 MM; CRANBERRY300 MG PO; ESTRADIOL0.5 MG PO; FLUTICASONE PRO16 GM NS; FLUZONE HI180 MCG/07 IM; HYDROCODON-ACE1 EAC8 PO; HYDROMORPHONE HC4 MG PO; KETOROLAC TROME10 MG PO; KLOR-CON 1010 MEQ PO; LEVOTHYROXINE112 MCG PO; MIRALAX17 GM PO; MONTELUKAST SOD10 MG PO; OMEPRAZOLE20 MG PO; POTASSIUM CHLO10 MEQ PO; PROAIR HFA8.5 GM INH; PROMETH-CODEIN 65 ML PO; SENNA8.6 MG PO; THEOPHYLLINE A300 MG PO; TRIAMTERENE-HC1 EAC2 PO; XARELTO10 MG PO; [UNRECOGNIZED DRUG - OTHER] TP
--- NOTE | 2020-01-11 22:03 | EKG ---
[facility] [address] [facility] [place] [address] Signed Normal sinus rhythm Left anterior fascicular block Anterolateral infarct (cited on or before 11-JAN-2020) Abnormal ECG When compared with ECG of 17-JUL-2016 21:24, Questionable change in initial forces of Lateral leads T wave amplitude has increased in Inferior leads Confirmed by TESS CALVIN MD ([id number]) on 01/11/2020 10:02:49 PM Electronically Signed By: TESS CALVIN MD 01/11/202202 PATIENT NAME: REINALDO HAWKINS Electrocardiogram DATE OF : 44 PHYSICIAN: TESS CALVIN MD REPORT #: [id number] REPORT IS CONFIDENTIAL AND NOT TO BE RELEASED WITHOUT AUTHORIZATION
== END 2020-01-11 19:50 | disposition home or self-care (01) ==
LOC: ED 17:25
DX: T48.6X1A Poisoning by antiasthmatics, accidental (unintentional), initial encounter (principal); E87.6 Hypokalemia; J44.9 Chronic obstructive pulmonary disease, unspecified; I10 Essential (primary) hypertension; Z88.0 Allergy status to penicillin; Z88.5 Allergy status to narcotic agent; Z79.899 Other long term (current) drug therapy
CPT/HCPCS: 80048; 93005; 93010; 99284-25

== ENCOUNTER 2020-08-08 22:19 | Emergency (ER) | payer MEDICARE, OTHER ==
[~2020-08-08] VITALS: Ht 167.6 cm; Wt 62.1 kg
[~2020-08-08 22:19] MED LIST changes: +DYRENIUM50 MG PO; +FLONASE ALLERG9.9 ML NAS; +HYDROCODON-ACE1 EA11 PO; +LEVOTHYROXINE100 MCG PO; +LORATADINE10 MG PO; +MOTRIN IB200 MG PO; +PRILOSEC OTC20 MG PO; +PROBIOTIC1 EAC5 PO; +TYLENOL EXTRA500 MG PO; +VITAMIN D325 MCG PO; +ZINC50 M1 PO
--- NOTE | 2020-08-09 12:37 | EKG ---
[facility] [address] [facility] [place] [address] Signed Normal sinus rhythm Left axis deviation Anterolateral infarct (cited on or before 11-JAN-2020) Abnormal ECG When compared with ECG of 02-AUG-2020 11:49, Questionable change in initial forces of Anterolateral leads Confirmed by TESS CALVIN MD ([id number]) on 08/09/2020 12:37:28 PM Electronically Signed By: TESS CALVIN MD 08/09/20 1237 PATIENT NAME: REINALDO HAWKINS Electrocardiogram DATE OF : 44 PHYSICIAN: TESS CALVIN MD REPORT #: [id number] REPORT IS CONFIDENTIAL AND NOT TO BE RELEASED WITHOUT AUTHORIZATION
== END 2020-08-09 01:50 | disposition home or self-care (01) ==
LOC: ED 22:19
DX: U07.1 COVID-19 (principal); T81.89XA Other complications of procedures, not elsewhere classified, initial encounter; J44.9 Chronic obstructive pulmonary disease, unspecified; I10 Essential (primary) hypertension; Z88.0 Allergy status to penicillin; Z88.5 Allergy status to narcotic agent; Z88.8 Allergy status to other drugs, medicaments and biological substances; Z79.899 Other long term (current) drug therapy
CPT/HCPCS: 71045; 80053; 85025; 93005; 93010; 99285-25; C9803; U0003

== ENCOUNTER 2020-08-14 15:01 | Emergency (ER) | payer MEDICARE, OTHER ==
[~2020-08-14] VITALS: Ht 167.6 cm; Wt 61.2 kg
--- OUTSIDE RECORDS SUMMARY | 2020-08-14 15:04 | XMS ---
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 Lillian has no Care Guidelines for this patient. [place] VISIT COUNT (12 MO.) 3 [facility] [place] [facility] TOTAL 3 NOTE: Visits indicate total known visits. ED/C VISIT TRACKING (12 MO.) 08/14/2020 15:[address] [facility] [place] TYPE: Emergency COMPLAINT: - FLU LIKE SYMPTOMS 08/08/2020 22:19 [facility] [place] TYPE: Emergency COMPLAINT: - POST OP PROBLEM DIAGNOSES: - COVID-19 - Other complications of procedures, not elsewhere classified, initial encounter - Essential (primary) hypertension - Chronic obstructive pulmonary disease, unspecified - Allergy status to penicillin - Other equipment operator intermodal yard (current) drug therapy - Allergy status to other drugs, medicaments and biological substances - Allergy status to narcotic agent - Other chest pain 01/11/2020 17:26 [facility] [place] TYPE: Emergency COMPLAINT: - MEDICATION PROBLEM DIAGNOSES: - Allergy status to penicillin - Other equipment operator intermodal yard (current) drug therapy - Allergy status to narcotic agent - Essential (primary) hypertension - Hypokalemia - Chronic obstructive pulmonary disease, unspecified - Poisoning by antiasthmatics, accidental (unintentional), initial encounter INPATIENT VISIT TRACKING (12 MO.) No inpatient visits to display in this time frame [email or web address]
[2020-08-14] MEDS ORDERED: ONDANSETRON ODT4 MG PO (17:35)
--- NOTE | 2020-08-15 11:11 | EKG ---
[facility] [address] [facility] [place] [address] Signed Normal sinus rhythm Left anterior fascicular block Possible Anterior infarct (cited on or before 11-JAN-2020) Abnormal ECG When compared with ECG of 08-AUG-2020 22:36, Questionable change in initial forces of Lateral leads T wave amplitude has decreased in Lateral leads Confirmed by ERMELINDA GILMORE MD ([id number]) on 08/15/2020 11:11:03 AM Electronically Signed By: ERMELINDA GILMORE MD 08/15/20 1111 PATIENT NAME: REINALDO HAWKINS Electrocardiogram DATE OF : 44 PHYSICIAN: ERMELINDA GILMORE MD REPORT #: [id number] REPORT IS CONFIDENTIAL AND NOT TO BE RELEASED WITHOUT AUTHORIZATION
== END 2020-08-14 19:35 | disposition home or self-care (01) ==
LOC: ED 15:01
DX: U07.1 COVID-19 (principal); R11.2 Nausea with vomiting, unspecified; J45.909 Unspecified asthma, uncomplicated; I10 Essential (primary) hypertension; J44.9 Chronic obstructive pulmonary disease, unspecified; Z88.0 Allergy status to penicillin; Z88.5 Allergy status to narcotic agent; Z88.8 Allergy status to other drugs, medicaments and biological substances; Z79.899 Other long term (current) drug therapy
CPT/HCPCS: 71045; 80053; 83735; 84484; 85025; 93005; 93010; 96374; 99284-25; A9270; J2405; J7030

== ENCOUNTER 2021-02-18 14:50 | Emergency (ER) | payer MEDICARE, OTHER ==
[~2021-02-18] VITALS: Ht 167.6 cm; Wt 61.2 kg
[~2021-02-18 14:50] MED LIST changes: +ONDANSETRON ODT4 MG PO
[2021-02-18] MEDS ORDERED: ONDANSETRON ODT4 MG PO (17:23)
== END 2021-02-18 18:34 | disposition home or self-care (01) ==
LOC: ED 14:50
DX: E87.6 Hypokalemia (principal); R11.10 Vomiting, unspecified; I10 Essential (primary) hypertension; J44.9 Chronic obstructive pulmonary disease, unspecified; Z88.0 Allergy status to penicillin; Z88.5 Allergy status to narcotic agent; Z88.8 Allergy status to other drugs, medicaments and biological substances; Z88.6 Allergy status to analgesic agent; Z79.899 Other long term (current) drug therapy; Z87.891 Personal history of nicotine dependence
CPT/HCPCS: 80053; 83690; 85025; 96365; 96375; 99284-25; J2405; J3480; J7030

== ENCOUNTER 2023-01-23 12:27 | Emergency (ER) | payer MEDICARE, OTHER ==
[~2023-01-23] VITALS: Ht 167.6 cm; Wt 61.2 kg
[2023-01-23 15:26] VITALS: BP 126/85
--- NOTE | 2023-01-24 22:08 | EKG ---
[facility] [address] [facility] [place] [address] Signed Normal sinus rhythm Left axis deviation Incomplete left bundle branch block Nonspecific ST abnormality Abnormal ECG When compared with ECG of 14-AUG-2020 15:19, T wave inversion no longer evident in Inferior leads Confirmed by Tran Warren MD () on 01/24/2023 10:08:26 PM Electronically Signed By: TRAN WARREN MD 01/24/23 2208 PATIENT NAME: REINALDO HAWKINS Electrocardiogram DATE OF : 44 PHYSICIAN: TRAN WARREN MD REPORT #: [id number] REPORT IS CONFIDENTIAL AND NOT TO BE RELEASED WITHOUT AUTHORIZATION
== END 2023-01-23 15:27 | disposition home or self-care (01) ==
LOC: ED 12:27
DX: U07.1 COVID-19 (principal); E87.6 Hypokalemia; I10 Essential (primary) hypertension; J44.9 Chronic obstructive pulmonary disease, unspecified; Z87.891 Personal history of nicotine dependence; Z88.0 Allergy status to penicillin; Z88.5 Allergy status to narcotic agent; Z88.6 Allergy status to analgesic agent; Z79.899 Other long term (current) drug therapy
CPT/HCPCS: 36415; 71045; 80053; 84484; 85025; 87502; 93005; 93010; 99284-25; A9270; C9803; U0003

== ENCOUNTER 2024-01-29 18:41 | Emergency (ER) | payer MEDICARE, OTHER ==
[~2024-01-29] VITALS: Ht 167.6 cm; Wt 65.0 kg
[2024-01-29] MEDS ORDERED: VALACYCLOVIR1000 MG PO (19:00)
[2024-01-29 19:19] LABS: BASOPHILS 0.5 % (0-2); EOSINOPHILS 0.7 % (0-6); HEMATOCRIT 37.2 % (35.0-50.0); HEMOGLOBIN 12.4 g/dL (12.0-18.0); LYMPHOCYTES 5.7 % (24-44); MCHC 33.5 g/dl (30-36); MCV 92.7 fl (81-99); MONOCYTES 3.5 % (0-12); NEUTROPHILS 89.6 % (39-80); PLATELET COUNT 353 K/uL (140-440); RBC 4.01 M/ul (4.3-5.7)
[2024-01-29 19:19] LABS: BILIRUBIN, URINE NEGATIVE (negative); BLOOD/HGB, URINE NEGATIVE (Negative); KETONE, URINE NEGATIVE (Negative); LEUK ESTERASE, URINE NEGATIVE (negative); NITRITE, URINE NEGATIVE (negative); PH, URINE 5.5 (5-7)
[2024-01-29 19:28] LABS: ALBUMIN 3.8 g/dL (3.4-5.0); ALBUMIN/GLOBULIN RATIO 1.15 (1.1-2.4); ANION GAP 13.3 (7-21); BILIRUBIN, TOTAL 0.8 ng/dL (0.2-1.0); BUN/CREATININE RATIO 16.4 (6.0-28.6); CALCIUM 8.6 mg/dL (8.5-10.1); CREATININE, SERUM 1.28 mg/dL (0.55-1.02); POTASSIUM 3.3 mmol/L (3.5-5.1); PROTEIN, TOTAL 7.1 g/dL (6.4-8.2)
[2024-01-29] MEDS ORDERED: ACETAMINOPHEN 325 MG TAB PO ONE (19:30)
[2024-01-29] MEDS ORDERED: SODIUM CHLORIDE 0.9% 1,000 ML IV PRN (19:30)
[2024-01-29] MEDS ORDERED: ondansetron HCL 4 MG/2 ML VIAL IV ONE (19:45)
[2024-01-29] MEDS ORDERED: LACTATED RINGER'S 1,000 ML IV ONE (19:45)
[2024-01-29 19:50] LABS: MAGNESIUM 1.5 mg/dL (1.8-2.4); TSH, 3RD GENERATION 2.484 uIU/mL (0.358-3.740)
[2024-01-29] MEDS ORDERED: MAGNESIUM OXIDE 400 MG TABLET PO ONE (21:00)
[2024-01-29 21:15] LABS: INFLUENZA B NAA NEGATIVE (NEGATIVE); RESPIRATORY SYNCYTIAL VIR NAA NEGATIVE (NEGATIVE)
[2024-01-29] MEDS ORDERED: AZITHROMYCIN 250 MG TAB PO ONE (22:00)
[2024-01-29] MEDS ORDERED: ZITHROMAX250 MG PO (22:02)
[2024-01-29 22:19] VITALS: BP 111/69
--- NOTE | 2024-01-30 18:30 | EKG ---
[facility] [address] [place] [address] Signed Normal sinus rhythm Right bundle branch block Left anterior fascicular block Bifascicular block Minimal voltage criteria for LVH, may be normal variant ( R in aVL ) Septal infarct , age undetermined Abnormal ECG When compared with ECG of 23-JAN-2023 12:58, (RBBB and left anterior fascicular block) has replaced Incomplete left bundle branch block Confirmed by HUBERT YBARRA MD ([id number]) on 01/30/2024 6:31:10 PM Electronically Signed By: HUBERT YBARRA 01/30/241829 PATIENT NAME: REINALDO HAWKINS Electrocardiogram DATE OF : 44 PHYSICIAN: HUBERT YBARRA REPORT #: [id number] REPORT IS CONFIDENTIAL AND NOT TO BE RELEASED WITHOUT AUTHORIZATION
== END 2024-01-29 22:19 | disposition home or self-care (01) ==
LOC: ED 18:41
PROVIDERS: Internal Medicine
DX: J44.0 Chronic obstructive pulmonary disease with (acute) lower respiratory infection (principal); J20.9 Acute bronchitis, unspecified; J12.9 Viral pneumonia, unspecified; E86.0 Dehydration; Z85.3 Personal history of malignant neoplasm of breast; Z87.891 Personal history of nicotine dependence; Z88.0 Allergy status to penicillin; Z88.5 Allergy status to narcotic agent; Z88.6 Allergy status to analgesic agent; Z79.899 Other long term (current) drug therapy
CPT/HCPCS: 36415; 51701; 71045; 80053; 81003; 83605; 83735; 84443; 84484; 85025; 87502; 93005; 93010; 99285-25; A9270; J2405; J7030; J7121; U0002